=== PATIENT | female | born 1945 | race Caucasian/White ===

== ENCOUNTER 2017-06-06 10:21 | Inpatient (IN) ==
[2017-06-06] MEDS ORDERED: 0.9 % Sodium Chloride 1,000 ML IVC ONE (10:35)
[2017-06-06] MEDS ORDERED: Ondansetron 4 MG/2 ML VIAL IVP ONE (10:35)
[2017-06-06 11:00] LABS: Hemoglobin 11.2 g/dL (11.5-15.4); Mean Corpuscular HGB Conc 32.9 g/dL (31.6-35.5); Mean Corpuscular Hemoglobin 25.5 pg (28.0-33.3); Mean Corpuscular Volume 77.4 fL (83.0-100.0); Mean Platelet Volume 9.5 fL (9.4-12.4); Platelet Count 273 K/mcL (140-400); Red Blood Count 4.39 M/mcL (3.82-4.97); Red Cell Distribution Width 14.1 % (11.5-14.5)
--- NOTE | 2017-06-06 11:02 | Emergency Department Note ---
Disposition Clinical Impression: Adenocarcinoma of colon metastatic to liver, Chemotherapy induced diarrhea, Dehydration, Hyponatremia, Hypokalemia GI bleed Qualifiers: GI bleed type/associated pathology: melena Qualified Code(s): K92.1 - Melena Disposition: Admitted As Inpatient Condition: Fair Referrals: Arin Ventura CNP [Primary Care Provider] - Forms: ED Satisfaction Letter Time of Disposition: 13:43 Nausea/Vomiting/Diarrhea HPI - General Chief complaint: ED Nausea/Vomiting/Diarrhea Stated complaint: N/V/D x1 week Time Seen by Provider: 06/06/17 10:28 Source: patient, family Mode of arrival: wheelchair Limitations: no limitations Nursing Notes Reviewed: Yes Vital Signs Reviewed: Yes - History of Present Illness HPI Narrative: Patient presents to ED with the chief complaint of nausea, vomiting and diarrhea. Patient has a history of colon cancer metastatic to the liver. She is currently receiving chemotherapy and received her second dose about 8 days ago. She states she did not have any issues with her first dose, but approximately 8 days ago she started developing profuse intermittently melanic diarrhea. She states that she has been seen and evaluated twice in the emergency department. Since then. She had a CT of her abdomen and pelvis as well as a C. difficile toxin of her stool. Reports that she was given Lomotil and told to follow-up with the cancer center. She reports that over the last 2 days she has continued to get worse to the point where any time she moves she is leaving "a streak of stool" she is having frequent episodes of diarrhea that are explosive in nature and very foul-smelling. She is now also complaining of vomiting and nausea. States that the vomiting is very foul-smelling. Denies any previous abdominal surgeries. States that she has not really been able to eat or drink in the last 48 hours. She also feels short of breath and lightheaded, but denies any chest pain. Denies any abdominal pain other than feeling sore in her epigastrium from vomiting - Related Data Home Medications Medication Instructions Recorded Confirmed Aspirin [Adult Low Dose Aspirin EC] 81 mg PO DAILY 10/28/15 06/06/17 Atorvastatin [Lipitor] 40 mg PO HS 10/28/15 06/06/17 Ezetimibe [Zetia] 10 mg PO DAILY 10/28/15 06/06/17 Insulin Glargine,Hum.rec.anlog 24 unit SQ HS 10/28/15 06/06/17 [Lantus Solostar] Lisinopril [Zestril] 10 mg PO DAILY 10/28/15 06/06/17 amLODIPine [Norvasc] 2.5 mg PO DAILY 10/28/15 06/06/17 Amitriptyline HCl 75 mg PO DAILY 04/24/17 06/06/17 Docusate Sodium [Dok] 100 mg PO DAILY 04/24/17 06/06/17 Escitalopram [Lexapro] 20 mg PO DAILY 04/24/17 06/06/17 GlipiZIDE [Glipizide Xl] 5 mg PO DAILY 04/24/17 06/06/17 Insulin ASPART [NovoLOG] 0 unit SQ TID PRN 04/24/17 06/06/17 Omeprazole [PriLOSEC] 20 mg PO DAILY 04/24/17 06/06/17 Metformin HCl [Metformin HCl ER] 500 mg PO BID 06/06/17 06/06/17 Oxybutynin [Ditropan] 5 mg PO DAILY 06/06/17 06/06/17 Previous Rx's Medication Instructions Recorded Doxycycline 100 mg PO BID #60 capsule 05/10/17 LORazepam [Ativan] 1 mg PO Q4HR PRN #60 tablet 05/10/17 Lidocaine/Prilocaine [Emla] 1 appl TP AD PRN #30 gm 05/10/17 Promethazine [Phenergan] 25 mg PO Q6HR PRN #60 tablet 05/10/17 Nystatin OINT [Mycostatin] 1 appl TP QID #1 tube 06/01/17 Diphenoxylate/Atropine [Lomotil 1 each PO TID #30 tablet 06/06/17 2.5 mg/0.025 mg] Allergies Allergy/AdvReac Type Severity Reaction Status Date / Time No Known Allergies Allergy Verified 06/06/17 10:25 All systems ED: reviewed and negative except as stated. Constitutional: Reports: weakness. Denies: fever Cardiovascular: Denies: chest pain Respiratory: Reports: dyspnea Gastrointestinal: Reports: nausea, vomiting, diarrhea, melena. Denies: abdominal pain Genitourinary: Denies: dysuria Musculoskeletal: Denies: back pain Integumentary: Denies: rash Neurological: Reports: weakness. Denies: headache, confusion Endocrine: Reports: fatigue Past Medical History - Past Medical History Attestation: Yes The following information was validated with the patient. Source: patient Medical history: Reports: arthritis, cancer, coronary artery disease, diabetes, hyperlipidemia, hypertension Surgical history: Reports: cholecystectomy Psychiatric history: Reports: anxiety AREA CAPTAIN history: Reports: no AREA CAPTAIN history - Social History Smoking Status: Never smoker Smokeless Tobacco Status: No Alcohol use: Reports: none Drug use: Reports: none Physical Exam - General Limitations: no limitations General appearance: alert, in no apparent distress, other (appears ill) - Head Head exam: atraumatic, normocephalic, normal inspection - Eye Eye exam: Present: normal appearance, PERRL, EOMI - ENT ENT exam: mucous membranes dry, other (foul smelling breath, fecal type smell) - Chest Chest inspection: Present: normal inspection, symmetric chest wall rise - Respiratory Respiratory exam: Present: normal lung sounds bilaterally - Cardiovascular Cardiovascular exam: Present: tachycardia, normal heart sounds - Abdominal Exam Abdominal exam: Present: soft, Non-Tender, distention, hyperactive bowel sounds. Absent: guarding, rebound - Extremities Exam Extremities exam: Present: normal inspection, full ROM, normal capillary refill. Absent: tenderness, pedal edema - Neurological Exam Neurological exam: Present: alert, oriented X3 - Skin Skin exam: Present: warm, dry, intact, pallor Course Course Narrative: 72-year-old female presenting with diarrhea and nausea and vomiting. Appears ill. Is on chemotherapy for metastatic colon and liver cancer. Will workup and admit. She did just have a CT of her abdomen and pelvis 2 days ago, however. Her breath does smell of fecal material and I am concern over potential bowel obstruction, so we will image her again. Vital Signs Temperature 98.1 F 06/06/17 10:22 Pulse Rate 105 06/06/17 10:22 Respiratory Rate 16 06/06/17 10:22 Blood Pressure 112/75 06/06/17 10:22 O2 Sat by Pulse Oximetry 96 06/06/17 10:22 Temperature 98.1 F 06/06/17 10:22 Pulse Rate 93 06/06/17 12:16 Respiratory Rate 20 06/06/17 12:16 Blood Pressure 106/62 06/06/17 12:16 O2 Sat by Pulse Oximetry 100 06/06/17 12:16 Oxygen Delivery Oxygen Delivery Room Air Nausea/Vomiting/Diarrhea - Medical Records Medical records reviewed: Yes I reviewed the patient's medical records. - Lab Data Lab results reviewed: Yes I reviewed the patient's lab results. Result diagrams: 06/06/17 10:49 06/06/17 10:49 Lab Results 06/06/17 06/06/17 06/06/17 Range/Units 10:49 10:49 10:49 WBC 4.5 (4.3-11.1) K/mcL RBC 4.39 (3.82-4.97) M/mcL Hgb 11.2 L (11.5-15.4) g/dL Hct 34.0 L (35.3-44.9) % MCV 77.4 L (83.0-100.0) fL MCH 25.5 L (28.0-33.3) pg MCHC 32.9 (31.6-35.5) g/dL RDW 14.1 (11.5-14.5) % Plt Count 273 (140-400) K/mcL MPV 9.5 (9.4-12.4) fL Seg Neutrophils % 24.0 % Band Neutrophils % 12.0 H (0-4) % Lymphocytes % 32.0 % Monocytes % 24.0 % Eosinophils % 2.0 % Basophils % 2.0 % Metamyelocytes % 4.0 H (0) % Neutrophils # 1.6 (1.6-8.9) K/mcL Lymphocytes # 1.4 (0.6-4.6) K/mcL Monocytes # 1.1 (0.0-1.3) K/mcL Eosinophils # 0.1 (0.0-0.6) K/mcL Basophils # 0.1 (0.0-0.2) K/mcL Reactive Lymphocytes Present A (Not Present) Dohle Bodies Present A (Not Present) Platelet Estimate Normal (Normal) Polychromasia 1+ A (Not Present) Sodium 128 L (136-145) mEq/L Potassium 3.1 L (3.5-4.5) mEq/L Chloride 97 L (98-109) mEq/L Carbon Dioxide 16 L (19-29) mEq/L BUN 10 (7-20) mg/dL Creatinine 0.77 (0.57-1.11) mg/dL Est GFR ( Amer) > 60 (> 60) Est GFR (Non-Af Amer) > 60 (> 60) BUN/Creatinine Ratio 13 (6-26) Glucose 194 H (70-99) mg/dL Calculated Osmolality 270 L (280-300) Lactic Acid 1.2 (0.5-2.2) mmol/L Calcium 8.3 L (8.6-10.8) mg/dL Total Bilirubin 0.9 (0.2-1.2) mg/dL AST 18 (5-34) Units/L ALT 15 (0-55) Units/L Alkaline Phosphatase 82 (38-126) Units/L Serum Total Protein 6.5 (6.0-8.3) g/dL Albumin 2.5 L (3.5-5.0) g/dL Globulin 4.0 H (2.4-3.5) g/dL Albumin/Globulin Ratio 0.6 L (1.1-2.2) Lipase < 10 (8-78) Units/L Urine Color (Yellow) Urine Clarity (Clear) Urine pH (5.0-8.0) pH Units Ur Specific [place] (1.010-1.025) Urine Protein (Neg-Trace) mg/dL Urine Glucose (UA) (Normal) mg/dL Urine Ketones (Negative) mg/dL Urine Blood (Negative) Urine Nitrite (Negative) Urine Bilirubin (Negative) Urine Urobilinogen (Normal) mg/dL Ur Leukocyte Esterase (Negative) Urine Microscopic RBC (0-3) per hpf Urine Microscopic WBC (0-3) per hpf Ur Squamous Epith Cells (None-Few) per lpf Ur Transition Epith Cell (None-Few) per hpf Ur Renal Epithelial Cell (None-Few) per hpf Urine Bacteria (None-Few) per hpf Hyaline Casts (None-Few) per lpf WBC Casts (None Seen) per lpf Urine Mucus (Few) Ur Culture Indicated? (NO) Stool Occult Blood (Negative) Specimen Rejected Blood Type Antibody Screen 06/06/17 06/06/17 06/06/17 Range/Units 10:49 10:54 10:55 WBC (4.3-11.1) K/mcL RBC (3.82-4.97) M/mcL Hgb (11.5-15.4) g/dL Hct (35.3-44.9) % MCV (83.0-100.0) fL MCH (28.0-33.3) pg MCHC (31.6-35.5) g/dL RDW (11.5-14.5) % Plt Count (140-400) K/mcL MPV (9.4-12.4) fL Seg Neutrophils % % Band Neutrophils % (0-4) % Lymphocytes % % Monocytes % % Eosinophils % % Basophils % % Metamyelocytes % (0) % Neutrophils # (1.6-8.9) K/mcL Lymphocytes # (0.6-4.6) K/mcL Monocytes # (0.0-1.3) K/mcL Eosinophils # (0.0-0.6) K/mcL Basophils # (0.0-0.2) K/mcL Reactive Lymphocytes (Not Present) Dohle Bodies (Not Present) Platelet Estimate (Normal) Polychromasia (Not Present) Sodium (136-145) mEq/L Potassium (3.5-4.5) mEq/L Chloride (98-109) mEq/L Carbon Dioxide (19-29) mEq/L BUN (7-20) mg/dL Creatinine (0.57-1.11) mg/dL Est GFR ( Amer) (> 60) Est GFR (Non-Af Amer) (> 60) BUN/Creatinine Ratio (6-26) Glucose (70-99) mg/dL Calculated Osmolality (280-300) Lactic Acid (0.5-2.2) mmol/L Calcium (8.6-10.8) mg/dL Total Bilirubin (0.2-1.2) mg/dL AST (5-34) Units/L ALT (0-55) Units/L Alkaline Phosphatase (38-126) Units/L Serum Total Protein (6.0-8.3) g/dL Albumin (3.5-5.0) g/dL Globulin (2.4-3.5) g/dL Albumin/Globulin Ratio (1.1-2.2) Lipase (8-78) Units/L Urine Color Dark Yellow (Yellow) Urine Clarity Slightly Hazy (Clear) Urine pH 6.0 (5.0-8.0) pH Units Ur Specific [place] 1.017 (1.010-1.025) Urine Protein 100 H (Neg-Trace) mg/dL Urine Glucose (UA) 100 H (Normal) mg/dL Urine Ketones 15 H (Negative) mg/dL Urine Blood Moderate H (Negative) Urine Nitrite Negative (Negative) Urine Bilirubin Small H (Negative) Urine Urobilinogen Normal (Normal) mg/dL Ur Leukocyte Esterase Negative (Negative) Urine Microscopic RBC 15-30 H (0-3) per hpf Urine Microscopic WBC 15-30 H (0-3) per hpf Ur Squamous Epith Cells Many H (None-Few) per lpf Ur Transition Epith Cell Few (None-Few) per hpf Ur Renal Epithelial Cell Few (None-Few) per hpf Urine Bacteria None Seen (None-Few) per hpf Hyaline Casts Many H (None-Few) per lpf WBC Casts Few H (None Seen) per lpf Urine Mucus Many H (Few) Ur Culture Indicated? YES A (NO) Stool Occult Blood Positive A (Negative) Specimen Rejected Hemolyzed Blood Type Antibody Screen 06/06/17 Range/Units 11:17 WBC (4.3-11.1) K/mcL RBC (3.82-4.97) M/mcL Hgb (11.5-15.4) g/dL Hct (35.3-44.9) % MCV (83.0-100.0) fL MCH (28.0-33.3) pg MCHC (31.6-35.5) g/dL RDW (11.5-14.5) % Plt Count (140-400) K/mcL MPV (9.4-12.4) fL Seg Neutrophils % % Band Neutrophils % (0-4) % Lymphocytes % % Monocytes % % Eosinophils % % Basophils % % Metamyelocytes % (0) % Neutrophils # (1.6-8.9) K/mcL Lymphocytes # (0.6-4.6) K/mcL Monocytes # (0.0-1.3) K/mcL Eosinophils # (0.0-0.6) K/mcL Basophils # (0.0-0.2) K/mcL Reactive Lymphocytes (Not Present) Dohle Bodies (Not Present) Platelet Estimate (Normal) Polychromasia (Not Present) Sodium (136-145) mEq/L Potassium (3.5-4.5) mEq/L Chloride (98-109) mEq/L Carbon Dioxide (19-29) mEq/L BUN (7-20) mg/dL Creatinine (0.57-1.11) mg/dL Est GFR ( Amer) (> 60) Est GFR (Non-Af Amer) (> 60) BUN/Creatinine Ratio (6-26) Glucose (70-99) mg/dL Calculated Osmolality (280-300) Lactic Acid (0.5-2.2) mmol/L Calcium (8.6-10.8) mg/dL Total Bilirubin (0.2-1.2) mg/dL AST (5-34) Units/L ALT (0-55) Units/L Alkaline Phosphatase (38-126) Units/L Serum Total Protein (6.0-8.3) g/dL Albumin (3.5-5.0) g/dL Globulin (2.4-3.5) g/dL Albumin/Globulin Ratio (1.1-2.2) Lipase (8-78) Units/L Urine Color (Yellow) Urine Clarity (Clear) Urine pH (5.0-8.0) pH Units Ur Specific [place] (1.010-1.025) Urine Protein (Neg-Trace) mg/dL Urine Glucose (UA) (Normal) mg/dL Urine Ketones (Negative) mg/dL Urine Blood (Negative) Urine Nitrite (Negative) Urine Bilirubin (Negative) Urine Urobilinogen (Normal) mg/dL Ur Leukocyte Esterase (Negative) Urine Microscopic RBC (0-3) per hpf Urine Microscopic WBC (0-3) per hpf Ur Squamous Epith Cells (None-Few) per lpf Ur Transition Epith Cell (None-Few) per hpf Ur Renal Epithelial Cell (None-Few) per hpf Urine Bacteria (None-Few) per hpf Hyaline Casts (None-Few) per lpf WBC Casts (None Seen) per lpf Urine Mucus (Few) Ur Culture Indicated? (NO) Stool Occult Blood (Negative) Specimen Rejected Blood Type A NEGATIVE Antibody Screen POSITIVE - Radiology Data Radiology results reviewed: Yes I reviewed the patient's radiology results. - EKG Data EKG attestation: Yes I reviewed and interpreted this EKG. EKG results narrative: Sinus tach, rate 101, MI interval 159, QRS 120, QTC 406, left axis deviation with right bundle branch block, similar morphology to previous S.B.A.R. - Crystal Situation: Demographics, MOA Background: Presenting Complaint, Relevant PMH, Meds, & Allergies Assessment: Vital Signs, Course and respsone to treatment, Exam Concerns, Patient/Family Expectation, Pertinant Lab Results, Outstanding Labs Recommendation: Barrier(s) to disposition, Recommendation based on pending studies, treatments, or consults Crystal Report Given to: Dr. Stacie Rojas Repor Time: 13:42
[2017-06-06 11:10] LABS: Bilirubin,Urine Small (Negative); Blood,Urine Moderate (Negative); Color,Urine Dark Yellow (Yellow); Glucose,Urine (UA) 100 mg/dL (Normal); Ketones,Urine 15 mg/dL (Negative); Leukocyte Esterase,Urine Negative (Negative); Nitrite,Urine Negative (Negative); Protein,Urine 100 mg/dL (Neg-Trace); Specific Gravity,Urine 1.017 (1.010-1.025); Urobilinogen,Urine Normal (Normal)
[2017-06-06 11:12] LABS: Bacteria,Urine None Seen per hpf (None-Few); RBC,Urine 15-30 per hpf (0-3); Squamous Epithelial Cell,Urine Many per lpf (None-Few); WBC,Urine 15-30 per hpf (0-3)
[2017-06-06 11:19] LABS: Clarity,Urine Slightly Hazy (Clear)
[2017-06-06 11:26] LABS: Alanine Aminotransferase 15 Units/L (0-55); Albumin 2.5 g/dL (3.5-5.0); Albumin/Globulin Ratio 0.6 (1.1-2.2); Alkaline Phosphatase 82 Units/L (38-126); Aspartate Amino Transferase 18 Units/L (5-34); BUN/Creatinine Ratio 13 (6-26); Bilirubin,Total 0.9 mg/dL (0.2-1.2); Blood Urea Nitrogen 10 mg/dL (7-20); Calcium 8.3 mg/dL (8.6-10.8); Carbon Dioxide 16 mEq/L (19-29); Chloride 97 mEq/L (98-109); Glucose 194 mg/dL (70-99); Osmolality,Calculated 270 (280-300); Potassium 3.1 mEq/L (3.5-4.5); Sodium 128 mEq/L (136-145); Total Protein 6.5 g/dL (6.0-8.3); eGFR For African Americans > 60 (> 60); eGFR For Non-African Americans > 60 (> 60)
[2017-06-06 11:27] LABS: Lipase < 10 Units/L (8-78)
[2017-06-06 11:28] LABS: Mucus,Urine Many (Few)
[2017-06-06 11:29] LABS: Hyaline Casts,Urine Many per lpf (None-Few); White Blood Cell Casts,Urine Few per lpf (None Seen)
[2017-06-06 11:30] LABS: Renal Epithelial Cells,Urine Few per hpf (None-Few); Transitional Epi Cells,Urine Few per hpf (None-Few)
--- NOTE | 2017-06-06 11:33 | Emergency Department Note ---
START Narrative - START START: I examined this patient and my medical decision-making was reviewed with the emergency medicine resident. I agree with the documented findings, disposition and treatment plan as described except to the extent set forth below. Patient seen with emergency medicine resident Dr. Abdoul Christina, Please see a copy of his note for details of the H&P, ED evaluation, management and disposition. I have independently evaluated the patient and confirmed appropriate portions of the history and physical exam. Briefly: 72-year-old female, undergoing chemotherapy for metastatic colon and liver cancer. Patient noticed she had melanic dark stools. Which were occult blood positive on testing. She profoundly dehydrated. She is getting IV fluids and labs and abdominopelvic CT. Patient will be admitted. Provided 45 minutes of critical care services for this patient. Disposition pending.
[2017-06-06 11:36] LABS: Basophils # 0.1 K/mcL (0.0-0.2); Eosinophils # 0.1 K/mcL (0.0-0.6); Lymphocytes # 1.4 K/mcL (0.6-4.6); Monocytes # 1.1 K/mcL (0.0-1.3); Neutrophils # 1.6 K/mcL (1.6-8.9)
[2017-06-06 11:37] LABS: Reactive Lymphocytes Present (Not Present)
[2017-06-06 11:39] LABS: Dohle Bodies Present (Not Present); Platelet Estimate Normal (Normal); Polychromasia 1+ (Not Present)
--- NOTE | 2017-06-06 14:15 | Event Note ---
Date of Encounter: 06/06/17 Time of Encounter: 14:12 1. Severe dehydration likely secondary to acute gastroenteritis possibly infectious Continue hydration with IV fluids Consider antibiotic therapy depending on the etiology, send GI panel to clarify etiology 2. Hyponatremia and hypokalemia Add potassium to the IV fluids 3. History of colon cancer currently on chemotherapy, which can be causing also her diarrhea CT scan shows a liver mass that needs to be followed by oncology 4. Diabetes type 2 insulin-dependent, continue insulin sliding scale 5. Hypertension, stable 6. Positive Hemoccult, monitor CBC Protonix IV for GI prophylaxis and sequential compression devices for DVT prophylaxis. The patient will be admitted for observation, full code. Time spent on this admission 40 minutes H&P will be completed by PETTY Smith
[2017-06-06 16:43] LABS: Hematocrit 30.9 % (35.3-44.9); Hemoglobin 10.2 g/dL (11.5-15.4)
[2017-06-06] MEDS ORDERED: *HR* HYDROcodone/Acet 5/325 mg TABLET PO PRN (17:13)
[2017-06-06] MEDS ORDERED: Naloxone 0.4 MG/ML INJ IVP PRN (17:13)
[2017-06-06] MEDS ORDERED: *HR* Morphine 2 MG/ML SYRINGE IVP PRN (17:13)
[2017-06-06] MEDS ORDERED: Ondansetron 4 MG/2 ML VIAL IVP PRN (17:13)
[2017-06-06] MEDS ORDERED: Acetaminophen 325 MG TABLET PO PRN (17:13)
[2017-06-06] MEDS ORDERED: *HR* LORazepam 1 MG TABLET PO PRN (17:26)
--- NOTE | 2017-06-06 17:42 | Internal Med History&Physical ---
<Edward Smith - Last Filed: 06/06/17 18:57> Date of Encounter: 06/06/17 Time of Encounter: 16:30 Assessment and Plan (1) Dehydration Current visit: Yes Status: Acute Acute dehydration due to gastroenteritis, possibly infectious. IV fluids for hydration. GI panel ordered to determine infectious etiology. Consider abx therapy based on results. Monitor I&O, daily weight, and electrolytes in follow- up labs. (2) Electrolyte imbalance Current visit: Yes Status: Acute Acute electrolyte imbalance due to cyclical vomiting and diarrhea over the past 8 days. On admission, sodium 128, potassium 3.1, chloride 97, calcium 8.3. Will add potassium to IV 0.9 NS. Add calcium carbonate PO TID. (3) Heme positive stool Current visit: Yes Status: Acute Fecal hemoccult positive today. Monitor H/H Q6 and follow-up labs. (4) Nausea & vomiting Current visit: Yes Status: Acute Patient presents with nausea/vomiting over the past week. IVP Zofran Q6 PRN and IVP Protonix 40 mg BID. Monitor I&O and daily weight. Advance diet as tolerated. Qualifiers: Vomiting type: cyclical vomiting Vomiting Intractability: non-intractable Qualified Code(s): G43.A0 - Cyclical vomiting, not intractable (5) Diarrhea Current visit: Yes Status: Acute Acute diarrhea present for the past week, described as worsening over the past few days, watery, and explosive. Patient denies visible blood in stool. C. diff culture negative earlier this week. GI panel ordered to identify possible infectious etiology. Consider adding appropriate abx coverage based on results. Monitor I&O and daily weight. Advance diet as tolerated. IV fluids for dehydration. Qualifiers: Diarrhea type: unspecified type Qualified Code(s): R19.7 - Diarrhea, unspecified (6) History of colon cancer Current visit: Yes Status: Chronic Patient reports hx of colon cancer with mets to the liver. Recent chemotherapy treatment 8 days ago could be cause of current N/V/D. CT of the abdomen/pelvis today shows central hepatic mass measuring approximately 5.8 x 4.7 cm in size. Evaluate on prior contrast-enhanced CT. Associated intra-hepatic biliary ductal dilatation. Findings highly suspicious for cholangiocarcinoma. Metastatic disease is also in the differential. Patient currently followed by Dr. Rodriguez. (7) HTN (hypertension) Current visit: Yes Status: Chronic Hx of chronic HTN. Monitor patient and VS and continue Norvasc and lisinopril. Qualifiers: Hypertension type: essential hypertension Qualified Code(s): I10 - Essential (primary) hypertension (8) HLD (hyperlipidemia) Current visit: Yes Status: Chronic Hx of chronic HLD. Lipid panel ordered in a.m. labs. Continue Lipitor and Zetia. Qualifiers: Hyperlipidemia type: pure hypercholesterolemia Qualified Code(s): E78.00 - Pure hypercholesterolemia, unspecified; E78.0 - Pure hypercholesterolemia (9) CAD (coronary artery disease) Current visit: Yes Status: Chronic Patient reports hx of CAD. Continuous cardiac telemetry. Will continue patient' s norvasc, lisinopril, Lipitor, and Zetia. Will hold PO aspirin d/t current bleeding of unknown source and postive fecal hemoccult. Qualifiers: Coronary Disease-Associated Artery/Lesion type: unspecified vessel or lesion type [place] vs. transplanted heart: [place] heart Associated angina: angina presence unspecified Qualified Code(s): I25.10 - Atherosclerotic heart disease of [place] coronary artery without angina pectoris (10) Diabetes Current visit: Yes Status: Chronic Hx of chronic diabetes controlled with oral antihyperglycemic medications and insulin. Will hold patient's oral medication and administer low-dose correction sliding scale insulin with hypoglycemic protocol. Blood glucose monitoring before meals at bedtime. A1c ordered in a.m. labs. Qualifiers: Diabetes mellitus type: type 2 Diabetes mellitus complication status: with unspecified complications Diabetes mellitus alf insulin use: with meat specialist use Qualified Code(s): E11.8 - Type 2 diabetes mellitus with unspecified complications; Z79.4 - emanations analysis technician (current) use of insulin (11) DVT prophylaxis Current visit: Yes Status: Acute Bilateral SCDs on patient's LEs for DVT prophylaxis. Pharmacologic DVT prophylaxis contraindicated due to patient's current bleeding of unknown source. Monitor patient for continued signs of bleeding/changes in H/H. Internal Medicine - H&P: HPI Chief complaint: Nausea/Vomiting/Diarrhea Admitted From: Emergency Dept Plans for Post Hospital Care: Home History of present illness: is a 72 year old female with medical history of arthritis, CAD, diabetes controlled with oral and insulin medications, HLD, HTN, and colon cancer with metastases to liver presents to ED with chief complaint of nausea, vomiting, diarrhea for the past 8 days. Patient describes diarrhea as explosive and watery and confirms she finished doxycycline 100 mg twice a day on May 27 for prophylaxis for chemotherapy preparation. Patient reports she is still nauseous and vomited twice today and was unable to keep her medications down. Patient's last chemotherapy treatment was 8 days ago. Patient was given Lomotil at the cancer center to address diarrhea. Previous C. difficile toxin of her stool was negative this week. Patient states she has been unable to keep liquids or foods down for the past week. Patient also reports generalized weakness, SOB, and fatigue but denies recent illness, fever , chills, changes in vision, lightheadedness, dizziness, chest pain, palpitations, pre-syncope, or syncope. Upon admission, patient's vital signs included temperature of 98.1F, heart rate of 105 bpm, respiratory rate 16, BP 112/75, and SPO 296% on room air. Pertinent abnormal lab values include Hgb of 10.2, HCT of 34.0, MCV of 77.4, MCH 25.5, sodium of 128, potassium 3.1, chloride of 97, CO2 16, calcium of 8.3, glucose of 194. Fecal Hemoccult positive. Initial urinalysis indicative for culture. Patient was previously typed and screened (A negative, Positive antibody screen). Hgb and Hct unchanged from 06/01/17. CT of the abdomen/pelvis today without contrast shows central hepatic mass measuring approximately 5.84.7 cm in size better evaluated on prior contrast enhanced CT. There is associated intrahepatic biliary ductal dilatation. Findings are highly suspicious for a cholangiocarcinoma. Metastatic disease is also in the differential. No evidence of acute bowel obstruction. No significant change in the appearance of the bowel compared to prior exam. Atherosclerotic disease. Assessment patient is alert and oriented 3 and states she is only experiencing mild discomfort and nausea at this time. HR is a regular due to patient's heart murmur. Lungs are clear bilaterally on auscultation. Patient is hemodynamically stable reports only mild distress at this time due to nausea. Information taken from family, patient, chart review, and previous medical records. is a high risk for morbidity based on current dehydration and symptoms of N/V/diarrhea, immunocompromised status due to chemotherapy, risk for C. difficile, history, and risk factors and will be placed as observation status. Time spent with patient and family >40 minutes. Past Med Surg Social Fam HX - Past Medical History Source: patient, old records reviewed, obtained from family Medical history: arthritis, cancer, coronary artery disease, diabetes, hyperlipidemia, hypertension Psychiatric history: anxiety - Past Surgical History Surgical History: cholecystectomy, knee replacement - Social History Smoking Status: Never smoker Smokeless Tobacco Status: No Alcohol use: none Drug use: none Current living situation: Home, With Family Activity Level: Uses cane/walker Recent Out of Country Travel Within the Last 8 Weeks: No Exposure or Possible Exposure to Illness During Travel: No - Family History Father Race: Family Member Ethnicity: Non- Living Status: Age at : 86 Cause of : Old age Mother Race: Family Member Ethnicity: Non- Living Status: Age at : 85 Cause of : Old age Hx Family Cardiac Disorders: Yes (HD) Sister Race: Family Member Ethnicity: Non- Living Status: Age at : 66 Cause of : Complications from stroke Hx Family Cardiac Disorders: Yes (Stroke) Internal Medicine - H&P: Meds Aspirin [Adult Low Dose Aspirin EC] 81 mg PO DAILY 10/28/15 [History] Atorvastatin [Lipitor] 40 mg PO HS 10/28/15 [History] Ezetimibe [Zetia] 10 mg PO DAILY 10/28/15 [History] Insulin Glargine,Hum.rec.anlog [Lantus Solostar] 24 unit SQ HS 10/28/15 [History ] Lisinopril [Zestril] 10 mg PO DAILY 10/28/15 [History] amLODIPine [Norvasc] 2.5 mg PO DAILY 10/28/15 [History] Amitriptyline HCl 75 mg PO DAILY 04/24/17 [History] Docusate Sodium [Dok] 100 mg PO DAILY 04/24/17 [History] Escitalopram [Lexapro] 20 mg PO DAILY 04/24/17 [History] GlipiZIDE [Glipizide Xl] 5 mg PO DAILY 04/24/17 [History] Insulin ASPART [NovoLOG] 0 unit SQ TID PRN 04/24/17 [History] Omeprazole [PriLOSEC] 20 mg PO DAILY 04/24/17 [History] Doxycycline 100 mg PO BID #60 capsule 05/10/17 [Rx] LORazepam [Ativan] 1 mg PO Q4HR PRN #60 tablet 05/10/17 [Rx] Lidocaine/Prilocaine [Emla] 1 appl TP AD PRN #30 gm 05/10/17 [Rx] Promethazine [Phenergan] 25 mg PO Q6HR PRN #60 tablet 05/10/17 [Rx] Nystatin OINT [Mycostatin] 1 appl TP QID #1 tube 06/01/17 [Rx] Diphenoxylate/Atropine [Lomotil 2.5 mg/0.025 mg] 1 each PO TID #30 tablet [Rx] Metformin HCl [Metformin HCl ER] 500 mg PO BID 06/06/17 [History] Oxybutynin [Ditropan] 5 mg PO DAILY 06/06/17 [History] 3 Allergy/AdvReac Type Severity Reaction Status Date / Time No Known Allergies Allergy Verified 06/06/17 10:25 All Systems PM: A 10-system review of systems was performed and is negative for pertinent findings except as documented above in the HPI. - Constitutional Constitutional: as per HPI, fatigue, weakness, no chills, no fever(s), no night sweats - EENT Eyes: no change in vision, no discharge, no pain, no photophobia Ears: no ear discharge, no ear pain, no tinnitus Nose, mouth and throat: no dysphagia, no nasal discharge, no neck pain, no sore throat - Breasts Breasts: as per HPI - Cardiovascular Cardiovascular ROS IM: as per HPI, dyspnea, irregular heart rhythm - Respiratory Respiratory: as per HPI, dyspnea - Gastrointestinal Gastrointestinal: as per HPI, diarrhea, nausea, vomiting - Genitourinary Genitourinary: no change in urinary stream, no dysuria, no flank pain, no hematuria Menstruation: as per HPI - Musculoskeletal Musculoskeletal ROS IM: no numbness, no tingling - Integumentary Integumentary IM: no rash, no unusual bruising - Neurological Neurological ROS: weakness, no confusion, no convulsions, no focal weakness, no numbness, no tingling, no tremor(s) - Psychiatric Psychiatric: as per HPI - Endocrine Endocrine IM: as per HPI - Hematologic/Lymphatic Hematologic/Lymphatic: no easy bruising - Allergic/Immunologic Allergic/Immunologic: as per HPI - Constitutional Vitals: Temp Pulse Resp BP Pulse Ox 97.6 F 89 15 130/74 99 06/06/17 15:01 06/06/17 15:01 06/06/17 15:01 06/06/17 15:01 06/06/17 15:01 General appearance: Present: cooperative, mild distress, A&O X 3, pleasant, obese, answers questions appropriately - Head Head exam: Present: atraumatic, normocephalic - Eye Eye exam: Present: PERRL, conjuntiva pink, sclera anicteric Pupils: Present: PERRL - ENT ENT exam: Present: normal exam, normal external ear exam - Neck Neck exam general surgery: Present: normal inspection, supple, trachea midline - Respiratory Respiratory exam: Present: CTAB. Absent: accessory muscle use, rales, rhonchi, wheezes - Cardiovascular Cardiovascular exam: Present: irregular rhythm - GI/Abdominal GI/Abdominal exam: Present: normal bowel sounds, soft, no peritoneal signs. Absent: distended, tenderness - Rectal Rectal exam: Present: deferred - Additional comments: exam deferred. - Extremities Exam Extremities exam: Present: warm, radial pulses palpable and symmetrical. Absent : calf tenderness, cyanotic, pedal edema - Back Exam Back exam: Present: normal inspection - Neurological Exam Neurological exam: Present: CN II-XII intact, oriented X3, no focal deficits. Absent: pronater drift, facial droop, speech deficit - Psychiatric Psychiatric exam: Present: normal affect, normal mood - Skin Skin exam: Present: dry, intact Internal Med - H&P Results - Labs CBC & Chem 7: 06/06/17 16:24 06/06/17 10:49 Labs: Short CBC 06/06/17 Range/Units 16:24 Hgb 10.2 L (11.5-15.4) g/dL Hct 30.9 L (35.3-44.9) % - EKG Data EKG shows normal: sinus rhythm Rate: tachycardia - EKG Data Prior EKG available for review: yes EKG comments: 06/06/17 18:16 EKG dated 06/13/12 shows sinus rhythm with incomplete RBBB, nonspecific T-wave changes and septal leads. Normal ECG. EKG dated 06/06/17 sinus tachycardia with right bundle branch block. Abnormal ECG. <Rainer-Matovelle,Alcides H - Last Filed: 06/07/17 07:16> Date of Encounter: 06/07/17 Internal Medicine - H&P: HPI History of present illness: is a 72 year old female All Systems PM: A 10-system review of systems was performed and is negative for pertinent findings except as documented above in the HPI. - Constitutional Vitals: Temp Pulse Resp BP Pulse Ox 97.9 F 80 14 113/72 96 06/07/17 02:50 06/07/17 02:50 06/07/17 02:50 06/07/17 02:50 06/07/17 02:50 Internal Med - H&P Results - Labs CBC & Chem 7: 06/07/17 05:19 06/07/17 05:19 Labs: Short CBC 06/06/17 06/06/17 06/07/17 Range/Units 16:24 22:09 05:19 WBC 3.9 L (4.3-11.1) K/mcL Hgb 10.2 L 9.6 L 9.2 L (11.5-15.4) g/dL Hct 30.9 L 30.0 L 27.9 L (35.3-44.9) % Plt Count 219 (140-400) K/mcL Neutrophils # 1.5 L (1.6-8.9) K/mcL BMP 06/07/17 05:19 Sodium 132 L Potassium 2.8 L Chloride 104 Carbon Dioxide 21 BUN 8 Creatinine 0.72 Glucose 131 H Calcium 7.5 L Liver Function 06/07/17 Range/Units 05:19 Total Bilirubin 0.5 (0.2-1.2) mg/dL AST 21 (5-34) Units/L ALT 12 (0-55) Units/L Alkaline Phosphatase 65 (38-126) Units/L Albumin 2.0 L (3.5-5.0) g/dL - Attending Attestation 1. Severe dehydration likely secondary to acute gastroenteritis possibly infectious Continue hydration with IV fluids Consider antibiotic therapy depending on the etiology, send GI panel to clarify etiology 2. Hyponatremia and hypokalemia Add potassium to the IV fluids 3. History of colon cancer currently on chemotherapy, which can be causing also her diarrhea CT scan shows a liver mass that needs to be followed by oncology 4. Diabetes type 2 insulin-dependent, continue insulin sliding scale 5. Hypertension, stable 6. Positive Hemoccult, monitor CBC Protonix IV for GI prophylaxis and sequential compression devices for DVT prophylaxis. The patient will be admitted for observation, full code. Time spent on this admission 40 minutes For this encounter, I have reviewed the CAR STEREO INSTALLER or PA documentation, treatment plan, and medical decision making; and I have had face to face time with this patient.
[2017-06-06] MEDS ORDERED: Dextrose Gel 15 GM PO PRN ×2 (18:41)
[2017-06-06] MEDS ORDERED: D5% in Water 1,000 ML IVC PRN (18:41)
[2017-06-06] MEDS ORDERED: *HR* Dextrose 50 % in Water (Syg) 50 ML SYRINGE IVP PRN (18:41)
--- NOTE | 2017-06-06 19:53 | Electrocardiograph Report ---
[place] [id number] Test Date: 2017-06-06 Pat Name: Keri Miller Department: 103 Room: 3A48 Gender: F Site Operations Manager: MEGHANA : 1945 Requested By: Abdoul Christina Order Number: [id number] Reading MD: Angelo Ramirez MD Measurements Intervals [place] Rate: 101 P: 43 IA: 159 QRS: 2 QRSD: 120 T: 25 QT: 348 QTc: 406 Interpretive Statements SINUS TACHYCARDIA RIGHT BUNDLE BRANCH BLOCK Electronically Signed On 06-06-2017 19:51:46 EDT by Angelo Ramirez MD
[2017-06-06] MEDS: Insulin LISPRO 300 UNITS/3 ML VIAL SQ SCH ×2 (20:28→20:29)
[2017-06-06] MEDS: Pantoprazole 40 MG VIAL IVP SCH (20:31)
[2017-06-06] MEDS: amLODIPine 5 MG TABLET PO SCH (20:32)
[2017-06-06 22:18] LABS: Hemoglobin 9.6 g/dL (11.5-15.4)
[2017-06-07 05:47] LABS: Basophils % 0.3 %; Eosinophils # 0.1 K/mcL (0.0-0.6); Eosinophils % 1.5 %; Hematocrit 27.9 % (35.3-44.9); Hemoglobin 9.2 g/dL (11.5-15.4); Immature Granulocytes % 0.5 % (0-4); Lymphocytes % 36.9 %; Mean Corpuscular Hemoglobin 25.8 pg (28.0-33.3); Mean Corpuscular Volume 78.4 fL (83.0-100.0); Mean Platelet Volume 9.6 fL (9.4-12.4); Monocytes # 0.9 K/mcL (0.0-1.3); Monocytes % 22.9 %; Neutrophils # 1.5 K/mcL (1.6-8.9); Platelet Count 219 K/mcL (140-400); Red Blood Count 3.56 M/mcL (3.82-4.97); Red Cell Distribution Width 14.3 % (11.5-14.5); Segmented Neutrophils % 37.9 %
[2017-06-07 05:53] LABS: Lymphocytes # 1.4 K/mcL (0.6-4.6)
[2017-06-07 05:58] LABS: INR 1.6; Prothrombin Time 17.1 Seconds (9.4-12.1)
[2017-06-07 06:00] LABS: Alanine Aminotransferase 12 Units/L (0-55); Albumin/Globulin Ratio 0.6 (1.1-2.2); Alkaline Phosphatase 65 Units/L (38-126); Aspartate Amino Transferase 21 Units/L (5-34); BUN/Creatinine Ratio 11 (6-26); Bilirubin,Total 0.5 mg/dL (0.2-1.2); Blood Urea Nitrogen 8 mg/dL (7-20); Calcium 7.5 mg/dL (8.6-10.8); Carbon Dioxide 21 mEq/L (19-29); Chloride 104 mEq/L (98-109); Chol/HDL Ratio 2.9 (0-4.9); Globulin 3.1 g/dL (2.4-3.5); Glucose 131 mg/dL (70-99); HDL Cholesterol 23 mg/dL (40-59); LDL Cholesterol,Calculated 32 mg/dL (0-99); Magnesium 1.1 mg/dL (1.6-2.6); Osmolality,Calculated 274 (280-300); Potassium 2.8 mEq/L (3.5-4.5); Sodium 132 mEq/L (136-145); Triglycerides 56 mg/dL (< 150); eGFR For African Americans > 60 (> 60); eGFR For Non-African Americans > 60 (> 60)
[2017-06-07 06:01] LABS: Activated Partial Thrombo Time 29.7 Seconds (26.0-36.0); Cholesterol 66 mg/dL (< 200); Total Protein 5.1 g/dL (6.0-8.3)
[2017-06-07] MEDS: Insulin LISPRO 300 UNITS/3 ML VIAL SQ SCH ×4 (07:57→23:41)
[2017-06-07] MEDS ORDERED: Potassium Chloride Elixir 20 MEQ/15 ML UDC PO ONE (08:48)
--- NOTE | 2017-06-07 08:59 | Internal Med Progress Note ---
<Ernestina Taylor - Last Filed: 06/07/17 10:59> Date of Encounter: 06/07/17 Time of Encounter: 08:58 - Assessment and plan (1) Diarrhea Current Visit: Yes Status: Acute Assessment and plan: Acute diarrhea for 8 days that has been watery and multiple times a day. C diff culture was negative earlier this week may be due to gastroenteritis, infectious etiology. Consider metastases etiology. Patient has a history of colon cancer with metastases deliver. Followed by Dr. Rodriguez Recent chemotherapy treatment 8 days ago and may be the cause of the current nausea vomiting and diarrhea. Patient stated that she still having at least 8 bowel movements a day however she does not have nausea or vomiting today and is able to tolerate a regular meal. Denies melena, abdominal pain, fever, chills. Patient is hemodynamically stable. -Today Low K 2.8, Mg 1.1 -CT of the abdomen/pelvis today shows central hepatic mass measuring approximately 5.8 x 4.7 cm in size. Seen better on prior study. Associated intra-hepatic biliary ductal dilatation. Findings highly suspicious for cholangiocarcinoma -consulted G.I -order MRCP per G.I. -consulted oncology -GI panel ordered -consider adding antibiotic coverage based on results -supplement potassium and magnesium -will continue to monitor electrolytes monitor I&O and daily weights Qualifiers: Diarrhea type: unspecified type Qualified Code(s): R19.7 - Diarrhea, unspecified (2) Dehydration Current Visit: Yes Status: Acute Assessment and plan: Acute dehydration probably do to gastroenteritis most likely infectious potassium (2.8) and magnesium (1.1) was low today -supplement potassium and magnesium -continue to monitor electrolytes -continue IV fluids -Monitor I&O, and daily weights (3) Electrolyte imbalance Current Visit: Yes Status: Acute Assessment and plan: Potassium was low today (2.8) so we supplemented will continue to monitor (4) Heme positive stool Current Visit: Yes Status: Acute Assessment and plan: Fecal heme occult was positive maybe due to history of colon cancer with mets to the liver hemoglobin has decreased in this today 9.2. Formally 11.2 at admission yesterday patient denies dizziness, weakness, melena -Consult G.I. -consult ONc -will continue to monitor H&H (5) History of colon cancer Current Visit: Yes Status: Chronic Assessment and plan: Patient has a history of colon cancer with metastases deliver. Followed by Dr. Rodriguez Recent chemotherapy treatment 8 days ago and may be the cause of the current nausea vomiting and diarrhea. -CT of the abdomen/pelvis today shows central hepatic mass measuring approximately 5.8 x 4.7 cm in size. Associated intra-hepatic biliary ductal dilatation. Findings highly suspicious for cholangiocarcinoma -metastatic disease is on the differential. (6) HTN (hypertension) Current Visit: Yes Status: Chronic Assessment and plan: Patient has history of hypertension continue home medications of amlodipine and lisinopril Qualifiers: Hypertension type: essential hypertension Qualified Code(s): I10 - Essential (primary) hypertension (7) HLD (hyperlipidemia) Current Visit: Yes Status: Chronic Assessment and plan: Patient has a history of hyperlipidemia will continue home medication atorvastatin Qualifiers: Hyperlipidemia type: pure hypercholesterolemia Qualified Code(s): E78.00 - Pure hypercholesterolemia, unspecified; E78.0 - Pure hypercholesterolemia (8) CAD (coronary artery disease) Current Visit: Yes Status: Chronic Assessment and plan: Patient has a history of CAD -Will continue patient's norvasc, lisinopril, Lipitor, and Zetia -Will hold PO aspirin d/t current bleeding of unknown source and postive fecal hemoccult Qualifiers: Coronary Disease-Associated Artery/Lesion type: unspecified vessel or lesion type [place] vs. transplanted heart: [place] heart Associated angina: angina presence unspecified Qualified Code(s): I25.10 - Atherosclerotic heart disease of [place] coronary artery without angina pectoris (9) Diabetes Current Visit: Yes Status: Chronic Assessment and plan: Patient has a history of diabetes is on low-dose sliding scale insulin Qualifiers: Diabetes mellitus type: type 2 Diabetes mellitus complication status: with unspecified complications Diabetes mellitus terminal operations manager insulin use: with terminal operations manager use Qualified Code(s): E11.8 - Type 2 diabetes mellitus with unspecified complications; Z79.4 - buttermaker (current) use of insulin (10) DVT prophylaxis Current Visit: Yes Status: Acute Assessment and plan: Bilateral SCDs on patient's LEs for DVT prophylaxis Pharmacologic DVT prophylaxis contraindicated due to patient's current bleeding of unknown source - Subjective Interval history: Patient sitting comfortably in bed eating breakfast while watching television. She stated that she is still having the same amount of bowel movements which is at least 8 per day, loose runny stools. She stated that she had nausea and vomiting yesterday but not today. Enter stated that she would see to it that the tech would get the G.I. panel. She denies melena, abdominal pain, chest pain, shortness of breath - Constitutional Vitals: Temp Pulse Resp BP Pulse Ox 97.6 F 73 15 98/59 97 06/07/17 07:47 06/07/17 07:47 06/07/17 07:47 06/07/17 07:47 06/07/17 07:47 General appearance: Present: cooperative, mild distress, A&O X 3, pleasant, obese, answers questions appropriately Exam: Gen.: Vitals noted. No acute distress. AAOx3 HEENT: oropharynx clear, Normocephalic, atraumatic Neck: Supple. No adenopathy. Cardiac: RRR, systolic murmur, Pulmonary: CTA bilaterally, no wheezes, rales or rhonchi, equal chest expansion Abdomen: soft, nontender, Bowel sounds noted, no guarding MSK: ROM intact, no joint swelling noted Extremities: no BLE edema, minimal tender calf, no cyanosis or clubbing Neuro: A&Ox3, moves all extremities, no focal deficits Psych: Appropriate mood and behavior Internal Medicine: Result - Labs CBC & Chem 7: 06/07/17 05:19 06/07/17 05:19 Labs: Short CBC 06/06/17 06/06/17 06/07/17 Range/Units 16:24 22:09 05:19 WBC 3.9 L (4.3-11.1) K/mcL Hgb 10.2 L 9.6 L 9.2 L (11.5-15.4) g/dL Hct 30.9 L 30.0 L 27.9 L (35.3-44.9) % Plt Count 219 (140-400) K/mcL Neutrophils # 1.5 L (1.6-8.9) K/mcL BMP 06/07/17 05:19 Sodium 132 L Potassium 2.8 L Chloride 104 Carbon Dioxide 21 BUN 8 Creatinine 0.72 Glucose 131 H Calcium 7.5 L Liver Function 06/07/17 Range/Units 05:19 Total Bilirubin 0.5 (0.2-1.2) mg/dL AST 21 (5-34) Units/L ALT 12 (0-55) Units/L Alkaline Phosphatase 65 (38-126) Units/L Albumin 2.0 L (3.5-5.0) g/dL - ABG Interpretation ABG results: PT/INR, D-dimer PT 17.1 Seconds (9.4-12.1) H 06/07/17 05:19 Consult Discharge Plan - Plan Referrals: Arin Ventura, OCCUPATIONAL HEALTH AND SAFETY MANAGER [Primary Care Provider] - <Alcides Foster H - Last Filed: 06/07/17 15:59> Date of Encounter: 06/07/17 - Constitutional Vitals: Temp Pulse Resp BP Pulse Ox 97.7 F 74 16 98/52 99 06/07/17 15:28 06/07/17 15:28 06/07/17 15:28 06/07/17 15:28 06/07/17 15:28 Internal Medicine: Result - Labs CBC & Chem 7: 06/07/17 05:19 06/07/17 05:19 Labs: Short CBC 06/06/17 06/06/17 06/07/17 Range/Units 16:24 22:09 05:19 WBC 3.9 L (4.3-11.1) K/mcL Hgb 10.2 L 9.6 L 9.2 L (11.5-15.4) g/dL Hct 30.9 L 30.0 L 27.9 L (35.3-44.9) % Plt Count 219 (140-400) K/mcL Neutrophils # 1.5 L (1.6-8.9) K/mcL BMP 06/07/17 05:19 Sodium 132 L Potassium 2.8 L Chloride 104 Carbon Dioxide 21 BUN 8 Creatinine 0.72 Glucose 131 H Calcium 7.5 L Liver Function 06/07/17 Range/Units 05:19 Total Bilirubin 0.5 (0.2-1.2) mg/dL AST 21 (5-34) Units/L ALT 12 (0-55) Units/L Alkaline Phosphatase 65 (38-126) Units/L Albumin 2.0 L (3.5-5.0) g/dL - ABG Interpretation ABG results: PT/INR, D-dimer PT 17.1 Seconds (9.4-12.1) H 06/07/17 05:19 - Attending Attestation INsist on GI panel GI recommendations appreciated I examined this patient and my medical decision-making was reviewed with the Resident Physician. I agree with the documented findings, disposition and treatment plan as described except to the extent set forth below.
[2017-06-07] MEDS: amLODIPine 5 MG TABLET PO SCH (10:03)
[2017-06-07] MEDS: Pantoprazole 40 MG VIAL IVP SCH ×2 (10:14→20:24)
[2017-06-07] MEDS: (Ezetimibe [Zetia] 10 MG) PO SCH ×2 (10:15)
[2017-06-07] MEDS: Nystatin OINT 15 GM TUBE TP SCH ×4 (10:16→16:05)
[2017-06-07] MEDS: Magnesium Oxide 400 MG TABLET PO SCH ×2 (10:59→21:27)
--- NOTE | 2017-06-07 13:49 | Oncology Inp Consult Note ---
Date of Encounter: 06/07/17 Time of Encounter: 13:37 Assessment and Plan (1) Cholangiocarcinoma Status: Acute Assessment and plan: - s/p 2 cycles of FOLFOX. Scans showed not substantial change compared with scans prior scan, but it was still too early to assess for response. Probably will need re staging scans after completion of 4 cycles of palliative response to assess for response. - Scans showed associated biliary ductal dilation, but bilirrubin values remain within normal parameters. - Please upon discharge, arrange for outpatient follow up with primary oncologist Dr. Rodriguez. (2) Diarrhea Status: Acute Assessment and plan: - Differential include chemo associated diarrheic, but agree with infectious work up. If work up turns out to rule out negative for infections, consider to start symptomatic management with imodium PRN. I would appreciate GI input. - She reports that her current episode started during the first 48-72 hours after starting cycle 2 of FOLFOX, what raises the concern that this could be primarily chemo-associated diarrhea. Qualifiers: Diarrhea type: unspecified type Qualified Code(s): R19.7 - Diarrhea, unspecified (3) Anemia Status: Acute Assessment and plan: - Worsening. Probably a combination of chemo-associated anemia due to bone marrow suppression along with anemia due to blood loss ( in view of positive occult blood in stool). I agree with GI consul. - Monitor CBC daily. Qualifiers: Anemia type: unspecified type Qualified Code(s): D64.9 - Anemia, unspecified (4) History of colon cancer Status: Chronic Assessment and plan: - CT scan showed not changes at the level of the colon. (5) Diabetes Status: Chronic Assessment and plan: - Management as per primary team. 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 was started on FOLFOX for management of her unresectable cholangiocarcinoma in 05/16/17. She has received a total of 2 cycles, being due for cycle 3 next week. She reports that the first cycle of FOLFOX was well tolerated, but she experienced diarrhea 1-2 days after initiation of cycle 2. She reports that she was still receiving 5FU through the IV pump when she noticed the first episode of diarrhea. On 06/04 she took a couple of tablets of imodium with not response, she reports taking 6 tablets on 03/05 without response neither, having multiple ( more than 7 ) episodes of diarrhea. She reports no sick contacts and denies a history of chronic/intermittent diarrhea. She was tested for occult blood and found positive and a GI consult has been requested. She was unaccompanied during the visit. She underwent a CT abdomen and pelvis during the current admission ( 06/06) that revealed previous hepatic mass consisting with unresectable cholangiocarcinoma: a central hepatic masss measuring approximately 5.8 x [address] scan prior to the first cycle of chemotherapy ( CT from 04/24) revealed that the mass dimensions were 5 x 5.7 cm, so overall it has not changed substantially. She denies abdominal pain, fever and her labs showed no leucocytosis. She expressed understanding of her unresectable cholangiocarcinoma. Review of system positive for diarrhea, negative for nausea, chest pain, fever, headache. Past Med Surg Social Fam HX - Past Medical History Medical history: arthritis, cancer, coronary artery disease, diabetes, hyperlipidemia, hypertension Psychiatric history: anxiety - Past Surgical History Surgical History: cholecystectomy, knee replacement - Social History Smoking Status: Never smoker Smokeless Tobacco Status: No Alcohol use: none Drug use: none - Family History Father Race: Family Member Ethnicity: Non- Living Status: Age at : 86 Cause of : Old age Mother Race: Family Member Ethnicity: Non- Living Status: Age at : 85 Cause of : Old age Hx Family Cardiac Disorders: Yes (HD) Sister Race: Family Member Ethnicity: Non- Living Status: Age at : 66 Cause of : Complications from stroke Hx Family Cardiac Disorders: Yes (Stroke) Medications and Allergies Aspirin [Adult Low Dose Aspirin EC] 81 mg PO DAILY 10/28/15 [History] Atorvastatin [Lipitor] 40 mg PO HS 10/28/15 [History] Ezetimibe [Zetia] 10 mg PO DAILY 10/28/15 [History] Insulin Glargine,Hum.rec.anlog [Lantus Solostar] 24 unit SQ HS 10/28/15 [History ] Lisinopril [Zestril] 10 mg PO DAILY 10/28/15 [History] amLODIPine [Norvasc] 2.5 mg PO DAILY 10/28/15 [History] Amitriptyline HCl 75 mg PO DAILY 04/24/17 [History] Docusate Sodium [Dok] 100 mg PO DAILY 04/24/17 [History] Escitalopram [Lexapro] 20 mg PO DAILY 04/24/17 [History] GlipiZIDE [Glipizide Xl] 5 mg PO DAILY 04/24/17 [History] Insulin ASPART [NovoLOG] 0 unit SQ TID PRN 04/24/17 [History] Omeprazole [PriLOSEC] 20 mg PO DAILY 04/24/17 [History] Doxycycline 100 mg PO BID #60 capsule 05/10/17 [Rx] LORazepam [Ativan] 1 mg PO Q4HR PRN #60 tablet 05/10/17 [Rx] Lidocaine/Prilocaine [Emla] 1 appl TP AD PRN #30 gm 05/10/17 [Rx] Promethazine [Phenergan] 25 mg PO Q6HR PRN #60 tablet 05/10/17 [Rx] Nystatin OINT [Mycostatin] 1 appl TP QID #1 tube 06/01/17 [Rx] Diphenoxylate/Atropine [Lomotil 2.5 mg/0.025 mg] 1 each PO TID #30 tablet [Rx] Metformin HCl [Metformin HCl ER] 500 mg PO BID 06/06/17 [History] Oxybutynin [Ditropan] 5 mg PO DAILY 06/06/17 [History] 3 Allergy/AdvReac Type Severity Reaction Status Date / Time No Known Allergies Allergy Verified 06/06/17 10:25 Constitutional: Absent: anorexia, chills, fever(s) Cardiovascular: Absent: chest pain with activity, edema, palpitations Respiratory: Absent: cough, dyspnea, hemoptysis Gastrointestinal: Present: diarrhea. Absent: abdominal pain, dysphagia Musculoskeletal: Absent: arthralgias, joint swelling Integumentary: Absent: photosensitivity, pruritus Neurological: Absent: abnormal hearing, behavioral changes, burning sensations Psychiatric: Absent: anxiety, behavioral changes, confusion Endocrine: Absent: change in body appearance, polyuria Hematologic/Lymphatic: Present: as per HPI. Absent: easy bruising Oncology - Exam - Constitutional Vitals: Temp Pulse Resp BP Pulse Ox 97.9 F 83 15 100/54 99 06/07/17 10:25 06/07/17 10:25 06/07/17 10:06/07/17 10:06/07/17 10:25 - Head Head exam: Present: normal inspection, normocephalic - Eye Eye exam: Present: EOMI, normal appearance - ENT ENT exam: Present: mucous membranes moist, normal exam - Neck Neck exam: Present: normal inspection. Absent: tenderness - Respiratory Respiratory exam: Present: CTAB. Absent: prolonged expiratory phase, rales - Cardiovascular Cardiovascular exam: Present: RRR. Absent: irregular rhythm, +S1 - GI/Abdominal GI/Abdominal exam: Present: normal bowel sounds, soft (There is not tenderness with superficial or deep palpation. ). Absent: organomegaly, pulsatile mass, rebound, rigid - Extremities Exam Extremities exam: Absent: normal inspection, pedal edema - Back Exam Back exam: Present: normal inspection. Absent: paraspinal tenderness - Neurological Exam Neurological exam: Present: alert, CN II-XII intact, oriented X3. Absent: altered - Psychiatric Psychiatric exam: Present: normal mood. Absent: anxious, depressed - Skin Skin exam: Present: normal color. Absent: cyanosis, diaphoretic Oncology - Results Labs: Short CBC 06/06/17 06/06/17 06/07/17 Range/Units 16:24 22:09 05:19 WBC 3.9 L (4.3-11.1) K/mcL Hgb 10.2 L 9.6 L 9.2 L (11.5-15.4) g/dL Hct 30.9 L 30.0 L 27.9 L (35.3-44.9) % Plt Count 219 (140-400) K/mcL Neutrophils # 1.5 L (1.6-8.9) K/mcL BMP 06/07/17 05:19 Sodium 132 L Potassium 2.8 L Chloride 104 Carbon Dioxide 21 BUN 8 Creatinine 0.72 Glucose 131 H Calcium 7.5 L Liver Function 06/07/17 Range/Units 05:19 Total Bilirubin 0.5 (0.2-1.2) mg/dL AST 21 (5-34) Units/L ALT 12 (0-55) Units/L Alkaline Phosphatase 65 (38-126) Units/L Albumin 2.0 L (3.5-5.0) g/dL Consult Discharge Plan - Plan Referrals: Arin Ventura, [facility] [Primary Care Provider] -
--- NOTE | 2017-06-07 15:18 | Gastroenterology Consult Note ---
<Claudine Oates - Last Filed: 06/07/17 15:28> Date of Encounter: 06/07/17 Time of Encounter: 12:30 - Assessment and plan (1) Diarrhea Status: Acute Assessment and plan: Diarrhea is likely related to Forfox, however will check C-dif PSR and await stool studies for infectious etiology as she is immunocompromised on chemotherapy. She is receiving IV hydration and eating well. She had colonoscopy 1 month ago and is being followed by oncology. Chemo therapy regimen may need adjusted at their discretion. Will also check CA 19-9 and CEA. Qualifiers: Diarrhea type: unspecified type Qualified Code(s): R19.7 - Diarrhea, unspecified Code(s): R19.7 - Diarrhea, unspecified (2) History of colon cancer Status: Chronic Assessment and plan: Followed by oncology. (3) Cholangiocarcinoma Status: Acute Assessment and plan: Liver mass suspicious for cholangiocarcinoma MRCP pending. (4) Anemia Status: Acute Assessment and plan: Currently stable at 9.2. Hemoccult positive. No salome blood. Likely due to chemotherapy but will monitor. Qualifiers: Anemia type: unspecified type Qualified Code(s): D64.9 - Anemia, unspecified - Time Spent With Patient Total time spent is greater than 50% in coordination of care (as documented) at patient's floor/unit and/or counseling patient: GI History of Present Illness - Data of Consult Patient: known to practice within the last 3 years Consult date: 06/07/17 Requesting Physician: Alcides Foster - Consult Narrative Reason for consult: diarrhea History of present illness: is a 72 year old female who presented with an 8 day history of diarrhea. She had colonoscopy and polypectomy 04/24/17 and pathology revealed poorly differentiated adenocarcinoma. Pet scan showed hypermetabolic focus in the liver and CT guided liver biopsy was done. Liver mass is 5.8 cm. Pt was referred to oncology and started on Forfox on in May. She reports diarrhea started 2 days following 2nd chemotherapy injection approximately 9 days ago. She describes diarrhea as watery, explosive and green in color. She reports occasional incontinence of stool which is new onset. She also had nausea and vomiting x 2 episodes yesterday but is now resolved. She denies any abdominal pain or tenderness. She denies any bloody or tarry stools but stool was positive for occult blood. She is on aspirin at home, denies any NSAID use. She has also been taking phenergan and lomotil at home with little relief of diarrhea. She has a past medical history of CAD with coronary stent 10 years ago , DM, HLD, and HTN. Past Med Surg Social Fam HX - Past Medical History Medical history: arthritis, cancer, coronary artery disease, diabetes, hyperlipidemia, hypertension Psychiatric history: anxiety - Past Surgical History Surgical History: cholecystectomy, knee replacement - Social History Smoking Status: Never smoker Smokeless Tobacco Status: No Alcohol use: none Drug use: none - Family History Father Race: Family Member Ethnicity: Non- Living Status: Age at : 86 Cause of : Old age Mother Race: Family Member Ethnicity: Non- Living Status: Age at : 85 Cause of : Old age Hx Family Cardiac Disorders: Yes (HD) Sister Race: Family Member Ethnicity: Non- Living Status: Age at : 66 Cause of : Complications from stroke Hx Family Cardiac Disorders: Yes (Stroke) Review of Systems: GI: as per [place] GENERAL: denies fever, or chills EYES: denies yellow discoloration ENT: denies pain with swallowing or difficulty swallowing CARDIO: denies chest pain, palpitations RESP: No Shortness of breath with exertion : denies change in color of urine NEURO: denies any weakness HEME: Denies any bruising MS: denies joint pain, joint swelling or back pain. DERM: denies rash or itching PSYCH: Denies history of anxiety or depression - Constitutional Vitals: Temp Pulse Resp BP Pulse Ox 97.9 F 83 15 100/54 99 06/07/17 10:25 06/07/17 10:25 06/07/17 10:25 06/07/17 10:25 06/07/17 10:25 Exam: CONSTITUTIONAL:~alert, no acute distress.~HEAD:~normocephalic.~EYES:~no jaundice.~NECK:~no obvious swelling.~HEART:~regular rate and rhythm, no murmurs. ~LUNGS:~bilateral fair air exchange scattered bibasilar crackles.~ABDOMEN:~ obese, non distended, soft, non tender, no masses pulpable, no organomegaly.~ RECTAL EXAM:~Deferred.~EXTREMITIES:~no clubbing, or cyanosis trace BLE edema.~ SKIN:~pallor noted, no stigmata of chronic liver disease.~NEUROLOGIC:~no obvious focal defect.~~~~ Results - Labs CBC & Chem 7: 06/07/17 05:19 06/07/17 05:19 Labs: Last Result Calcium 7.5 mg/dL (8.6-10.8) L 06/07/17 05:19 Triglycerides 56 mg/dL (< 150) 06/07/17 05:19 Stool Occult Blood Positive (Negative) A 06/06/17 10:54 Entire Visit Hgb 9.2 g/dL (11.5-15.4) L 06/07/17 05:19 Hct 27.9 % (35.3-44.9) L 06/07/17 05:19 PT 17.1 Seconds (9.4-12.1) H 06/07/17 05:19 Total Bilirubin 0.5 mg/dL (0.2-1.2) 06/07/17 05:19 AST 21 Units/L (5-34) 06/07/17 05:19 ALT 12 Units/L (0-55) 06/07/17 05:19 Lipase < 10 Units/L (8-78) 06/06/17 10:49 - ABG ABG results: PT/INR, D-dimer PT 17.1 Seconds (9.4-12.1) H 06/07/17 05:19 Consult Discharge Plan - Plan Instructions: Gastrointestinal Bleeding (DC) Additional Instructions: -Follow up with your oncologist and re-schedule chemotherapy -Follow up with PCP in about a week -continue imodium -continue magnesium -stay hydrated with water -return to hospital if you should worsen such as fever, chills, worsened diarrhea, weakness Referrals: Arin Ventura CNP [Primary Care Provider] - 06/18/17 10:30 am Prescriptions: Loperamide [Imodium] 2 mg PO Q4HR PRN 3 Days #24 capsule PRN Reason: Diarrhea Loperamide [Imodium] 2 mg PO BID 7 Days #14 capsule Magnesium Oxide [Mag-Ox] 400 mg PO BID 7 Days #14 tablet <Jesus Mullins - Last Filed: 06/19/17 07:58> Date of Encounter: 06/07/17 Time of Encounter: 15:30 - Time Spent With Patient Total time spent is greater than 50% in coordination of care (as documented) at patient's floor/unit and/or counseling patient: GI History of Present Illness - Data of Consult Requesting Physician: Alcides Foster - Consult Narrative History of present illness: is a 72 year old female who presented with 8 days of diarrhea. She has been on FOLFOX since May 2017 which certainly could be the issue here. Would check a C Difficile PCR also. Spoke with Oncology. Nausea and vomiting now controlled. I personally examined and interviewed her. Reviewed the old records and scans personally. Jesus Mullins MD - Constitutional Vitals: Temp Pulse Resp BP Pulse Ox 98.4 F 79 18 137/79 98 06/10/17 10:57 06/10/17 10:57 06/10/17 10:57 06/10/17 10:57 06/10/17 10:57 Results - Labs CBC & Chem 7: 06/10/17 05:02 06/10/17 05:02 Labs: Last Result Calcium 7.8 mg/dL (8.6-10.8) L 06/10/17 05:02 Triglycerides 56 mg/dL (< 150) 06/07/17 05:19 Stool Occult Blood Positive (Negative) A 06/06/17 10:54 Entire Visit Hgb 9.1 g/dL (11.5-15.4) L 06/10/17 05:02 Hct 28.1 % (35.3-44.9) L 06/10/17 05:02 PT 17.1 Seconds (9.4-12.1) H 06/07/17 05:19 Total Bilirubin 0.5 mg/dL (0.2-1.2) 06/07/17 05:19 AST 21 Units/L (5-34) 06/07/17 05:19 ALT 12 Units/L (0-55) 06/07/17 05:19 Lipase < 10 Units/L (8-78) 06/06/17 10:49 Carcinoembryonic Ag 2.2 ng/mL (0-5.0) 06/07/17 16:40 CA 19-9 Antigen 10 U/mL (0-37) 06/08/17 Unknown - ABG ABG results: PT/INR, D-dimer PT 17.1 Seconds (9.4-12.1) H 06/07/17 05:19
[2017-06-07 17:21] LABS: BUN/Creatinine Ratio 12 (6-26); Blood Urea Nitrogen 8 mg/dL (7-20); Calcium 7.7 mg/dL (8.6-10.8); Carbon Dioxide 21 mEq/L (19-29); Chloride 107 mEq/L (98-109); Glucose 184 mg/dL (70-99); Osmolality,Calculated 281 (280-300); Potassium 3.3 mEq/L (3.5-4.5); Sodium 134 mEq/L (136-145); eGFR For African Americans > 60 (> 60); eGFR For Non-African Americans > 60 (> 60)
[2017-06-07 18:35] LABS: C.difficile Toxin A/B by PCR Not detected (Not detect); Campylobacter by PCR Not detected (Not detect); Cryptosporidium by PCR Not detected (Not detect); Cyclospora cayetanensis PCR Not detected (Not detect); E. coli O157 by PCR Not detected (Not detect); Entamoeba histolytica PCR Not detected (Not detect); Enteroaggregative E.coli(EAEC) Not detected (Not detect); Enteropathogenic E.coli(EPEC) Not detected (Not detect); Enterotoxigenic E.coli (ETEC) Not detected (Not detect); Giardia lamblia PCR Not detected (Not detect); Plesiomonas shigelloides PCR Not detected (Not detect); Salmonella PCR Not detected (Not detect); Shig/EnteroinvasiveE coli EIEC Not detected (Not detect); Shigalike tox-prod E coli STEC Not detected (Not detect); Vibrio PCR Not detected (Not detect); Vibrio cholerae PCR Not detected (Not detect); Yersinia enterocolitica PCR Not detected (Not detect)
[2017-06-07 18:36] LABS: Adenovirus F 40/41 PCR Not detected (Not detect); Astrovirus PCR Not detected (Not detect); Norovirus GI/GII PCR Not detected (Not detect); Rotavirus A PCR Not detected (Not detect); Sapovirus PCR Not detected (Not detect)
[2017-06-08] MEDS: Nystatin OINT 15 GM TUBE TP SCH ×5 (00:02→21:27)
[2017-06-08 03:59] LABS: Basophils % 0.3 %; Hematocrit 26.5 % (35.3-44.9); Hemoglobin 8.5 g/dL (11.5-15.4); Immature Granulocytes % 1.4 % (0-4); Lymphocytes # 1.2 K/mcL (0.6-4.6); Lymphocytes % 39.7 %; Mean Corpuscular HGB Conc 32.1 g/dL (31.6-35.5); Mean Corpuscular Hemoglobin 25.2 pg (28.0-33.3); Mean Corpuscular Volume 78.6 fL (83.0-100.0); Mean Platelet Volume 9.3 fL (9.4-12.4); Monocytes # 0.7 K/mcL (0.0-1.3); Neutrophils # 1.1 K/mcL (1.6-8.9); Platelet Count 226 K/mcL (140-400); Red Blood Count 3.37 M/mcL (3.82-4.97); Red Cell Distribution Width 14.4 % (11.5-14.5); Segmented Neutrophils % 35.6 %
[2017-06-08 04:12] LABS: BUN/Creatinine Ratio 8 (6-26); Calcium 7.4 mg/dL (8.6-10.8); Carbon Dioxide 21 mEq/L (19-29); Chloride 110 mEq/L (98-109); Glucose 166 mg/dL (70-99); Magnesium 1.1 mg/dL (1.6-2.6); Osmolality,Calculated 285 (280-300); Potassium 3.2 mEq/L (3.5-4.5); Sodium 137 mEq/L (136-145); eGFR For African Americans > 60 (> 60); eGFR For Non-African Americans > 60 (> 60)
[2017-06-08 04:13] LABS: Blood Urea Nitrogen 5 mg/dL (7-20)
[2017-06-08 04:18] LABS: Platelet Estimate Normal (Normal)
[2017-06-08] MEDS ORDERED: Magnesium Sulfate 2 GM in D5% in Water 100 ML IVPB ONE ×2 (05:56→07:36)
[2017-06-08] MEDS ORDERED: Potassium Chloride Elixir 20 MEQ/15 ML UDC PO ONE (07:35)
[2017-06-08] MEDS: Insulin LISPRO 300 UNITS/3 ML VIAL SQ SCH ×4 (08:40→21:29)
[2017-06-08] MEDS: amLODIPine 5 MG TABLET PO SCH (08:41)
[2017-06-08] MEDS: Magnesium Oxide 400 MG TABLET PO SCH ×2 (08:42→21:28)
[2017-06-08] MEDS: Pantoprazole 40 MG VIAL IVP SCH ×2 (08:43→21:28)
[2017-06-08] MEDS: (Ezetimibe [Zetia] 10 MG) PO SCH (08:44)
--- NOTE | 2017-06-08 10:09 | Internal Med Progress Note ---
<Brady Ribera - Last Filed: 06/08/17 10:56> Date of Encounter: 06/08/17 Time of Encounter: 10:06 - Assessment and plan (1) Diarrhea Current Visit: Yes Status: Acute Assessment and plan: Acute diarrhea for 8 days that has been watery and multiple times a day. C diff culture was negative earlier this week likely chemotherapy related diarrhea as GI panel is negative. Patient has a history of colon cancer with metastases deliver. Followed by Dr. Rodriguez Recent chemotherapy treatment may be the cause of the current nausea vomiting and diarrhea. Denies melena, abdominal pain, fever, chills. Patient is hemodynamically stable. CT of the abdomen/pelvis shows central hepatic mass measuring approximately 5.8 x 4.7 cm in size. Seen better on prior study. Associated intra-hepatic biliary ductal dilatation. Findings highly suspicious for cholangiocarcinoma MRCP showed 5.1cmx5.8cm mass centered in hepatic segments suggesting hepatocellular carcinoma. no other liver lesions identified. no findings of cirhosis. Plan: Appreciate GI and onc recs will continue to monitor electrolytes monitor I&O Qualifiers: Diarrhea type: unspecified type Qualified Code(s): R19.7 - Diarrhea, unspecified (2) Dehydration Current Visit: Yes Status: Acute Assessment and plan: Acute dehydration probably due to nausea and vomiting. Plan: IV hydration, replace electrolytes. (3) Electrolyte imbalance Current Visit: Yes Status: Acute Assessment and plan: supplement as needed. (4) Heme positive stool Current Visit: Yes Status: Acute Assessment and plan: Fecal heme occult was positive maybe due to history of colon cancer with mets to the liver hemoglobin has decreased in this today 9.2. Formally 11.2 at admission yesterday patient denies dizziness, weakness, melena -Consult G.I. -consult ONc -will continue to monitor H&H (5) History of colon cancer Current Visit: Yes Status: Chronic Assessment and plan: Patient has a history of colon cancer with metastases deliver. Followed by Dr. Rodriguez Recent chemotherapy treatment 8 days ago and may be the cause of the current nausea vomiting and diarrhea. -CT of the abdomen/pelvis today shows central hepatic mass measuring approximately 5.8 x 4.7 cm in size. Associated intra-hepatic biliary ductal dilatation. Findings highly suspicious for cholangiocarcinoma -metastatic disease is on the differential. s/p two cycles of FOLFOX. Plan: plan for outpatient follow up with Dr. Rodriguez upon discharge. appreciate oncology recs. (6) HTN (hypertension) Current Visit: Yes Status: Chronic Assessment and plan: Patient has history of hypertension continue home medications of amlodipine and lisinopril Qualifiers: Hypertension type: essential hypertension Qualified Code(s): I10 - Essential (primary) hypertension (7) HLD (hyperlipidemia) Current Visit: Yes Status: Chronic Assessment and plan: Patient has a history of hyperlipidemia will continue home medication atorvastatin Qualifiers: Hyperlipidemia type: pure hypercholesterolemia Qualified Code(s): E78.00 - Pure hypercholesterolemia, unspecified; E78.0 - Pure hypercholesterolemia (8) CAD (coronary artery disease) Current Visit: Yes Status: Chronic Assessment and plan: Patient has a history of CAD -Will continue patient's norvasc, lisinopril, Lipitor, and Zetia -Will hold PO aspirin d/t current bleeding of unknown source and postive fecal hemoccult Qualifiers: Coronary Disease-Associated Artery/Lesion type: unspecified vessel or lesion type [place] vs. transplanted heart: [place] heart Associated angina: angina presence unspecified Qualified Code(s): I25.10 - Atherosclerotic heart disease of [place] coronary artery without angina pectoris (9) Diabetes Current Visit: Yes Status: Chronic Assessment and plan: Patient has a history of diabetes is on low-dose sliding scale insulin ACHS accuchecks ADA diet sugars well controlled at this time. Qualifiers: Diabetes mellitus type: type 2 Diabetes mellitus complication status: with unspecified complications Diabetes mellitus railroad passenger agent insulin use: with mcc use Qualified Code(s): E11.8 - Type 2 diabetes mellitus with unspecified complications; Z79.4 - [facility] (current) use of insulin (10) DVT prophylaxis Current Visit: Yes Status: Acute Assessment and plan: Bilateral SCDs on patient's LEs for DVT prophylaxis Pharmacologic DVT prophylaxis contraindicated due to patient's current bleeding of unknown source - Subjective Interval history: 72 F evaluated at bedside. patient denies nausea, vomiting, fever. she admits to chills. she had several episodes of diarrhea yesterday, but her only episode of diarrhea today was at 1am. she denies any further issues. - Constitutional Vitals: Temp Pulse Resp BP Pulse Ox 97.7 F 75 16 126/73 96 06/08/17 07:30 06/08/17 07:30 06/08/17 07:30 06/08/17 07:30 06/08/17 07:30 General appearance: Present: cooperative, mild distress, A&O X 3, pleasant, obese, answers questions appropriately - Head Head exam: Present: atraumatic, normocephalic - Neck Neck exam general surgery: Present: supple, trachea midline - Respiratory Respiratory exam: Present: CTAB - Cardiovascular Additional comments: +2/6 systolic murmur heard best at the left upper sternal border. - GI/Abdominal GI/Abdominal exam: Present: normal bowel sounds, soft. Absent: distended, tenderness - Extremities Exam Extremities exam: Absent: cyanotic, pedal edema - Neurological Exam Neurological exam: Present: alert, oriented X3, no focal deficits - Psychiatric Psychiatric exam: Present: normal affect, normal mood - Skin Skin exam: Present: intact Internal Medicine: Result - Labs CBC & Chem 7: 06/08/17 Unknown 06/08/17 Unknown Labs: Short CBC 06/08/17 Range/Units Unknown WBC 3.0 L (4.3-11.1) K/mcL Hgb 8.5 L (11.5-15.4) g/dL Hct 26.5 L (35.3-44.9) % Plt Count 226 (140-400) K/mcL Neutrophils # 1.1 L (1.6-8.9) K/mcL BMP 06/07/17 06/08/17 16:40 Unknown Sodium 134 L 137 Potassium 3.3 L 3.2 L Chloride 107 110 H Carbon Dioxide 21 21 BUN 8 5 L Creatinine 0.65 0.64 Glucose 184 H 166 H Calcium 7.7 L 7.4 L - ABG Interpretation ABG results: PT/INR, D-dimer PT 17.1 Seconds (9.4-12.1) H 06/07/17 05:19 - Impressions Impressions Abdomen MRI 06/07/17 11:30 IMPRESSION: 1. 5.1 cm x 5.2 cm x 5.8 cm mass centered in hepatic segments 4a and 8 and demonstrating features most suggestive of hepatocellular carcinoma. No other liver lesions are identified. Of note, there are no findings of cirrhosis. Please refer to the biopsy results for further detail. 2. No significant opacification of the middle hepatic vein, central portions of the right and left hepatic veins, and retrohepatic and suprahepatic portions of the inferior vena cava, most likely due to mass effect from the liver mass. There are no definite findings suggesting venous tumor extension. D/ / Denis Faye MD / Denis Faye MD Interpreting Provider: Denis Faye MD - VTE Documentation of Mechanical Device: Intermittent pneumatic compression device Consult Discharge Plan - Plan Referrals: Arin Ventura CNP [Primary Care Provider] - <ChhayavitorlucinaAlcides Conteh - Last Filed: 06/08/17 13:29> Date of Encounter: 06/08/17 - Constitutional Vitals: Temp Pulse Resp BP Pulse Ox 97.6 F 84 16 134/83 100 06/08/17 10:38 06/08/17 10:38 06/08/17 10:38 06/08/17 10:38 06/08/17 10:38 Internal Medicine: Result - Labs CBC & Chem 7: 06/08/17 Unknown 06/08/17 Unknown Labs: Short CBC 06/08/17 Range/Units Unknown WBC 3.0 L (4.3-11.1) K/mcL Hgb 8.5 L (11.5-15.4) g/dL Hct 26.5 L (35.3-44.9) % Plt Count 226 (140-400) K/mcL Neutrophils # 1.1 L (1.6-8.9) K/mcL BMP 06/07/17 06/08/17 16:40 Unknown Sodium 134 L 137 Potassium 3.3 L 3.2 L Chloride 107 110 H Carbon Dioxide 21 21 BUN 8 5 L Creatinine 0.65 0.64 Glucose 184 H 166 H Calcium 7.7 L 7.4 L - ABG Interpretation ABG results: PT/INR, D-dimer PT 17.1 Seconds (9.4-12.1) H 06/07/17 05:19 - Impressions Impressions Abdomen MRI 06/07/17 11:30 IMPRESSION: 1. 5.1 cm x 5.2 cm x 5.8 cm mass centered in hepatic segments 4a and 8 and demonstrating features most suggestive of hepatocellular carcinoma. No other liver lesions are identified. Of note, there are no findings of cirrhosis. Please refer to the biopsy results for further detail. 2. No significant opacification of the middle hepatic vein, central portions of the right and left hepatic veins, and retrohepatic and suprahepatic portions of the inferior vena cava, most likely due to mass effect from the liver mass. There are no definite findings suggesting venous tumor extension. D/ / Denis Faye MD / Denis Faye MD Interpreting Provider: Denis Faye MD - Attending Attestation Acute blood loss anemia possible GI bleed upper versus lower Continue Protonix IV, monitor CBC and transfuse as needed Not actively bleeding, consider surgery consult if needed GI consulted Severe dehydration due to Acute diarrhea likely related to chemotherapy /FOLFOX , stable I examined this patient and my medical decision-making was reviewed with the Resident Physician. I agree with the documented findings, disposition and treatment plan as described except to the extent set forth below.
[2017-06-08 21:45] LABS: Hematocrit 28.8 % (35.3-44.9); Hemoglobin 9.3 g/dL (11.5-15.4)
[2017-06-09 04:38] LABS: Basophils % 1.1 %; Eosinophils % 0.7 %; Hematocrit 27.3 % (35.3-44.9); Hemoglobin 8.6 g/dL (11.5-15.4); Immature Granulocytes % 1.1 % (0-4); Lymphocytes # 1.2 K/mcL (0.6-4.6); Lymphocytes % 46.1 %; Mean Corpuscular HGB Conc 31.5 g/dL (31.6-35.5); Mean Corpuscular Hemoglobin 25.1 pg (28.0-33.3); Mean Corpuscular Volume 79.6 fL (83.0-100.0); Mean Platelet Volume 9.4 fL (9.4-12.4); Monocytes # 0.5 K/mcL (0.0-1.3); Monocytes % 19.7 %; Nucleated Red Blood Cells 1.1 /100 WBC (0); Platelet Count 255 K/mcL (140-400); Red Blood Count 3.43 M/mcL (3.82-4.97); Red Cell Distribution Width 14.6 % (11.5-14.5); Segmented Neutrophils % 31.3 %
[2017-06-09 04:39] LABS: Neutrophils # 0.9 K/mcL (1.6-8.9)
[2017-06-09 04:54] LABS: BUN/Creatinine Ratio 5 (6-26); Blood Urea Nitrogen 3 mg/dL (7-20); Calcium 7.6 mg/dL (8.6-10.8); Carbon Dioxide 25 mEq/L (19-29); Chloride 109 mEq/L (98-109); Glucose 136 mg/dL (70-99); Magnesium 1.3 mg/dL (1.6-2.6); Osmolality,Calculated 283 (280-300); Potassium 3.6 mEq/L (3.5-4.5); Sodium 137 mEq/L (136-145); eGFR For African Americans > 60 (> 60); eGFR For Non-African Americans > 60 (> 60)
[2017-06-09 04:56] LABS: Platelet Estimate Normal (Normal)
[2017-06-09] MEDS ORDERED: Magnesium Sulfate 2 GM in D5% in Water 100 ML IVPB ONE (07:36)
[2017-06-09] MEDS: Nystatin OINT 15 GM TUBE TP SCH ×3 (08:45→18:13)
[2017-06-09] MEDS: Magnesium Oxide 400 MG TABLET PO SCH ×2 (09:21→20:43)
[2017-06-09] MEDS: amLODIPine 5 MG TABLET PO SCH (09:21)
[2017-06-09] MEDS: Pantoprazole 40 MG VIAL IVP SCH ×2 (09:21→20:43)
[2017-06-09] MEDS: Insulin LISPRO 300 UNITS/3 ML VIAL SQ SCH ×4 (09:22→21:10)
[2017-06-09] MEDS: (Ezetimibe [Zetia] 10 MG) PO SCH (09:23)
--- NOTE | 2017-06-09 11:03 | Internal Med Progress Note ---
<Brady Ribera - Last Filed: 06/09/17 11:01> Date of Encounter: 06/09/17 Time of Encounter: 11:01 - Assessment and plan (1) Diarrhea Current Visit: Yes Status: Acute Assessment and plan: Acute diarrhea for 8 days that has been watery and multiple times a day. C diff culture was negative earlier this week likely chemotherapy related diarrhea as GI panel is negative. Patient has a history of colon cancer with metastases deliver. Followed by Dr. Rodriguez Recent chemotherapy treatment may be the cause of the current nausea vomiting and diarrhea. Denies melena, abdominal pain, fever, chills. Patient is hemodynamically stable. CT of the abdomen/pelvis shows central hepatic mass measuring approximately 5.8 x 4.7 cm in size. Seen better on prior study. Associated intra-hepatic biliary ductal dilatation. Findings highly suspicious for cholangiocarcinoma MRCP showed 5.1cmx5.8cm mass centered in hepatic segments suggesting hepatocellular carcinoma. no other liver lesions identified. no findings of cirrhosis. Plan: Appreciate GI and onc recs will continue to monitor electrolytes monitor I&O NPO midnight for possible scope in the morning. will call GI in the morning. Qualifiers: Diarrhea type: unspecified type Qualified Code(s): R19.7 - Diarrhea, unspecified (2) Dehydration Current Visit: Yes Status: Acute Assessment and plan: Acute dehydration probably due to nausea and vomiting. Plan: IV hydration, replace electrolytes. (3) Electrolyte imbalance Current Visit: Yes Status: Acute Assessment and plan: supplement as needed. (4) Heme positive stool Current Visit: Yes Status: Acute Assessment and plan: Fecal heme occult was positive maybe due to history of colon cancer with mets to the liver hemoglobin has decreased to 8.6 today. Formally 11.2 at admission yesterday patient denies dizziness, weakness, melena -Consult G.I. -consult ONc -will continue to monitor H&H (5) History of colon cancer Current Visit: Yes Status: Chronic Assessment and plan: Patient has a history of colon cancer with metastases to liver Followed by Dr. Rodriguez Recent chemotherapy treatment 8 days ago and may be the cause of the current nausea vomiting and diarrhea. -CT of the abdomen/pelvis today shows central hepatic mass measuring approximately 5.8 x 4.7 cm in size. Associated intra-hepatic biliary ductal dilatation. -metastatic disease is on the differential. s/p two cycles of FOLFOX. Plan: plan for outpatient follow up with Dr. Rodriguez upon discharge. appreciate oncology recs. (6) HTN (hypertension) Current Visit: Yes Status: Chronic Assessment and plan: Patient has history of hypertension continue home medications of amlodipine and lisinopril Qualifiers: Hypertension type: essential hypertension Qualified Code(s): I10 - Essential (primary) hypertension (7) HLD (hyperlipidemia) Current Visit: Yes Status: Chronic Assessment and plan: Patient has a history of hyperlipidemia will continue home medication atorvastatin Qualifiers: Hyperlipidemia type: pure hypercholesterolemia Qualified Code(s): E78.00 - Pure hypercholesterolemia, unspecified; E78.0 - Pure hypercholesterolemia (8) CAD (coronary artery disease) Current Visit: Yes Status: Chronic Assessment and plan: Patient has a history of CAD -Will continue patient's home meds -Will hold PO aspirin d/t current bleeding of unknown source and postive fecal hemoccult Qualifiers: Coronary Disease-Associated Artery/Lesion type: unspecified vessel or lesion type [place] vs. transplanted heart: [place] heart Associated angina: angina presence unspecified Qualified Code(s): I25.10 - Atherosclerotic heart disease of [place] coronary artery without angina pectoris (9) Diabetes Current Visit: Yes Status: Chronic Assessment and plan: Patient has a history of diabetes is on low-dose sliding scale insulin ACHS accuchecks ADA diet sugars well controlled at this time. Qualifiers: Diabetes mellitus type: type 2 Diabetes mellitus complication status: with unspecified complications Diabetes mellitus detention insulin use: with technician terminal and repeater use Qualified Code(s): E11.8 - Type 2 diabetes mellitus with unspecified complications; Z79.4 - [facility] (current) use of insulin (10) DVT prophylaxis Current Visit: Yes Status: Acute Assessment and plan: Bilateral SCDs on patient's LEs for DVT prophylaxis Pharmacologic DVT prophylaxis contraindicated due to patient's current bleeding of unknown source - Subjective Interval history: 72 F evaluated at bedside. patient denies nausea, vomiting, fever, chills. she says she has had about 5-6 episodes of diarrhea yesterday and had about four episodes of diarrhea today so far. she is asking if she would be able to take some more immodium today to help with her diarrhea. she denies any further new complaints today. - Constitutional Vitals: Temp Pulse Resp BP Pulse Ox 98.1 F 86 14 143/82 97 06/09/17 07:25 06/09/17 07:25 06/09/17 07:25 06/09/17 07:25 06/09/17 07:25 General appearance: Present: cooperative, mild distress, A&O X 3, pleasant, obese, answers questions appropriately - Head Head exam: Present: atraumatic, normocephalic - Neck Neck exam general surgery: Present: supple, trachea midline - Respiratory Respiratory exam: Present: CTAB - Cardiovascular Cardiovascular exam: Present: RRR, +S1, +S2 Additional comments: +2/6 systolic murmur noted. - GI/Abdominal GI/Abdominal exam: Present: normal bowel sounds, soft. Absent: distended, tenderness - Extremities Exam Extremities exam: Absent: cyanotic, pedal edema - Neurological Exam Neurological exam: Present: alert, oriented X3, no focal deficits - Skin Skin exam: Present: intact Internal Medicine: Result - Labs CBC & Chem 7: 06/09/17 03:49 06/09/17 03:49 Labs: Short CBC 06/08/17 06/09/17 Range/Units 21:10 03:49 WBC 2.7 L (4.3-11.1) K/mcL Hgb 9.3 L 8.6 L (11.5-15.4) g/dL Hct 28.8 L 27.3 L (35.3-44.9) % Plt Count 255 (140-400) K/mcL Neutrophils # 0.9 L (1.6-8.9) K/mcL BMP 06/09/17 03:49 Sodium 137 Potassium 3.6 Chloride 109 Carbon Dioxide 25 BUN 3 L Creatinine 0.59 Glucose 136 H Calcium 7.6 L - ABG Interpretation ABG results: PT/INR, D-dimer PT 17.1 Seconds (9.4-12.1) H 06/07/17 05:19 - VTE Documentation of Mechanical Device: Intermittent pneumatic compression device Consult Discharge Plan - Plan Referrals: Arin Ventura CNP [Primary Care Provider] - <Alcides Foster - Last Filed: 06/09/17 12:41> Date of Encounter: 06/09/17 - Constitutional Vitals: Temp Pulse Resp BP Pulse Ox 98.1 F 86 14 143/82 97 06/09/17 07:25 06/09/17 07:25 06/09/17 07:25 06/09/17 07:25 06/09/17 07:25 Internal Medicine: Result - Labs CBC & Chem 7: 06/09/17 03:49 06/09/17 03:49 Labs: Short CBC 06/08/17 06/09/17 Range/Units 21:10 03:49 WBC 2.7 L (4.3-11.1) K/mcL Hgb 9.3 L 8.6 L (11.5-15.4) g/dL Hct 28.8 L 27.3 L (35.3-44.9) % Plt Count 255 (140-400) K/mcL Neutrophils # 0.9 L (1.6-8.9) K/mcL BMP 06/09/17 03:49 Sodium 137 Potassium 3.6 Chloride 109 Carbon Dioxide 25 BUN 3 L Creatinine 0.59 Glucose 136 H Calcium 7.6 L - ABG Interpretation ABG results: PT/INR, D-dimer PT 17.1 Seconds (9.4-12.1) H 06/07/17 05:19 - Attending Attestation GI recommendations appreciated. Imodium PRN I examined this patient and my medical decision-making was reviewed with the Resident Physician. I agree with the documented findings, disposition and treatment plan as described except to the extent set forth below.
[2017-06-09 19:13] LABS: Basophils % 0.3 %; Hematocrit 28.7 % (35.3-44.9); Immature Granulocytes % 2.3 % (0-4); Immature Platelets 1.5 % (1.1-6.1); Lymphocytes # 1.4 K/mcL (0.6-4.6); Lymphocytes % 45.5 %; Mean Corpuscular HGB Conc 31.4 g/dL (31.6-35.5); Mean Corpuscular Hemoglobin 25.1 pg (28.0-33.3); Mean Corpuscular Volume 79.9 fL (83.0-100.0); Monocytes # 0.6 K/mcL (0.0-1.3); Monocytes % 19.5 %; Platelet Count 293 K/mcL (140-400); Red Blood Count 3.59 M/mcL (3.82-4.97); Red Cell Distribution Width 14.8 % (11.5-14.5); Segmented Neutrophils % 31.4 %
[2017-06-09 19:16] LABS: Neutrophils # 0.9 K/mcL (1.6-8.9)
[2017-06-09 19:31] LABS: Platelet Estimate Normal (Normal)
[2017-06-09 19:32] LABS: Anisocytosis 1+ (Not Present); Polychromasia 1+ (Not Present)
[2017-06-10] MEDS: Nystatin OINT 15 GM TUBE TP SCH ×3 (00:53→13:16)
[2017-06-10 05:37] LABS: Basophils % 0.9 %; Eosinophils % 1.3 %; Hematocrit 28.1 % (35.3-44.9); Hemoglobin 9.1 g/dL (11.5-15.4); Immature Granulocytes % 3.4 % (0-4); Lymphocytes # 1.3 K/mcL (0.6-4.6); Lymphocytes % 40.8 %; Mean Corpuscular HGB Conc 32.4 g/dL (31.6-35.5); Mean Corpuscular Hemoglobin 25.7 pg (28.0-33.3); Mean Corpuscular Volume 79.4 fL (83.0-100.0); Mean Platelet Volume 9.5 fL (9.4-12.4); Monocytes # 0.6 K/mcL (0.0-1.3); Monocytes % 17.9 %; Neutrophils # 1.1 K/mcL (1.6-8.9); Platelet Count 250 K/mcL (140-400); Red Blood Count 3.54 M/mcL (3.82-4.97); Segmented Neutrophils % 35.7 %
[2017-06-10 05:51] LABS: BUN/Creatinine Ratio 9 (6-26); Calcium 7.8 mg/dL (8.6-10.8); Carbon Dioxide 23 mEq/L (19-29); Chloride 107 mEq/L (98-109); Glucose 162 mg/dL (70-99); Magnesium 1.2 mg/dL (1.6-2.6); Osmolality,Calculated 285 (280-300); Potassium 3.4 mEq/L (3.5-4.5); Sodium 137 mEq/L (136-145); eGFR For African Americans > 60 (> 60); eGFR For Non-African Americans > 60 (> 60)
[2017-06-10 05:52] LABS: Blood Urea Nitrogen 5 mg/dL (7-20)
[2017-06-10] MEDS: Magnesium Oxide 400 MG TABLET PO SCH (08:33)
[2017-06-10] MEDS: Insulin LISPRO 300 UNITS/3 ML VIAL SQ SCH ×2 (08:34→11:16)
[2017-06-10] MEDS: amLODIPine 5 MG TABLET PO SCH (08:34)
[2017-06-10] MEDS: (Ezetimibe [Zetia] 10 MG) PO SCH (08:46)
[2017-06-10] MEDS: Pantoprazole 40 MG VIAL IVP SCH (08:46)
--- NOTE | 2017-06-10 09:39 | Internal Med Progress Note ---
<Ernestina Taylor - Last Filed: 06/10/17 10:25> Date of Encounter: 06/10/17 Time of Encounter: 09:40 - Assessment and plan (1) Diarrhea Current Visit: Yes Status: Acute Assessment and plan: Acute diarrhea for 8 days that has been watery and multiple times a day. C diff culture was negative earlier this week likely chemotherapy related diarrhea as GI panel is negative. Patient has a history of colon cancer with metastases deliver. Followed by Dr. Rodriguez Denies melena, abdominal pain, fever, chills, nausea, vomiting CT of the abdomen/pelvis shows central hepatic mass measuring approximately 5.8 x 4.7 cm in size. Seen better on prior study. Associated intra-hepatic biliary ductal dilatation. Findings highly suspicious for cholangiocarcinoma MRCP showed 5.1cmx5.8cm mass centered in hepatic segments suggesting hepatocellular carcinoma. no other liver lesions identified. no findings of cirrhosis. Plan: Appreciate GI and onc recommendations add Imodium 2mg BID to improve diarrhea and dehydration will continue to monitor electrolytes monitor I&O NPO for possible scope today by GI Qualifiers: Diarrhea type: unspecified type Qualified Code(s): R19.7 - Diarrhea, unspecified (2) Dehydration Current Visit: Yes Status: Acute Assessment and plan: Acute dehydration probably due to nausea and vomiting. Plan: add Imodium 2 mg BID continue Imodium 2mg PRN hold IV fluids replace electrolytes. (3) Electrolyte imbalance Current Visit: Yes Status: Acute Assessment and plan: Low potassium and magnesium supplement as needed. (4) Heme positive stool Current Visit: Yes Status: Acute Assessment and plan: Fecal heme occult was positive maybe due to history of colon cancer with mets to the liver hemoglobin has decreased to 9.1 today. Formally 11.2 at admission yesterday patient denies dizziness, weakness, melena -Consult G.I. -consult ONC -will continue to monitor H&H (5) History of colon cancer Current Visit: Yes Status: Chronic Assessment and plan: Patient has a history of colon cancer with metastases to liver Followed by Dr. Rodriguez Recent chemotherapy treatment 8 days ago and may be the cause of the current nausea vomiting and diarrhea. -CT of the abdomen/pelvis today shows central hepatic mass measuring approximately 5.8 x 4.7 cm in size. Associated intra-hepatic biliary ductal dilatation. -metastatic disease is on the differential. s/p two cycles of FOLFOX. Plan: plan for outpatient follow up with Dr. Rodriguez upon discharge. appreciate oncology recs. (6) HTN (hypertension) Current Visit: Yes Status: Chronic Assessment and plan: Patient has history of hypertension continue home medications of amlodipine and lisinopril Qualifiers: Hypertension type: essential hypertension Qualified Code(s): I10 - Essential (primary) hypertension (7) HLD (hyperlipidemia) Current Visit: Yes Status: Chronic Assessment and plan: Patient has a history of hyperlipidemia will continue home medication atorvastatin Qualifiers: Hyperlipidemia type: pure hypercholesterolemia Qualified Code(s): E78.00 - Pure hypercholesterolemia, unspecified; E78.0 - Pure hypercholesterolemia (8) CAD (coronary artery disease) Current Visit: Yes Status: Chronic Assessment and plan: Patient has a history of CAD -Will continue patient's home meds -Will hold PO aspirin d/t current bleeding of unknown source and postive fecal hemoccult Qualifiers: Coronary Disease-Associated Artery/Lesion type: unspecified vessel or lesion type [place] vs. transplanted heart: [place] heart Associated angina: angina presence unspecified Qualified Code(s): I25.10 - Atherosclerotic heart disease of [place] coronary artery without angina pectoris (9) Diabetes Current Visit: Yes Status: Chronic Assessment and plan: Patient has a history of diabetes is on low-dose sliding scale insulin ACHS accuchecks ADA diet sugars well controlled at this time. Qualifiers: Diabetes mellitus type: type 2 Diabetes mellitus complication status: with unspecified complications Diabetes mellitus terminal clerk insulin use: with skilled nursing use Qualified Code(s): E11.8 - Type 2 diabetes mellitus with unspecified complications; Z79.4 - terminal operations manager (current) use of insulin (10) DVT prophylaxis Current Visit: Yes Status: Acute Assessment and plan: Bilateral SCDs on patient's LEs for DVT prophylaxis Pharmacologic DVT prophylaxis contraindicated due to patient's current bleeding of unknown source - Subjective Interval history: Patient sitting comfortably in bed finishing with physical rehab. She stated that she is still having the same amount of bowel movements which is at least 8 per day, loose runny stools. She denies melena, abdominal pain, chest pain, shortness of breath, nausea, vomiting - Constitutional Vitals: Temp Pulse Resp BP Pulse Ox 98.1 F 78 18 118/67 94 06/10/17 07:05 06/10/17 07:05 06/10/17 07:05 06/10/17 07:05 06/10/17 07:05 General appearance: Present: cooperative, mild distress, A&O X 3, pleasant, obese, answers questions appropriately Exam: Gen.: Vitals noted. No acute distress. AAOx3 HEENT: oropharynx clear, Normocephalic, atraumatic Neck: Supple. No adenopathy. Cardiac: RRR, systolic murmur, no rubs her gallops Pulmonary: CTA bilaterally, no wheezes, rales or rhonchi, equal chest expansion Abdomen: soft, nontender, Bowel sounds noted, no guarding Extremities: no BLE edema, nontender calf, no cyanosis or clubbing Neuro: A&Ox3, moves all extremities, no focal deficits Psych: Appropriate mood and behavior Internal Medicine: Result - Labs CBC & Chem 7: 06/10/17 05:02 06/10/17 05:02 Labs: Short CBC 06/09/17 06/10/17 Range/Units 19:05 05:02 WBC 3.0 L 3.2 L (4.3-11.1) K/mcL Hgb 9.0 L 9.1 L (11.5-15.4) g/dL Hct 28.7 L 28.1 L (35.3-44.9) % Plt Count 293 250 (140-400) K/mcL Neutrophils # 0.9 L 1.1 L (1.6-8.9) K/mcL BMP 06/10/17 05:02 Sodium 137 Potassium 3.4 L Chloride 107 Carbon Dioxide 23 BUN 5 L Creatinine 0.53 L Glucose 162 H Calcium 7.8 L - ABG Interpretation ABG results: PT/INR, D-dimer PT 17.1 Seconds (9.4-12.1) H 06/07/17 05:19 - VTE Documentation of Mechanical Device: Intermittent pneumatic compression device Consult Discharge Plan - Plan Referrals: Arin Ventura CNP [Primary Care Provider] - <Alcides Foster - Last Filed: 06/10/17 11:45> Date of Encounter: 06/10/17 - Constitutional Vitals: Temp Pulse Resp BP Pulse Ox 98.4 F 79 18 137/79 98 06/10/17 10:57 06/10/17 10:57 06/10/17 10:57 06/10/17 10:57 06/10/17 10:57 Internal Medicine: Result - Labs CBC & Chem 7: 06/10/17 05:02 06/10/17 05:02 Labs: Short CBC 06/09/17 06/10/17 Range/Units 19:05 05:02 WBC 3.0 L 3.2 L (4.3-11.1) K/mcL Hgb 9.0 L 9.1 L (11.5-15.4) g/dL Hct 28.7 L 28.1 L (35.3-44.9) % Plt Count 293 250 (140-400) K/mcL Neutrophils # 0.9 L 1.1 L (1.6-8.9) K/mcL BMP 06/10/17 05:02 Sodium 137 Potassium 3.4 L Chloride 107 Carbon Dioxide 23 BUN 5 L Creatinine 0.53 L Glucose 162 H Calcium 7.8 L - ABG Interpretation ABG results: PT/INR, D-dimer PT 17.1 Seconds (9.4-12.1) H 06/07/17 05:19 - Attending Attestation continue imodium 2 mg BID plus PRN doses GI recommendations appreciated I examined this patient and my medical decision-making was reviewed with the Resident Physician. I agree with the documented findings, disposition and treatment plan as described except to the extent set forth below.
[2017-06-10] MEDS ORDERED: Potassium Chloride Elixir 20 MEQ/15 ML UDC PO ONE (11:02)
[2017-06-10] MEDS ORDERED: Magnesium Sulfate 2 GM in D5% in Water 100 ML IVPB ONE (11:02)
[2017-06-10 11:05] VITALS: BP 137/79
--- NOTE | 2017-06-10 13:58 | Discharge Summary ---
<Ernestina Taylor - Last Filed: 06/10/17 14:25> Date of Encounter: 06/10/17 Time of Encounter: 13:56 - Discharge Diagnosis (1) Diarrhea Priority: Primary Status: Acute Qualifiers: Diarrhea type: unspecified type Qualified Code(s): R19.7 - Diarrhea, unspecified (2) Dehydration Priority: Secondary Status: Acute (3) Electrolyte imbalance Priority: Secondary Status: Acute (4) Heme positive stool Priority: Secondary Status: Acute (5) History of colon cancer Priority: Secondary Status: Chronic (6) HTN (hypertension) Priority: Secondary Status: Chronic Qualifiers: Hypertension type: essential hypertension Qualified Code(s): I10 - Essential (primary) hypertension (7) HLD (hyperlipidemia) Priority: Secondary Status: Chronic Qualifiers: Hyperlipidemia type: pure hypercholesterolemia Qualified Code(s): E78.00 - Pure hypercholesterolemia, unspecified; E78.0 - Pure hypercholesterolemia (8) CAD (coronary artery disease) Priority: Secondary Status: Chronic Qualifiers: Coronary Disease-Associated Artery/Lesion type: unspecified vessel or lesion type [place] vs. transplanted heart: tribe heart Associated angina: angina presence unspecified Qualified Code(s): I25.10 - Atherosclerotic heart disease of tribe coronary artery without angina pectoris (9) Diabetes Priority: Secondary Status: Chronic Qualifiers: Diabetes mellitus type: type 2 Diabetes mellitus complication status: with unspecified complications Diabetes mellitus local intermodal truck driver insulin use: with local intermodal truck driver use Qualified Code(s): E11.8 - Type 2 diabetes mellitus with unspecified complications; Z79.4 - detention (current) use of insulin (10) DVT prophylaxis Priority: Secondary Status: Acute - Discharge Medications Prescriptions: Loperamide [Imodium] 2 mg PO Q4HR PRN 3 Days #24 capsule PRN Reason: Diarrhea Loperamide [Imodium] 2 mg PO BID 7 Days #14 capsule Magnesium Oxide [Mag-Ox] 400 mg PO BID 7 Days #14 tablet Home Medications: Aspirin [Adult Low Dose Aspirin EC] 81 mg PO DAILY 10/28/15 [History] Atorvastatin [Lipitor] 40 mg PO HS 10/28/15 [History] Ezetimibe [Zetia] 10 mg PO DAILY 10/28/15 [History] Insulin Glargine,Hum.rec.anlog [Lantus Solostar] 24 unit SQ HS 10/28/15 [History ] Lisinopril [Zestril] 10 mg PO DAILY 10/28/15 [History] amLODIPine [Norvasc] 2.5 mg PO DAILY 10/28/15 [History] Amitriptyline HCl 75 mg PO DAILY 04/24/17 [History] Docusate Sodium [Dok] 100 mg PO DAILY 04/24/17 [History] Escitalopram [Lexapro] 20 mg PO DAILY 04/24/17 [History] GlipiZIDE [Glipizide Xl] 5 mg PO DAILY 04/24/17 [History] Insulin ASPART [NovoLOG] 0 unit SQ TID PRN 04/24/17 [History] Omeprazole [PriLOSEC] 20 mg PO DAILY 04/24/17 [History] LORazepam [Ativan] 1 mg PO Q4HR PRN #60 tablet 05/10/17 [Rx] Lidocaine/Prilocaine [Emla] 1 appl TP AD PRN #30 gm 05/10/17 [Rx] Promethazine [Phenergan] 25 mg PO Q6HR PRN #60 tablet 05/10/17 [Rx] Nystatin OINT [Mycostatin] 1 appl TP QID #1 tube 06/01/17 [Rx] Diphenoxylate/Atropine [Lomotil 2.5 mg/0.025 mg] 1 each PO TID #30 tablet [Rx] Metformin HCl [Metformin HCl ER] 500 mg PO BID 06/06/17 [History] Oxybutynin [Ditropan] 5 mg PO DAILY 06/06/17 [History] Loperamide [Imodium] 2 mg PO BID 7 Days #14 capsule 06/10/17 [Rx] Loperamide [Imodium] 2 mg PO Q4HR PRN 3 Days #24 capsule 06/10/17 [Rx] Magnesium Oxide [Mag-Ox] 400 mg PO BID 7 Days #14 tablet 06/10/17 [Rx] Allergies/Adverse Reactions: 3 Allergy/AdvReac Type Severity Reaction Status Date / Time No Known Allergies Allergy Verified 06/06/17 10:25 Date of admission: 06/06/17 13:46 Primary care physician: Arin Ventura CNP Consults: 06/06/17 17:21 Consult to Physical Therapy [CONS] Routine Comment: Evaluate, develop and implement POC Reason for Consult: Patient has generalized weakness and fatigue d/t starting chemotherapy. Please assess for strength, stability, ambulation/assistive needs for post-discharge planning. 06/06/17 17:24 Consult to Occupational Therapy [CONS] Routine Comment: Evaluate, develop and implement POC Reason for Consult: Patient has generalized weakness and fatigue d/t starting chemotherapy. Please assess for strength, stability, ambulation/assistive needs for post-discharge planning. 06/07/17 11:11 Consult to Gastroenterology [CONS] Routine Consulting Provider: Gastroenterology Lucy Reason for Consult: Hx. colon cancer with mets to liver and now CT suspicious of cholangiocarcinoma. Hgb now 9.2, yesterday 11.2. 8days loose diarrhea Call Completed: Yes Consult to Oncology Hematology [CONS] Routine Consulting Provider: Luis Givens I Reason for Consult: Hx. colon cancer with mets to liver and now CT suspicious of cholangiocarcinoma. Hgb now 9.2, yesterday 11.2 8days loose diarrhea Call Completed: Yes Discharging clinician: Alcides Foster - Patient Status Disposition: Home Health Service Condition: Fair Functional capacity at discharge: uses cane/walker Overall status at discharge: patient is progressing back to baseline - Discharge Instructions Instructions: Gastrointestinal Bleeding (DC) Follow Up With: Arin Ventura CNP [Primary Care Provider] - 06/18/17 10:30 am Additional Instructions: -Follow up with your oncologist and re-schedule chemotherapy -Follow up with PCP in about a week -continue imodium -continue magnesium -stay hydrated with water -return to hospital if you should worsen such as fever, chills, worsened diarrhea, weakness - Diet and Activity Activity: ambulate only with your walker Diet: advance to your usual diet Hospital course: is a 72 year old female with medical history of arthritis, CAD, diabetes controlled with oral and insulin medications, HLD, HTN, and colon cancer with metastases to liver presents to ED with chief complaint of nausea, vomiting, diarrhea for the past 8 days. Patient describes diarrhea as explosive and watery and confirms she finished doxycycline 100 mg twice a day on May 27 for prophylaxis for chemotherapy preparation. Patient reports she is still nauseous and vomited twice today and was unable to keep her medications down. Patient's last chemotherapy treatment was 8 days ago. Patient was given Lomotil at the cancer center to address diarrhea. Previous C. difficile toxin of her stool was negative this week. Patient states she has been unable to keep liquids or foods down for the past week. Patient also reports generalized weakness, SOB, and fatigue but denies recent illness, fever , chills, changes in vision, lightheadedness, dizziness, chest pain, palpitations, pre-syncope, or syncope. Upon admission, patient's vital signs included temperature of 98.1F, heart rate of 105 bpm, respiratory rate 16, BP 112/75, and SPO 296% on room air. Pertinent abnormal lab values include Hgb of 10.2, HCT of 34.0, MCV of 77.4, MCH 25.5, sodium of 128, potassium 3.1, chloride of 97, CO2 16, calcium of 8.3, glucose of 194. Fecal Hemoccult positive. CT of the abdomen/pelvis today without contrast shows central hepatic mass measuring approximately 5.84.7 cm in size better evaluated on prior contrast enhanced CT. There is associated intrahepatic biliary ductal dilatation. She was been admitted and started on IV fluids, electrolytes replaced. MRCP showed 5.1cmx5.8cm mass centered in hepatic segments suggesting hepatocellular carcinoma. no other liver lesions identified. no findings of cirhosis. GI panel in urine culture was negative. G.I. and oncology were consulted. They believe that this is most likely chemo associate diarrhea due to current episode starting the 1st 48-72 hours after starting cycle 2 of FOLFOX. GI canceled the scope I was possibly to be done today, because hemoglobin is currently stable, no Ricco blood..The patient stated that her diarrhea not improved over the course of her admission but instead was still loose stools about a times a day. She is hemodynamically stable. Electrolytes were supplemented. She denied fever, chills, abdominal pain, nausea, vomiting, chest pain, shortness of breath, dizziness. The patient was instructed to follow-up with primary oncologist Dr. Rodriguez and to reschedule chemotherapy. She was also charged to follow up with her primary care physician, to continue her Imodium, and magnesium. She was told to return to the hospital she she developed fever, chills, worsen diarrhea, weakness. She stated clearly understanding the treatment plan and all questions were answered. - Time Spent with Patient Total time spent providing and/or coordinating discharge services: Greater than 30 minutes - Constitutional Vitals: Temp Pulse Resp BP Pulse Ox 98.4 F 79 18 137/79 98 06/10/17 10:57 06/10/17 10:57 06/10/17 10:57 06/10/17 10:57 06/10/17 10:57 General appearance: Present: cooperative, mild distress, A&O X 3, pleasant, obese, answers questions appropriately Exam: Gen.: Vitals noted. No acute distress. AAOx3 HEENT: oropharynx clear, Normocephalic, atraumatic Neck: Supple. No adenopathy. Cardiac: RRR, systolic murmur, no rubs her gallops Pulmonary: CTA bilaterally, no wheezes, rales or rhonchi, equal chest expansion Abdomen: soft, nontender, Bowel sounds noted, no guarding Extremities: no BLE edema, nontender calf, no cyanosis or clubbing Neuro: A&Ox3, moves all extremities, no focal deficits Psych: Appropriate mood and behavior - VTE Documentation of Mechanical Device: Intermittent pneumatic compression device <Alcides Foster - Last Filed: 06/11/17 16:21> Date of Encounter: 06/11/17 Date of admission: 06/10/17 11:46 Primary care physician: Arin Ventura CNP Hospital course: is a 72 year old female - Time Spent with Patient Total time spent providing and/or coordinating discharge services: - Constitutional Vitals: Temp Pulse Resp BP Pulse Ox 98.4 F 79 18 137/79 98 06/10/17 10:57 06/10/17 10:57 06/10/17 10:57 06/10/17 10:57 06/10/17 10:57 - Attending Attestation Dehydration secondary to acute diarrhea likely related to chemotherapy I examined this patient and my medical decision-making was reviewed with the Resident Physician. I agree with the documented findings, disposition and treatment plan as described except to the extent set forth below.
--- NOTE | 2017-06-10 15:38 | Event Note ---
Date of Encounter: 06/10/17 Time of Encounter: 15:00 Pt had MRCP and cholangiosarcoma. Discussed with pt, no ERCP or intervention at this time. If CBD becomes obstructed by mass she may need ERCP and stenting.
== END 2017-06-10 17:30 | disposition home health service (06) | DRG 392 ==
LOC: 3ANU 10:21 → EMEROO 10:21 → SUATTDRO 13:46 → 3ANU 14:09
PROVIDERS: ADMIT Internal Medicine; ATTEND Internal Medicine

== ENCOUNTER 2017-10-02 08:26 | Inpatient (IN) ==
[2017-10-02] MEDS ORDERED: Ondansetron 4 MG/2 ML VIAL IVP ONE (08:59)
[2017-10-02] MEDS ORDERED: *HR* HYDROmorphone (PF) 1 MG/ML SYRINGE IVP ONE (09:02)
--- NOTE | 2017-10-02 09:07 | Emergency Department Note ---
Disposition Clinical Impression: Diarrhea Qualifiers: Diarrhea type: unspecified type Qualified Code(s): R19.7 - Diarrhea, unspecified Colon cancer Qualifiers: Colon location: unspecified part of colon Qualified Code(s): C18.9 - Malignant neoplasm of colon, unspecified Disposition: Still a Patient Referrals: Arin Ventura CNP [Primary Care Provider] - Forms: ED Satisfaction Letter Time of Disposition: 11:00 General Adult HPI - General Chief complaint: ED Fall Stated complaint: fall Time Seen by Provider: 10/02/17 08:41 Source: patient, family Limitations: no limitations Nursing Notes Reviewed: Yes Vital Signs Reviewed: Yes - History of Present Illness HPI Narrative: History of present illness: 72-year-old female presents in a wheelchair with daughter after mechanical fall sustained yesterday afternoon. Patient reports she was sitting on the commode for period of time because she had stooling. When she tried to get up her feet fell asleep and she fell headfirst into the bathroom door. There was no loss of consciousness. The patient became diaphoretic and pale and had a lie down on the floor, patient's daughter states it was difficult a while to get her up. There was no time where she was cyanotic or stop breathing for the patient's daughter. She denies fever, chills, new medication changes, ill contacts or exotic food. Patient says she is unable to ambulate because her left ankle hurts too much. Patient denies any left hip back neck or head pain. Patient is currently under active chemotherapy for colon cancer with spread to the liver. The plan is chemotherapy to shrink tumor size and then surgical revision. Pain Scale: 10 - Related Data Home Medications Medication Instructions Recorded Confirmed Aspirin [Adult Low Dose Aspirin EC] 81 mg PO DAILY 10/28/15 09/25/17 Atorvastatin [Lipitor] 40 mg PO HS 10/28/15 09/25/17 Ezetimibe [Zetia] 10 mg PO DAILY 10/28/15 09/25/17 Insulin Glargine,Hum.rec.anlog 24 unit SQ 10/28/15 09/25/17 [Lantus Solostar] Lisinopril [Zestril] 10 mg PO DAILY 10/28/15 09/25/17 amLODIPine [Norvasc] 2.5 mg PO DAILY 10/28/15 09/25/17 Amitriptyline HCl 75 mg PO DAILY 04/24/17 09/25/17 Docusate Sodium [Dok] 100 mg PO DAILY PRN 04/24/17 09/25/17 Escitalopram [Lexapro] 20 mg PO DAILY 04/24/17 09/25/17 GlipiZIDE [Glipizide Xl] 5 mg PO DAILY 04/24/17 09/25/17 Insulin ASPART [NovoLOG] 0 unit SQ TID PRN 04/24/17 09/25/17 Omeprazole [PriLOSEC] 20 mg PO DAILY 04/24/17 09/25/17 Oxybutynin [Ditropan] 5 mg PO DAILY 06/06/17 09/25/17 D-Methorphan/Acetamin/Doxylamn 0 ml PO AD 08/14/17 09/25/17 [Coricidin Hbp Cold-Multi Sympt] GuaiFENesin/Dextromethorphan 240 ml PO AD 08/14/17 09/25/17 [Tussin Dm Syrup] Cetirizine HCl [Zyrtec] 10 mg PO DAILY 08/28/17 09/25/17 Loperamide [Imodium] 2 mg PO AD 08/28/17 09/25/17 Desloratadine/Pseudoephedrine 1 each PO BID 09/11/17 09/25/17 [Clarinex-D 12 Hour Tablet] Fluticasone Propionate Nasal 2 spray IN DAILY 09/11/17 09/25/17 [Flonase] Loratadine/Pseudophed (12 HR) 1 each PO DAILY 09/25/17 09/25/17 [Claritin D (12HR)] Previous Rx's Medication Instructions Recorded Magnesium Oxide [Mag-Ox] 400 mg PO BID 7 Days #14 tablet 06/10/17 Colestipol HCl [Colestid] 2 gm PO BID #30 tablet 07/03/17 Cholestyramine (with Sugar) 4 gm PO BID 14 Days #150 gm 07/10/17 [Cholestyramine Bulk Powder] LORazepam [Ativan] 1 mg PO HS PRN #30 tablet 09/11/17 Oseltamivir [Tamiflu] 75 mg PO DAILY #10 capsule 09/11/17 Allergies Allergy/AdvReac Type Severity Reaction Status Date / Time ciprofloxacin [From Cipro] Allergy Hives Verified 10/02/17 08:31 metronidazole [From Flagyl] Allergy Hives Verified 10/02/17 08:31 All systems ED: reviewed and negative except as stated. Constitutional: Reports: weakness (Left ankle) Musculoskeletal: Reports: joint swelling, arthralgia, myalgia Past Medical History - Past Medical History Attestation: Yes The following information was validated with the patient. Source: patient Medical history: Reports: arthritis, cancer, coronary artery disease, diabetes, hyperlipidemia, hypertension, other Surgical history: Reports: cholecystectomy, knee replacement, other Psychiatric history: Reports: anxiety PACKAGING MATERIALS INSPECTOR history: Reports: no PACKAGING MATERIALS INSPECTOR history - Social History Smoking Status: Never smoker Smokeless Tobacco Status: No Alcohol use: Reports: none Drug use: Reports: none Physical Exam - General Limitations: no limitations General appearance: alert, in distress - Head Head exam: atraumatic, normocephalic - Eye Eye exam: Present: normal appearance, PERRL, EOMI - ENT ENT exam: normal oropharynx, mucous membranes moist - Neck Neck exam: Present: normal inspection, full ROM, trachea midline - Chest Chest inspection: Present: normal inspection, symmetric chest wall rise - Respiratory Respiratory exam: Present: normal lung sounds bilaterally - Cardiovascular Cardiovascular exam: Present: regular rate, normal rhythm - Abdominal Exam Abdominal exam: Present: soft, Non-Tender - Extremities Exam Extremities exam: Present: tenderness (Swelling and tenderness to the left ankle , however no ligamentous instability or visible deformity noted) - Expanded Lower Extremity Exam Neurovascular/Tendon exam: Present: normal capillary refill. Absent: pulse deficit Gait: not tested/not observed - Back Exam Back exam: Present: normal inspection, full ROM - Neurological Exam Neurological exam: Present: alert, oriented X3, CN II-XII intact - Psychiatric Psychiatric exam: Present: normal affect, normal mood, depressed Course - Reevaluation(s) Reevaluation #1: From the patient and daughter's history it seems like this was a mechanical fall followed by vasovagal near syncope. Patient will get screening labs IV fluids through her port Dilaudid for pain control and Zofran for nausea control screening labs and x-ray of the left tib-fib and left ankle. Disposition pending Time: 09:12 Reevaluation #2: Patient's laboratory studies within normal limits are baseline for patient. X- ray of the left tib-fib and the left ankle read by radiology as no acute process. Patient says that she has for pain like an x-ray her abdomen she has some mild discomfort but no distention. They said that there is been stooling 6 -8 times per day number in color. Patient is on chemotherapy. Patient will get abdominal pelvic CT. Patient will be signed out to the oncoming ED attending Dr. Lares signed out [address] Lares in stable condition to follow up results of the x-ray of the foot abdominal pelvic CT and placement issues since the patient and the daughter feel that she can go home because she cannot get around. I let me see the social media assistant know about this and she will evaluate patient for placement. Time: 10:43 Vital Signs Temperature 98.9 F 10/02/17 08:27 Pulse Rate 92 10/02/17 08:27 Respiratory Rate 18 10/02/17 08:27 Blood Pressure 140/73 10/02/17 08:27 O2 Sat by Pulse Oximetry 100 10/02/17 08:27 Temperature 98.9 F 10/02/17 08:27 Pulse Rate 93 10/02/17 10:20 Respiratory Rate 16 10/02/17 10:20 Blood Pressure 143/62 10/02/17 10:20 O2 Sat by Pulse Oximetry 98 10/02/17 10:20 Oxygen Delivery Oxygen Delivery Room Air Medical Decision Making - Medical Records Medical records reviewed: Yes I reviewed the patient's medical records. - Lab Data Lab results reviewed: Yes I reviewed the patient's lab results. Result diagrams: 10/02/17 10:03 10/02/17 10:03 Lab Results 10/02/17 10/02/17 10/02/17 Range/Units 10:03 10:03 10:03 WBC 3.9 L (4.3-11.1) K/mcL RBC 3.41 L (3.82-4.97) M/mcL Hgb 9.0 L (11.5-15.4) g/dL Hct 28.9 L (35.3-44.9) % MCV 84.8 (83.0-100.0) fL MCH 26.4 L (28.0-33.3) pg MCHC 31.1 L (31.6-35.5) g/dL RDW 17.8 H (11.5-14.5) % Plt Count 243 (140-400) K/mcL MPV 8.7 L (9.4-12.4) fL Immature Gran % 0.8 (0-4) % Seg Neutrophils % 62.1 % Lymphocytes % 15.2 % Monocytes % 21.3 % Eosinophils % 0.3 % Basophils % 0.3 % Neutrophils # 2.4 (1.6-8.9) K/mcL Lymphocytes # 0.6 (0.6-4.6) K/mcL Monocytes # 0.8 (0.0-1.3) K/mcL Eosinophils # 0.0 (0.0-0.6) K/mcL Basophils # 0.0 (0.0-0.2) K/mcL Sodium 131 L (136-145) mEq/L Potassium 4.7 (3.5-5.1) mEq/L Chloride 97 L (98-107) mEq/L Carbon Dioxide 27 (23-29) mEq/L BUN 28 H (8-23) mg/dL Creatinine 0.62 (0.60-1.20) mg/dL Est GFR ( Amer) > 60 (> 60) Est GFR (Non-Af Amer) > 60 (> 60) BUN/Creatinine Ratio 45 H (6-26) Glucose 179 H (70-105) mg/dL Calculated Osmolality 282 (280-300) Calcium 8.6 (8.6-10.3) mg/dL Troponin I < 0.03 (< 0.04) ng/mL - Radiology Data Radiology results reviewed: Yes I reviewed the patient's radiology results. - EKG Data EKG #1 EKG attestation: Yes I reviewed and interpreted this EKG. EKG results narrative: 12-lead EKG reviewed without Cardiologic assistance: Sinus rhythm at 90 bpm, SC interval and 178 ms within normal limits QRS at the upper limit of normal at 119 ms and QT corrected of 420 ms which is normal patient has incomplete right bundle branch block with nonspecific ST-T changes. No acute ischemic changes are noted. No acute changes when compared to prior EKG dated 06/06/2017
[2017-10-02 10:17] LABS: Basophils % 0.3 %; Eosinophils % 0.3 %; Hematocrit 28.9 % (35.3-44.9); Immature Granulocytes % 0.8 % (0-4); Lymphocytes # 0.6 K/mcL (0.6-4.6); Lymphocytes % 15.2 %; Mean Corpuscular HGB Conc 31.1 g/dL (31.6-35.5); Mean Corpuscular Hemoglobin 26.4 pg (28.0-33.3); Mean Corpuscular Volume 84.8 fL (83.0-100.0); Mean Platelet Volume 8.7 fL (9.4-12.4); Monocytes # 0.8 K/mcL (0.0-1.3); Monocytes % 21.3 %; Platelet Count 243 K/mcL (140-400); Red Blood Count 3.41 M/mcL (3.82-4.97); Red Cell Distribution Width 17.8 % (11.5-14.5); Segmented Neutrophils % 62.1 %
[2017-10-02 10:20] LABS: Neutrophils # 2.4 K/mcL (1.6-8.9)
[2017-10-02 10:26] LABS: Calcium 8.6 mg/dL (8.6-10.3); Carbon Dioxide 27 mEq/L (23-29); Chloride 97 mEq/L (98-107); Potassium 4.7 mEq/L (3.5-5.1); Sodium 131 mEq/L (136-145)
[2017-10-02 10:31] LABS: BUN/Creatinine Ratio 45 (6-26); Blood Urea Nitrogen 28 mg/dL (8-23); Glucose 179 mg/dL (70-105); Osmolality,Calculated 282 (280-300); eGFR For African Americans > 60 (> 60); eGFR For Non-African Americans > 60 (> 60)
--- NOTE | 2017-10-02 12:12 | Emergency Department Note ---
START Narrative - START START: I examined this patient and my medical decision-making was reviewed with the Resident Physician. I agree with the documented findings, disposition and treatment plan as described except to the extent set forth below. pt signed out to me by dr aponte. plan to f/u CT abd pelvis social work met with patient and pt can likely go home with family if labs and CT are ok pt unable to ambulate due to fall and pain will admit for observation
[2017-10-02] MEDS ORDERED: *HR* HYDROcodone/Acet 5/325 mg TABLET PO ONE (13:13)
--- NOTE | 2017-10-02 15:53 | Event Note ---
Date of Encounter: 10/02/17 Time of Encounter: 15:50 72-year-old female seen and examined independently at the bedside with her daughter. Patient has metastatic colon cancer and is on chemotherapy. She had a mechanical fall yesterday morning at home and presented to the ER with difficulty with ambulation. Workup in the ER including CBC, chemistry baseline no tibial ankle fibular fracture, abdomen and pelvis CAT scan shows a stable liver metastases. She is afebrile vital signs are stable. Chest is CTAB, she has a loud systolic murmur. While laying flat in bed she moves all her joints equally without any tenderness. However she insists she is unable to be removed on the left lower extremity. Patient is in need of help at home. Will place on observation, physical therapy and occupational therapy review, as well as social work evaluation for help at home. Diarrhea is likely due to chemo, we will send stool panel is persistent during thsi stay Continue and resume home meds, fall precautions The rest of details will be as documented in the history and physical by ANGELICA Morrow.
[2017-10-02] MEDS ORDERED: *HR* HYDROcodone/Acet 5/325 mg TABLET PO PRN (16:41)
[2017-10-02] MEDS ORDERED: Naloxone 0.4 MG/ML INJ IVP PRN (16:41)
[2017-10-02] MEDS ORDERED: *HR* Morphine 2 MG/ML SYRINGE IVP PRN (16:41)
[2017-10-02] MEDS ORDERED: *HR* LORazepam 1 MG TABLET PO PRN (16:45)
[2017-10-02] MEDS ORDERED: Dextrose Gel 15 GM/37.5 ML TUBE PO PRN ×2 (16:49)
[2017-10-02] MEDS ORDERED: *HR* Dextrose 50 % in Water (Syg) 50 ML SYRINGE IVP PRN (16:49)
[2017-10-02] MEDS ORDERED: D5% in Water 1,000 ML IVC PRN (16:49)
--- NOTE | 2017-10-02 16:53 | Internal Med History&Physical ---
Date of Encounter: 10/02/17 Time of Encounter: 16:51 Assessment and Plan (1) Ambulatory dysfunction Current visit: Yes Status: Acute Ambulatory dysfunction s/p fall yesterday. Since the fall she is reporting left ankle pain. Pulmonary examination she is a decreased range of motion and tenderness to palpation. She was offered to discharge home in the emergency department refused discharge she was unable to ambulate. Physical therapy evaluation completed while in the ED and found she was unable to ambulate even with the assistance of a walker. Initial imaging unremarkable. (2) Ankle pain, left Current visit: Yes Status: Acute s/p fall yesterday. She has a decrease in range of motion and tenderness to palpation. Imaging unremarkable. However, I suspect she may have a soft tissue injury. -Extremity rest -Pain management with morphine for severe pain and Narco for moderate pain -PT and OT for further evaluation of functional capacity; Qualifiers: Chronicity: acute Qualified Code(s): M25.572 - Pain in left ankle and joints of left foot (3) Fall Current visit: Yes Status: Acute Patient reported that she fell yesterday while on the toilet. No history of frequent falls, she does admit to new weakness and fatigue since receiving her most recent dose of chemotherapy. She admits to hitting her head, she is not on any blood thinners. Imaging unremarkable. She is reporting swelling and pain in the left ankle since her fall. Again, imaging unremarkable, however, she does have a decrease in range of motion and tenderness to palpation. -Up with assist only -PT/OT and social and political studies professor consult Qualifiers: Encounter type: initial encounter Qualified Code(s): W19.XXXA - Unspecified fall, initial encounter (4) Chemotherapy induced diarrhea Current visit: Yes Status: Acute Patient reports that she has diarrhea which began yesterday. She notes that she is undergoing chemotherapy, and the last time she had chemotherapy she also developed diarrhea. At that time she was tested for C. difficile and is found to be negative. She is reporting only one episode of diarrhea today. She does not appear dehydrated. Lab work unremarkable -Test stool for C. difficile -If C. difficile negative start patient on Imodium (5) HTN (hypertension) Current visit: Yes Status: Chronic Stable, resume antihypertensives Qualifiers: Hypertension type: essential hypertension Qualified Code(s): I10 - Essential (primary) hypertension (6) HLD (hyperlipidemia) Current visit: Yes Status: Chronic Continue statin Qualifiers: Hyperlipidemia type: pure hypercholesterolemia Qualified Code(s): E78.00 - Pure hypercholesterolemia, unspecified; E78.0 - Pure hypercholesterolemia (7) CAD (coronary artery disease) Current visit: Yes Status: Chronic Continue ASA, Statin and norvasc Qualifiers: Coronary Disease-Associated Artery/Lesion type: unspecified vessel or lesion type [place] vs. transplanted heart: [place] heart Associated angina: angina presence unspecified Qualified Code(s): I25.10 - Atherosclerotic heart disease of [place] coronary artery without angina pectoris (8) Anemia Current visit: Yes Status: Acute Chronic in the setting of cholangiocarcinoma of the liver. No active bleeding. H&H stable. CBCD in the am. Qualifiers: Anemia type: unspecified type Qualified Code(s): D64.9 - Anemia, unspecified (9) Adenocarcinoma of colon metastatic to liver Current visit: Yes Status: Acute Being follow by [facility] (10) Cholangiocarcinoma Current visit: No Status: Acute (11) DVT prophylaxis Current visit: Yes Status: Acute Heparin 5000 units SC BID Internal Medicine - H&P: HPI Chief complaint: fall, ambulatory dysfunction Admitted From: Home Plans for Post Hospital Care: Home History of present illness: is a 72 year old female with a PMH of arthsitis, cholangiocarcinoma of the liver and adenocarcinoma of colon, CAD, DM, HLT, and HTN. She presents today s/p mechanical fall yesterday afternoon. She reports that she was on the commode and when she went to stand fell and hit her head. She denies any LOC, and is not on any blood thinners. She comes in today with c/o Lt ankle pain since her fall. She denies any constitutional symptoms, admits to pain and swelling of the LT ankle. Past Med Surg Social Fam HX - Past Medical History Medical history: arthritis, cancer, coronary artery disease, diabetes, hyperlipidemia, hypertension, other Psychiatric history: anxiety - Past Surgical History Surgical History: cholecystectomy, knee replacement, other - Social History Smoking Status: Never smoker Smokeless Tobacco Status: No Alcohol use: none Drug use: none - Family History Father Family Member Ethnicity: Non- Living Status: Mother Family Member Ethnicity: Non- Living Status: Hx Family Cardiac Disorders: Yes (HD) Sister Family Member Ethnicity: Non- Living Status: Hx Family Cardiac Disorders: Yes (Stroke) Internal Medicine - H&P: Meds Aspirin [Adult Low Dose Aspirin EC] 81 mg PO DAILY 10/28/15 [History] Atorvastatin [Lipitor] 40 mg PO HS 10/28/15 [History] Ezetimibe [Zetia] 10 mg PO DAILY 10/28/15 [History] Insulin Glargine,Hum.rec.anlog [Lantus Solostar] 24 unit SQ HS 10/28/15 [History ] Lisinopril [Zestril] 10 mg PO DAILY 10/28/15 [History] amLODIPine [Norvasc] 2.5 mg PO DAILY 10/28/15 [History] Amitriptyline HCl 75 mg PO DAILY 04/24/17 [History] Docusate Sodium [Dok] 100 mg PO DAILY PRN 04/24/17 [History] Escitalopram [Lexapro] 20 mg PO DAILY 04/24/17 [History] GlipiZIDE [Glipizide Xl] 5 mg PO DAILY 04/24/17 [History] Insulin ASPART [NovoLOG] 0 unit SQ TID PRN 04/24/17 [History] Omeprazole [PriLOSEC] 20 mg PO DAILY 04/24/17 [History] Oxybutynin [Ditropan] 5 mg PO DAILY 06/06/17 [History] Magnesium Oxide [Mag-Ox] 400 mg PO BID 7 Days #14 tablet 06/10/17 [Rx] Colestipol HCl [Colestid] 2 gm PO BID #30 tablet 07/03/17 [Rx] Cholestyramine (with Sugar) [Cholestyramine Bulk Powder] 4 gm PO BID 14 Days # 150 gm 07/10/17 [Rx] D-Methorphan/Acetamin/Doxylamn [Coricidin Hbp Cold-Multi Sympt] 0 ml PO AD 08/14 [History] GuaiFENesin/Dextromethorphan [Tussin Dm Syrup] 240 ml PO AD 08/14/17 [History] Cetirizine HCl [Zyrtec] 10 mg PO DAILY 08/28/17 [History] Loperamide [Imodium] 2 mg PO AD 08/28/17 [History] Desloratadine/Pseudoephedrine [Clarinex-D 12 Hour Tablet] 1 each PO BID [History] Fluticasone Propionate Nasal [Flonase] 2 spray IN DAILY 09/11/17 [History] LORazepam [Ativan] 1 mg PO HS PRN #30 tablet 09/11/17 [Rx] Loratadine/Pseudophed (12 HR) [Claritin D (12HR)] 1 each PO DAILY 09/25/17 [ History] 3 Allergy/AdvReac Type Severity Reaction Status Date / Time ciprofloxacin [From Cipro] Allergy Hives Verified 10/02/17 08:31 metronidazole [From Flagyl] Allergy Hives Verified 10/02/17 08:31 All Systems PM: A 10-system review of systems was performed and is negative for pertinent findings except as documented above in the HPI. - Constitutional Constitutional: no chills, no fever(s), no night sweats - EENT Eyes: no change in vision, no discharge, no pain, no photophobia Ears: no ear discharge, no ear pain, no tinnitus Nose, mouth and throat: no dysphagia, no nasal discharge, no neck pain, no sore throat - Cardiovascular Cardiovascular ROS IM: no chest pain, no diaphoresis, no dyspnea, no lightheadedness, no palpitations, no syncope - Respiratory Respiratory: no cough, no dyspnea, no wheezing, no excessive phlegm production - Gastrointestinal Gastrointestinal: diarrhea (began yesterday; loose), no abdominal pain, no hematemesis, no hematochezia, no melena, no nausea, no vomiting - Genitourinary Genitourinary: no change in urinary stream, no dysuria, no flank pain, no hematuria - Musculoskeletal Musculoskeletal ROS IM: arthralgias, joint swelling, limited range of motion, muscle weakness, myalgias, no numbness, no tingling - Integumentary Integumentary IM: no rash, no unusual bruising - Neurological Neurological ROS: frequent falls, weakness, no confusion, no convulsions, no focal weakness, no headache(s), no numbness, no tingling, no tremor(s) - Hematologic/Lymphatic Hematologic/Lymphatic: no easy bruising - Constitutional Vitals: Temp Pulse Resp BP Pulse Ox 98.3 F 90 16 133/80 99 10/02/17 14:47 10/02/17 14:47 10/02/17 14:47 10/02/17 14:47 10/02/17 14:47 General appearance: Present: cooperative, A&O X 3, no acute distress, answers questions appropriately - Head Head exam: Present: atraumatic, normocephalic - Eye Eye exam: Present: PERRL, conjuntiva pink, sclera anicteric Pupils: Present: PERRL - Neck Neck exam general surgery: Present: supple, trachea midline. Absent: lymphadenopathy - Respiratory Respiratory exam: Present: CTAB. Absent: accessory muscle use, rales, rhonchi, wheezes - Cardiovascular Cardiovascular exam: Present: RRR, +S1, +S2. Absent: diastolic murmur, gallop, rubs, systolic murmur - GI/Abdominal GI/Abdominal exam: Present: normal bowel sounds, soft, no peritoneal signs. Absent: distended, tenderness - Extremities Exam Extremities exam: Present: warm, radial pulses palpable and symmetrical. Absent : calf tenderness, cyanotic, full ROM (Lt ankle; limitations to ROM s/p fall, mild edema; painful to palpation. No circulatory compromise), pedal edema - Neurological Exam Neurological exam: Present: oriented X3. Absent: facial droop, speech deficit - Skin Skin exam: Present: dry, intact Internal Med - H&P Results - Labs CBC & Chem 7: 10/02/17 10:03 10/02/17 10:03 - Impressions Impressions Ankle X-Ray 10/02/17 09:06 IMPRESSION: 1. The left tibia/fibula demonstrates no acute fracture. 2. Normal left ankle alignment with mild remote posttraumatic changes. No acute fracture. D/ / 10/02/2017 10:07:18 Micky Lowe MD / dread Interpreting Provider: Micky Lowe MD Tibia/Fibula X-Ray 10/02/17 09:06 IMPRESSION: 1. The left tibia/fibula demonstrates no acute fracture. 2. Normal left ankle alignment with mild remote posttraumatic changes. No acute fracture. D/ / 10/02/2017 10:07:18 Micky Lowe MD / dread Interpreting Provider: Micky Lowe MD Abdomen/Pelvis CT 10/02/17 10:42 IMPRESSION: 1. No acute abdominopelvic process 2. Stable hepatic mass D/ / Magdaleno Ding MD / Magdaleno Ding MD Interpreting Provider: Magdaleno Ding MD Foot X-Ray 10/02/17 10:42 IMPRESSION: No fracture or dislocation. Osteopenia with mild osteoarthritic changes of the foot. D/ / Julián Chaudhry / Julián Chaudhry Interpreting Provider: Julián Chaudhry
[2017-10-02] MEDS: Loratadine/Pseudophed (12 HR) 1 EACH TABLET PO SCH (17:23)
[2017-10-02] MEDS: Aspirin Enteric Coated 81 MG Tablet PO SCH (17:28)
[2017-10-02] MEDS: amLODIPine 5 MG TABLET PO SCH (17:29)
[2017-10-02] MEDS: Loratadine 10 MG TABLET PO SCH (17:29)
[2017-10-02] MEDS: *HR* Heparin 5,000 UNIT/ML VIAL SQ SCH (17:30)
[2017-10-02] MEDS ORDERED: Insulin DETEMIR 100 UNIT/ML X5UNITS SQ SCH (21:00)
[2017-10-02] MEDS: Insulin LISPRO 300 UNITS/3 ML VIAL SQ SCH (21:56)
[2017-10-02] MEDS: Magnesium Oxide 400 MG TABLET PO SCH (21:58)
[2017-10-03] MEDS: Colestipol Hcl [Colestid] 2 GM PO SCH ×2 (05:31→08:54)
[2017-10-03] MEDS: *HR* Heparin 5,000 UNIT/ML VIAL SQ SCH ×2 (05:52→17:43)
[2017-10-03] MEDS: Insulin LISPRO 300 UNITS/3 ML VIAL SQ SCH ×4 (08:48→21:43)
[2017-10-03] MEDS: Aspirin Enteric Coated 81 MG Tablet PO SCH (08:53)
[2017-10-03] MEDS: Loratadine 10 MG TABLET PO SCH (08:53)
[2017-10-03] MEDS: Magnesium Oxide 400 MG TABLET PO SCH ×2 (08:54→21:39)
[2017-10-03] MEDS: Loratadine/Pseudophed (12 HR) 1 EACH TABLET PO SCH (08:54)
[2017-10-03] MEDS: amLODIPine 5 MG TABLET PO SCH (08:54)
--- NOTE | 2017-10-03 08:58 | Electrocardiograph Report ---
[facility] Date: 2017-10-02 Pat Name: Keri Miller Department: 104 Room: 3A47 Gender: F Banana Expert: : 1945 Requested By: Dawson Loving Order Number: [id number] Reading MD: Santos Quinn MD Measurements Intervals [place] Rate: 90 P: -11 MI: 178 QRS: 43 QRSD: 119 T: 55 QT: 373 QTc: 420 Interpretive Statements SINUS RHYTHM INCOMPLETE RIGHT BUNDLE BRANCH BLOCK [90+ ms QRS DURATION, TERMINAL R IN V1/V2, 40+ ms S IN I/aVL/V4/V5/V6] WARNING: DATA QUALITY MAY AFFECT INTERPRETATION INTERPRETATION BASED ON A DEFAULT AGE OF 40 YEARS Electronically Signed On 10-03-2017 8:56:30 EST by Santos Quinn MD
--- NOTE | 2017-10-03 14:56 | Internal Med Progress Note ---
Date of Encounter: 10/03/17 Time of Encounter: 14:51 - Assessment and plan (1) Ankle pain, left Current Visit: Yes Status: Acute Assessment and plan: s/p fall with Left ankle strain severe pain reviewed x ray - no acute fracture noticed however pt is still not able to bare weight will consult Termination Clerk for further eval May need splint / Air tight boot Cont IV analgesics PRN PT / OT eval may need short term rehab Qualifiers: Chronicity: acute Qualified Code(s): M25.572 - Pain in left ankle and joints of left foot (2) Cholangiocarcinoma Current Visit: No Status: Acute Assessment and plan: cont f/u with Heme Onc as an out pt (3) Ambulatory dysfunction Current Visit: Yes Status: Acute Assessment and plan: cont PT / OT may need short term rehab (4) Adenocarcinoma of colon metastatic to liver Current Visit: Yes Status: Acute Assessment and plan: f/u with Heme Onc as an out pt Getting chemo (5) Diabetes Current Visit: No Status: Chronic Assessment and plan: fasting BS little low today so will cut back on Levemir HS dose cont ISS Qualifiers: Diabetes mellitus type: type 2 Diabetes mellitus complication status: with unspecified complications Diabetes mellitus emt intermediate insulin use: with snf use Qualified Code(s): E11.8 - Type 2 diabetes mellitus with unspecified complications; Z79.4 - skilled nursing (current) use of insulin - Subjective Interval history: is a 72 year old female with a PMH of arthsitis, cholangiocarcinoma of the liver and adenocarcinoma of colon, CAD, DM, HLT, and HTN. She presents today s/p mechanical fall yesterday afternoon. She reports that she was on the commode and when she went to stand fell and hit her head. She denies any LOC, and is not on any blood thinners. She comes in with c/o Lt ankle pain since her fall. She denies any constitutional symptoms, admits to pain and swelling of the LT ankle. Pt stated her pain is tolerable with medication, still in severe Left ankle pain and unable to bare any weight on it. Denied any CP / SOB - Constitutional Vitals: Temp Pulse Resp BP Pulse Ox 99.3 F 82 18 117/71 95 10/03/17 11:04 10/03/17 11:04 10/03/17 11:04 10/03/17 11:04 10/03/17 11:04 General appearance: Present: cooperative, A&O X 3, no acute distress, answers questions appropriately - Head Head exam: Present: atraumatic, normal inspection - Neck Neck exam general surgery: Present: supple - Respiratory Respiratory exam: Present: decreased breath sounds. Absent: rales, respiratory distress, rhonchi, wheezes - Cardiovascular Cardiovascular exam: Present: RRR, +S1, +S2. Absent: tachycardia - GI/Abdominal GI/Abdominal exam: Present: normal bowel sounds, soft. Absent: rebound, rigid, tenderness - Extremities Exam Extremities exam: Present: tenderness. Absent: calf tenderness, pedal edema Additional comments: Diffuse swelling in Left ankle with severe tenderness - Back Exam Back exam: Absent: CVA tenderness (L), CVA tenderness (R) - Neurological Exam Neurological exam: Present: alert, oriented X3 - Psychiatric Psychiatric exam: Present: normal affect, normal mood Internal Medicine: Result - Labs CBC & Chem 7: 10/02/17 10:03 10/02/17 10:03 Consult Discharge Plan - Plan Referrals: Arin Ventura PICK UP TRUCK DRIVER [Primary Care Provider] -
--- NOTE | 2017-10-03 20:49 | Podiatry Consult Note ---
Date of Encounter: 10/03/17 Time of Encounter: 16:46 Assessment and Plan (1) Left ankle sprain Current visit: Yes Status: Acute The patient was instructed to utilize the cam boot any time she is weightbearing. A weightbearing cam boot will be dispensed. The patient may need a walker for assistance after eval by physical therapy. Qualifiers: Encounter type: initial encounter Involved ligament of ankle: anterior talofibular ligament Qualified Code(s): S93.492A - Sprain of other ligament of left ankle, initial encounter History of Present Illness Chief complaint: Left ankle injury HPI: is a 72 year old female who relates that she recently fell and had a left ankle injury. Patient relates that it is significantly painful. Patient denies any other pedal complaints. Past Med Surg Social Fam HX - Past Medical History Medical history: arthritis, cancer, coronary artery disease, diabetes, hyperlipidemia, hypertension, other Psychiatric history: anxiety - Past Surgical History Surgical History: cholecystectomy, knee replacement, other - Social History Smoking Status: Never smoker Smokeless Tobacco Status: No Alcohol use: none Drug use: none - Family History Father Family Member Ethnicity: Non- Living Status: Mother Family Member Ethnicity: Non- Living Status: Hx Family Cardiac Disorders: Yes (HD) Sister Family Member Ethnicity: Non- Living Status: Hx Family Cardiac Disorders: Yes (Stroke) Medications and Allergies Aspirin [Adult Low Dose Aspirin EC] 81 mg PO DAILY 10/28/15 [History] Atorvastatin [Lipitor] 40 mg PO HS 10/28/15 [History] Ezetimibe [Zetia] 10 mg PO DAILY 10/28/15 [History] Insulin Glargine,Hum.rec.anlog [Lantus Solostar] 24 unit SQ HS 10/28/15 [History ] Lisinopril [Zestril] 10 mg PO DAILY 10/28/15 [History] amLODIPine [Norvasc] 2.5 mg PO DAILY 10/28/15 [History] Amitriptyline HCl 75 mg PO DAILY 04/24/17 [History] Docusate Sodium [Dok] 100 mg PO DAILY PRN 04/24/17 [History] Escitalopram [Lexapro] 20 mg PO DAILY 04/24/17 [History] GlipiZIDE [Glipizide Xl] 5 mg PO DAILY 04/24/17 [History] Insulin ASPART [NovoLOG] 0 unit SQ TID PRN 04/24/17 [History] Omeprazole [PriLOSEC] 20 mg PO DAILY 04/24/17 [History] Oxybutynin [Ditropan] 5 mg PO DAILY 06/06/17 [History] Magnesium Oxide [Mag-Ox] 400 mg PO BID 7 Days #14 tablet 06/10/17 [Rx] Colestipol HCl [Colestid] 2 gm PO BID #30 tablet 07/03/17 [Rx] Cholestyramine (with Sugar) [Cholestyramine Bulk Powder] 4 gm PO BID 14 Days # 150 gm 07/10/17 [Rx] D-Methorphan/Acetamin/Doxylamn [Coricidin Hbp Cold-Multi Sympt] 0 ml PO AD 08/14 [History] GuaiFENesin/Dextromethorphan [Tussin Dm Syrup] 240 ml PO AD 08/14/17 [History] Cetirizine HCl [Zyrtec] 10 mg PO DAILY 08/28/17 [History] Loperamide [Imodium] 2 mg PO AD 08/28/17 [History] Desloratadine/Pseudoephedrine [Clarinex-D 12 Hour Tablet] 1 each PO BID [History] Fluticasone Propionate Nasal [Flonase] 2 spray IN DAILY 09/11/17 [History] LORazepam [Ativan] 1 mg PO HS PRN #30 tablet 09/11/17 [Rx] Loratadine/Pseudophed (12 HR) [Claritin D (12HR)] 1 each PO DAILY 09/25/17 [ History] 3 Allergy/AdvReac Type Severity Reaction Status Date / Time ciprofloxacin [From Cipro] Allergy Hives Verified 10/02/17 08:31 metronidazole [From Flagyl] Allergy Hives Verified 10/02/17 08:31 All Systems Reviewed: A 10-system review of systems was performed and is negative for pertinent findings except as documented above in the HPI. Physical Exam - Constitutional Vitals: Temp Pulse Resp BP Pulse Ox 98.5 F 86 15 104/51 98 10/03/17 19:05 10/03/17 19:05 10/03/17 19:05 10/03/17 19:05 10/03/17 19:05 Exam: Edema noted to the left ankle with pain with range of motion. Pedal pulses palpable. Capillary fill time intact to digits 1 through 5 bilaterally. There are no open lesions, abrasions, or ulcerations. Sensation grossly intact to light touch to the level of the digits. Radiographic exam does not demonstrate any fractures Results - Labs Result Diagrams: 10/02/17 10:03 10/02/17 10:03 Labs: Abnormal lab results WBC 3.9 K/mcL (4.3-11.1) L 10/02/17 10:03 RBC 3.41 M/mcL (3.82-4.97) L 10/02/17 10:03 Hgb 9.0 g/dL (11.5-15.4) L 10/02/17 10:03 Hct 28.9 % (35.3-44.9) L 10/02/17 10:03 MCH 26.4 pg (28.0-33.3) L 10/02/17 10:03 MCHC 31.1 g/dL (31.6-35.5) L 10/02/17 10:03 RDW 17.8 % (11.5-14.5) H 10/02/17 10:03 MPV 8.7 fL (9.4-12.4) L 10/02/17 10:03 Sodium 131 mEq/L (136-145) L 10/02/17 10:03 Chloride 97 mEq/L (98-107) L 10/02/17 10:03 BUN 28 mg/dL (8-23) H 10/02/17 10:03 BUN/Creatinine Ratio 45 (6-26) H 10/02/17 10:03 Glucose 179 mg/dL (70-105) H 10/02/17 10:03 POC Glucose 220 (58-89) H 10/03/17 15:49 All other labs normal. Consult Discharge Plan - Plan Referrals: Arin Ventura CNP [Primary Care Provider] -
[2017-10-03] MEDS: Insulin DETEMIR 100 UNIT/ML X5UNITS SQ SCH (21:39)
[2017-10-04] MEDS: *HR* Heparin 5,000 UNIT/ML VIAL SQ SCH ×2 (06:21→17:22)
[2017-10-04] MEDS: Loratadine 10 MG TABLET PO SCH (09:16)
[2017-10-04] MEDS: Insulin LISPRO 300 UNITS/3 ML VIAL SQ SCH ×4 (09:17→20:24)
[2017-10-04] MEDS: Magnesium Oxide 400 MG TABLET PO SCH ×2 (09:17→20:23)
[2017-10-04] MEDS: Aspirin Enteric Coated 81 MG Tablet PO SCH (09:17)
--- NOTE | 2017-10-04 15:57 | Internal Med Progress Note ---
Date of Encounter: 10/04/17 Time of Encounter: 15:55 - Assessment and plan (1) Ankle pain, left Current Visit: Yes Status: Acute Assessment and plan: s/p fall with Left ankle strain severe pain Stunt Performer did evaluated the pt and recommend CAM boot Pt has been doing ok on CAM boot She was evaluated by PT / OT ..recommend ECF for short term PT / OT I did review pt's home situation there is no way she can go home with the severe Left ankle pain She is very high risk for more falls. Since she need to stay here more than 2 nights and required to go to ECF too, will switch her to full admission today Cont IV analgesics PRN I did reviewed my colleague Dr. Chapa's H & P including HPI, PMH, PSH, FH, SH and ROS, no changes noticed Qualifiers: Chronicity: acute Qualified Code(s): M25.572 - Pain in left ankle and joints of left foot (2) Cholangiocarcinoma Current Visit: No Status: Acute Assessment and plan: cont f/u with Heme Onc as an out pt (3) Ambulatory dysfunction Current Visit: Yes Status: Acute Assessment and plan: cont PT / OT may need short term rehab (4) Adenocarcinoma of colon metastatic to liver Current Visit: Yes Status: Acute Assessment and plan: f/u with Heme Onc as an out pt Getting chemo (5) Diabetes Current Visit: No Status: Chronic Assessment and plan: cont ISS + Levemir Qualifiers: Diabetes mellitus type: type 2 Diabetes mellitus complication status: with unspecified complications Diabetes mellitus computer terminal operator insulin use: with mcc use Qualified Code(s): E11.8 - Type 2 diabetes mellitus with unspecified complications; Z79.4 - senior living (current) use of insulin - Subjective Interval history: is a 72 year old female with a PMH of arthsitis, cholangiocarcinoma of the liver and adenocarcinoma of colon, CAD, DM, HLT, and HTN. She presents today s/p mechanical fall yesterday afternoon. She reports that she was on the commode and when she went to stand fell and hit her head. She denies any LOC, and is not on any blood thinners. She comes in with c/o Lt ankle pain since her fall. She denies any constitutional symptoms, admits to pain and swelling of the LT ankle. Pt stated her pain is tolerable with current regimen. She started wearing Cam boot and feels little comfortable today - Constitutional Vitals: Temp Pulse Resp BP Pulse Ox 98.0 F 85 18 134/67 97 10/04/17 14:21 10/04/17 14:21 10/04/17 14:21 10/04/17 14:21 10/04/17 14:21 General appearance: Present: cooperative, A&O X 3, no acute distress, answers questions appropriately - Head Head exam: Present: atraumatic, normal inspection - Neck Neck exam general surgery: Present: supple - Respiratory Respiratory exam: Present: decreased breath sounds. Absent: rales, respiratory distress, rhonchi, wheezes - Cardiovascular Cardiovascular exam: Present: RRR, +S1, +S2. Absent: tachycardia - GI/Abdominal GI/Abdominal exam: Present: normal bowel sounds, soft. Absent: rebound, rigid, tenderness - Extremities Exam Extremities exam: Present: tenderness (Left ankle). Absent: calf tenderness, pedal edema - Back Exam Back exam: Absent: CVA tenderness (L), CVA tenderness (R) - Neurological Exam Neurological exam: Present: alert, oriented X3 Internal Medicine: Result - Labs CBC & Chem 7: 10/02/17 10:03 10/02/17 10:03 Consult Discharge Plan - Plan Referrals: Arin Ventura CNP [Primary Care Provider] -
[2017-10-04] MEDS: Insulin DETEMIR 100 UNIT/ML X5UNITS SQ SCH (20:23)
[2017-10-05] MEDS: *HR* Heparin 5,000 UNIT/ML VIAL SQ SCH ×2 (06:01→17:42)
[2017-10-05] MEDS: Insulin LISPRO 300 UNITS/3 ML VIAL SQ SCH ×4 (07:40→21:04)
[2017-10-05] MEDS: Loratadine 10 MG TABLET PO SCH (07:41)
[2017-10-05] MEDS: Aspirin Enteric Coated 81 MG Tablet PO SCH (07:41)
[2017-10-05] MEDS: Magnesium Oxide 400 MG TABLET PO SCH ×2 (07:42→21:04)
--- NOTE | 2017-10-05 16:41 | Internal Med Progress Note ---
Date of Encounter: 10/05/17 Time of Encounter: 16:39 - Assessment and plan (1) Ankle pain, left Current Visit: Yes Status: Acute Assessment and plan: s/p fall with Left ankle strain severe pain Locator did evaluated the pt and recommend CAM boot Pt has been doing ok on CAM boot She was evaluated by PT / OT ..recommend ECF for short term PT / OT She is very high risk for more falls. Cont IV analgesics PRN Qualifiers: Chronicity: acute Qualified Code(s): M25.572 - Pain in left ankle and joints of left foot (2) Cholangiocarcinoma Current Visit: No Status: Acute Assessment and plan: cont f/u with Heme Onc as an out pt (3) Ambulatory dysfunction Current Visit: Yes Status: Acute Assessment and plan: cont PT / OT need short term rehab (4) Adenocarcinoma of colon metastatic to liver Current Visit: Yes Status: Acute Assessment and plan: f/u with Heme Onc as an out pt Getting chemo (5) Diabetes Current Visit: No Status: Chronic Assessment and plan: cont ISS + Levemir Qualifiers: Diabetes mellitus type: type 2 Diabetes mellitus complication status: with unspecified complications Diabetes mellitus air crew officer insulin use: with air crew officer use Qualified Code(s): E11.8 - Type 2 diabetes mellitus with unspecified complications; Z79.4 - halfway (current) use of insulin - Subjective Interval history: is a 72 year old female with a PMH of arthsitis, cholangiocarcinoma of the liver and adenocarcinoma of colon, CAD, DM, HLT, and HTN. She presents today s/p mechanical fall yesterday afternoon. She reports that she was on the commode and when she went to stand fell and hit her head. She denies any LOC, and is not on any blood thinners. She comes in with c/o Lt ankle pain since her fall. She denies any constitutional symptoms, admits to pain and swelling of the LT ankle. Pt stated her pain is tolerable with current regimen. She started wearing Cam boot and feels little comfortable today.. Denied any CP / SOB - Constitutional Vitals: Temp Pulse Resp BP Pulse Ox 98.7 F 86 14 102/68 97 10/05/17 16:16 10/05/17 16:16 10/05/17 16:16 10/05/17 16:16 10/05/17 16:16 General appearance: Present: cooperative, A&O X 3, no acute distress, answers questions appropriately - Head Head exam: Present: atraumatic, normal inspection - Neck Neck exam general surgery: Present: supple - Respiratory Respiratory exam: Present: CTAB. Absent: accessory muscle use, rales, rhonchi, wheezes - Cardiovascular Cardiovascular exam: Present: RRR, +S1, +S2. Absent: diastolic murmur, gallop, rubs, systolic murmur - GI/Abdominal GI/Abdominal exam: Present: normal bowel sounds, soft. Absent: rebound, rigid, tenderness - Extremities Exam Extremities exam: Present: tenderness (Left ankle). Absent: calf tenderness, pedal edema Additional comments: CAM boot on - Back Exam Back exam: Absent: CVA tenderness (L), CVA tenderness (R) - Psychiatric Psychiatric exam: Present: normal affect, normal mood Internal Medicine: Result - Labs CBC & Chem 7: 10/02/17 10:03 10/02/17 10:03 Consult Discharge Plan - Plan Referrals: Arin Ventura OFFICE MACHINE INSTALLER [Primary Care Provider] -
[2017-10-05] MEDS: Insulin DETEMIR 100 UNIT/ML X5UNITS SQ SCH (21:04)
[2017-10-06] MEDS: *HR* Heparin 5,000 UNIT/ML VIAL SQ SCH ×2 (05:20→17:54)
[2017-10-06] MEDS: Aspirin Enteric Coated 81 MG Tablet PO SCH (07:39)
[2017-10-06] MEDS: Insulin LISPRO 300 UNITS/3 ML VIAL SQ SCH ×4 (07:39→21:09)
[2017-10-06] MEDS: Loratadine 10 MG TABLET PO SCH (07:39)
[2017-10-06] MEDS: Magnesium Oxide 400 MG TABLET PO SCH ×2 (07:40→20:30)
--- NOTE | 2017-10-06 14:35 | Internal Med Progress Note ---
Date of Encounter: 10/06/17 Time of Encounter: 14:32 - Assessment and plan (1) Ankle pain, left Current Visit: Yes Status: Acute Assessment and plan: s/p fall with Left ankle strain pain improved with cam boot Online Editor did evaluated the pt and recommend CAM boot She was evaluated by PT / OT ..recommend ECF for short term PT / OT She is very high risk for more falls Cont IV analgesics PRN Qualifiers: Chronicity: acute Qualified Code(s): M25.572 - Pain in left ankle and joints of left foot (2) Cholangiocarcinoma Current Visit: No Status: Acute Assessment and plan: cont f/u with Heme Onc as an out pt (3) Ambulatory dysfunction Current Visit: Yes Status: Acute Assessment and plan: cont PT / OT need short term rehab (4) Adenocarcinoma of colon metastatic to liver Current Visit: Yes Status: Acute Assessment and plan: f/u with Heme Onc as an out pt Getting chemo (5) Diabetes Current Visit: No Status: Chronic Assessment and plan: cont ISS + Levemir Qualifiers: Diabetes mellitus type: type 2 Diabetes mellitus complication status: with unspecified complications Diabetes mellitus fpc insulin use: with superintendent container terminal use Qualified Code(s): E11.8 - Type 2 diabetes mellitus with unspecified complications; Z79.4 - assistant terminal manager (current) use of insulin - Subjective Interval history: is a 72 year old female with a PMH of arthritis, cholangiocarcinoma of the liver and adenocarcinoma of colon, CAD, DM, HLT, and HTN. She presents today s/p mechanical fall yesterday afternoon. She reports that she was on the commode and when she went to stand fell and hit her head. She denies any LOC, and is not on any blood thinners. She comes in with c/o Lt ankle pain since her fall. She denies any constitutional symptoms, admits to pain and swelling of the LT ankle. Pt stated her pain is tolerable with current regimen. She started wearing Cam boot and feels more comfortable today.. Denied any CP / SOB. No events over night - Constitutional Vitals: Temp Pulse Resp BP Pulse Ox 98.4 F 81 15 117/58 97 10/06/17 11:19 10/06/17 11:19 10/06/17 11:19 10/06/17 11:19 10/06/17 11:19 General appearance: Present: cooperative, A&O X 3, no acute distress, answers questions appropriately - Head Head exam: Present: atraumatic, normal inspection - Neck Neck exam general surgery: Present: supple - Respiratory Respiratory exam: Present: decreased breath sounds. Absent: rales, respiratory distress, rhonchi, wheezes - Cardiovascular Cardiovascular exam: Present: RRR, +S1, +S2. Absent: tachycardia - GI/Abdominal GI/Abdominal exam: Present: normal bowel sounds, soft. Absent: rebound, rigid, tenderness - Extremities Exam Extremities exam: Present: tenderness (Left foot). Absent: calf tenderness, pedal edema - Back Exam Back exam: Absent: CVA tenderness (L), CVA tenderness (R) - Neurological Exam Neurological exam: Present: alert, oriented X3 Internal Medicine: Result - Labs CBC & Chem 7: 10/02/17 10:03 10/02/17 10:03 Consult Discharge Plan - Plan Referrals: Arin Ventura TECHNICAL PRODUCT MANAGER [Primary Care Provider] -
[2017-10-06] MEDS: Insulin DETEMIR 100 UNIT/ML X5UNITS SQ SCH (20:30)
[2017-10-07] MEDS: *HR* Heparin 5,000 UNIT/ML VIAL SQ SCH (05:07)
[2017-10-07] MEDS: Insulin LISPRO 300 UNITS/3 ML VIAL SQ SCH ×2 (07:44→11:34)
[2017-10-07] MEDS: Aspirin Enteric Coated 81 MG Tablet PO SCH (07:44)
[2017-10-07] MEDS: Magnesium Oxide 400 MG TABLET PO SCH (07:45)
[2017-10-07] MEDS: Loratadine 10 MG TABLET PO SCH (07:45)
[2017-10-07 10:13] VITALS: BP 130/73
[2017-10-07] MEDS ORDERED: *HR* OxyCODONE Immed Rel 5 MG TABLET PO PRN (10:58)
--- NOTE | 2017-10-07 11:15 | Discharge Summary ---
Date of Encounter: 10/07/17 Time of Encounter: 11:13 - Discharge Diagnosis (1) Ankle pain, left Priority: Primary Status: Acute Qualifiers: Chronicity: acute Qualified Code(s): M25.572 - Pain in left ankle and joints of left foot (2) Ambulatory dysfunction Priority: Primary Status: Acute (3) Cholangiocarcinoma Priority: Secondary Status: Acute (4) Adenocarcinoma of colon metastatic to liver Priority: Secondary Status: Acute (5) Diabetes Priority: Secondary Status: Chronic Qualifiers: Diabetes mellitus type: type 2 Diabetes mellitus complication status: with unspecified complications Diabetes mellitus terminal carman insulin use: with terminal carman use Qualified Code(s): E11.8 - Type 2 diabetes mellitus with unspecified complications; Z79.4 - termite control servicer (current) use of insulin - Discharge Medications Prescriptions: HYDROcodone/Acet 5/325 mg [[place] 5-325 mg] 1 tab PO Q8HR PRN #15 tablet PRN Reason: Moderate Pain (4-6) LORazepam [Ativan] 1 mg PO HS PRN #10 tablet PRN Reason: Anxiety Home Medications: Aspirin [Adult Low Dose Aspirin EC] 81 mg PO DAILY 10/28/15 [History] Atorvastatin [Lipitor] 40 mg PO HS 10/28/15 [History] Ezetimibe [Zetia] 10 mg PO DAILY 10/28/15 [History] Insulin Glargine,Hum.rec.anlog [Lantus Solostar] 24 unit SQ HS 10/28/15 [History ] Lisinopril [Zestril] 10 mg PO DAILY 10/28/15 [History] amLODIPine [Norvasc] 2.5 mg PO DAILY 10/28/15 [History] Amitriptyline HCl 75 mg PO DAILY 04/24/17 [History] Docusate Sodium [Dok] 100 mg PO DAILY PRN 04/24/17 [History] Escitalopram [Lexapro] 20 mg PO DAILY 04/24/17 [History] GlipiZIDE [Glipizide Xl] 5 mg PO DAILY 04/24/17 [History] Insulin ASPART [NovoLOG] 0 unit SQ TID PRN 04/24/17 [History] Omeprazole [PriLOSEC] 20 mg PO DAILY 04/24/17 [History] Oxybutynin [Ditropan] 5 mg PO DAILY 06/06/17 [History] Magnesium Oxide [Mag-Ox] 400 mg PO BID 7 Days #14 tablet 06/10/17 [Rx] Colestipol HCl [Colestid] 2 gm PO BID #30 tablet 07/03/17 [Rx] Cholestyramine (with Sugar) [Cholestyramine Bulk Powder] 4 gm PO BID 14 Days # 150 gm 07/10/17 [Rx] D-Methorphan/Acetamin/Doxylamn [Coricidin Hbp Cold-Multi Sympt] 0 ml PO AD 08/14 [History] GuaiFENesin/Dextromethorphan [Tussin Dm Syrup] 240 ml PO AD 08/14/17 [History] Cetirizine HCl [Zyrtec] 10 mg PO DAILY 08/28/17 [History] Loperamide [Imodium] 2 mg PO AD 08/28/17 [History] Desloratadine/Pseudoephedrine [Clarinex-D 12 Hour Tablet] 1 each PO BID [History] Fluticasone Propionate Nasal [Flonase] 2 spray IN DAILY 09/11/17 [History] Loratadine/Pseudophed (12 HR) [Claritin D (12HR)] 1 each PO DAILY 09/25/17 [ History] HYDROcodone/Acet 5/325 mg [[place] 5-325 mg] 1 tab PO Q8HR PRN #15 tablet [Rx] LORazepam [Ativan] 1 mg PO HS PRN #10 tablet 10/07/17 [Rx] Allergies/Adverse Reactions: 3 Allergy/AdvReac Type Severity Reaction Status Date / Time ciprofloxacin [From Cipro] Allergy Hives Verified 10/02/17 08:31 metronidazole [From Flagyl] Allergy Hives Verified 10/02/17 08:31 Date of admission: 10/04/17 17:42 Primary care physician: Arin Ventura CNP - Patient Status Disposition: Transfer SNF Condition: Good Overall status at discharge: patient is back to baseline - Discharge Instructions Follow Up With: Arin Ventura CNP [Primary Care Provider] - Sessions,ZULLY GuoM [Partnered Physician] - - Diet and Activity Activity: as per physical therapy, increase activity as tolerated Diet: low salt diet Hospital course: is a 72 year old female with a PMH of arthritis, cholangiocarcinoma of the liver and adenocarcinoma of colon, CAD, DM, HLT, and HTN. She presents today s/p mechanical fall yesterday afternoon. She reports that she was on the commode and when she went to stand fell and hit her head. She denies any LOC, and is not on any blood thinners. She comes in with c/o Lt ankle pain since her fall. She denies any constitutional symptoms, admits to pain and swelling of the LT ankle. Pt was admitted in the hospital and started her on symptomatic and supportive care. Her Left ankle X ray did not show any fracture, however she was not able to bare any weight on Left foot. pt was evaluated by Pitch Gatherer and who suggested to start her on CAM boot. Pt has been doing well on CAM boot. Pt was evaluated by PT / OT who suggested ECF placement for short term rehab. So will d/c her to ECF in stable condition today. - Time Spent with Patient Total time spent providing and/or coordinating discharge services: - Constitutional Vitals: Temp Pulse Resp BP Pulse Ox 98.2 F 81 14 130/73 97 10/07/17 10:11 10/07/17 10:11 10/07/17 10:11 10/07/17 10:11 10/07/17 10:11 General appearance: Present: cooperative, A&O X 3, no acute distress, answers questions appropriately - Head Head exam: Present: atraumatic, normal inspection - Neck Neck exam general surgery: Present: supple - Respiratory Respiratory exam: Present: decreased breath sounds. Absent: rales, respiratory distress, rhonchi, wheezes - Cardiovascular Cardiovascular exam: Present: RRR, +S1, +S2. Absent: tachycardia - GI/Abdominal GI/Abdominal exam: Present: soft. Absent: rebound, rigid, tenderness - Extremities Exam Extremities exam: Present: tenderness (mild tenderness in Left ankle). Absent: calf tenderness, pedal edema - Back Exam Back exam: Absent: CVA tenderness (L), CVA tenderness (R) - Neurological Exam Neurological exam: Present: alert, oriented X3 - Psychiatric Psychiatric exam: Present: normal affect, normal mood
--- NOTE | 2017-10-07 11:17 | Physician Discharge Referral ---
ExtendedCare Referral Info Transfer To: [facility] Provider in Charge after Transfer: PCP Institutional Level of Care: Skilled - Diagnosis (1) Ankle pain, left Status: Acute (2) Ambulatory dysfunction Status: Acute (3) Cholangiocarcinoma Status: Acute (4) Adenocarcinoma of colon metastatic to liver Status: Acute (5) Diabetes Status: Chronic - Transfer Medications Prescriptions: HYDROcodone/Acet 5/325 mg [[place] 5-325 mg] 1 tab PO Q8HR PRN #15 tablet PRN Reason: Moderate Pain (4-6) LORazepam [Ativan] 1 mg PO HS PRN #10 tablet PRN Reason: Anxiety Home Medications: Aspirin [Adult Low Dose Aspirin EC] 81 mg PO DAILY 10/28/15 [History] Atorvastatin [Lipitor] 40 mg PO HS 10/28/15 [History] Ezetimibe [Zetia] 10 mg PO DAILY 10/28/15 [History] Insulin Glargine,Hum.rec.anlog [Lantus Solostar] 24 unit SQ HS 10/28/15 [History ] Lisinopril [Zestril] 10 mg PO DAILY 10/28/15 [History] amLODIPine [Norvasc] 2.5 mg PO DAILY 10/28/15 [History] Amitriptyline HCl 75 mg PO DAILY 04/24/17 [History] Docusate Sodium [Dok] 100 mg PO DAILY PRN 04/24/17 [History] Escitalopram [Lexapro] 20 mg PO DAILY 04/24/17 [History] GlipiZIDE [Glipizide Xl] 5 mg PO DAILY 04/24/17 [History] Insulin ASPART [NovoLOG] 0 unit SQ TID PRN 04/24/17 [History] Omeprazole [PriLOSEC] 20 mg PO DAILY 04/24/17 [History] Oxybutynin [Ditropan] 5 mg PO DAILY 06/06/17 [History] Magnesium Oxide [Mag-Ox] 400 mg PO BID 7 Days #14 tablet 06/10/17 [Rx] Colestipol HCl [Colestid] 2 gm PO BID #30 tablet 07/03/17 [Rx] Cholestyramine (with Sugar) [Cholestyramine Bulk Powder] 4 gm PO BID 14 Days # 150 gm 07/10/17 [Rx] D-Methorphan/Acetamin/Doxylamn [Coricidin Hbp Cold-Multi Sympt] 0 ml PO AD 08/14 [History] GuaiFENesin/Dextromethorphan [Tussin Dm Syrup] 240 ml PO AD 08/14/17 [History] Cetirizine HCl [Zyrtec] 10 mg PO DAILY 08/28/17 [History] Loperamide [Imodium] 2 mg PO AD 08/28/17 [History] Desloratadine/Pseudoephedrine [Clarinex-D 12 Hour Tablet] 1 each PO BID [History] Fluticasone Propionate Nasal [Flonase] 2 spray IN DAILY 09/11/17 [History] Loratadine/Pseudophed (12 HR) [Claritin D (12HR)] 1 each PO DAILY 09/25/17 [ History] HYDROcodone/Acet 5/325 mg [[place] 5-325 mg] 1 tab PO Q8HR PRN #15 tablet [Rx] LORazepam [Ativan] 1 mg PO HS PRN #10 tablet 10/07/17 [Rx] Allergies/Adverse Reactions: 3 Allergy/AdvReac Type Severity Reaction Status Date / Time ciprofloxacin [From Cipro] Allergy Hives Verified 10/02/17 08:31 metronidazole [From Flagyl] Allergy Hives Verified 10/02/17 08:31 - Respiratory Orders Smoking Cessation: Smoking cessation has been advised. For more information, call the [place] Tobacco Quit Line at 3-768-RBXX-NOW. CERTIFICATION: I certify that the transfer of the above named patient to an Extended Care Facility is necessary for the continuing treatment of the diagnosis listed. The above information is true and accurate reflection of patient's current condition. Confidential - Redisclosure prohibited without a patient's written consent.
== END 2017-10-07 13:34 | DRG 563 ==
LOC: 3ANU 08:26 → EMEROO 08:26 → 3ANU 14:21
PROVIDERS: ADMIT Internal Medicine; ATTEND Internal Medicine

== ENCOUNTER 2020-06-19 06:40 | Observation (INO) ==
[2020-06-19] MEDS ORDERED: 0.9 % Sodium Chloride 1,000 ML IVC ONE (07:06)
[2020-06-19 07:50] LABS: Basophils % 0.5 %; Eosinophils # 0.1 K/mcL (0.0-0.6); Eosinophils % 1.9 %; Hemoglobin 11.3 g/dL (11.5-15.4); Immature Granulocytes % 0.3 % (0-4); Lymphocytes % 16.7 %; Mean Corpuscular HGB Conc 31.4 g/dL (31.6-35.5); Mean Corpuscular Hemoglobin 31.4 pg (28.0-33.3); Mean Platelet Volume 10.7 fL (9.4-12.4); Monocytes # 0.6 K/mcL (0.0-1.3); Monocytes % 8.8 %; Neutrophils # 4.5 K/mcL (1.6-8.9); Platelet Count 173 K/mcL (140-400); Red Cell Distribution Width 20.6 % (11.5-14.5); Segmented Neutrophils % 71.8 %; White Blood Count 6.2 K/mcL (4.3-11.1)
[2020-06-19 07:54] LABS: INR 1.2; Prothrombin Time 14.2 Seconds (9.4-12.1)
[2020-06-19 08:05] LABS: Alanine Aminotransferase 9 Units/L (7-52); Albumin 3.6 g/dL (3.5-5.7); Albumin/Globulin Ratio 1.3 (1.1-2.2); Alkaline Phosphatase 80 Units/L (34-104); Aspartate Amino Transferase 17 Units/L (13-39); BUN/Creatinine Ratio 30 (6-26); Blood Urea Nitrogen 16 mg/dL (8-23); Calcium 8.8 mg/dL (8.6-10.3); Carbon Dioxide 25 mEq/L (23-29); Chloride 104 mEq/L (98-107); Globulin 2.8 g/dL (2.4-3.5); Glucose 107 mg/dL (70-105); Lipase 10 Units/L (11-82); Magnesium 1.9 mg/dL (1.6-2.6); Osmolality,Calculated 284 (280-300); Potassium 3.6 mEq/L (3.5-5.1); Sodium 136 mEq/L (136-145); Total Protein 6.4 g/dL (6.4-8.9); Troponin I < 0.03 ng/mL (< 0.04); eGFR For African Americans > 60 (> 60); eGFR For Non-African Americans > 60 (> 60)
[2020-06-19] MEDS ORDERED: Isovue-370 500 ML BOTTLE IVP ONE (08:24)
[2020-06-19 08:32] LABS: Bilirubin,Urine Negative (Negative); Blood,Urine Negative (Negative); Clarity,Urine Clear (Clear); Color,Urine Yellow (Yellow); Glucose,Urine (UA) Normal (Normal); Ketones,Urine Negative (Negative); Leukocyte Esterase,Urine Moderate (Negative); Mucus,Urine Few per lpf (None-Few); Nitrite,Urine Negative (Negative); Protein,Urine Trace mg/dL (Neg-Trace); RBC,Urine 0-3 per hpf (0-3); Specific Gravity,Urine 1.021 (1.010-1.025); Squamous Epithelial Cell,Urine Few per hpf (None-Few); Urobilinogen,Urine Normal (Normal)
[2020-06-19 09:51] LABS: Adenovirus Not Detected (Not Detect); Bordetella Pertussis Not Detected (Not Detect); Chlamydophila pneumoniae Not Detected (Not Detect); Coronavirus 229E Not Detected (Not Detect); Coronavirus HKU1 Not Detected (Not Detect); Coronavirus NL63 Not Detected (Not Detect); Coronavirus OC43 Not Detected (Not Detect); Human Metapneumovirus Not Detected (Not Detect); Human Rhinovirus/Enterovirus Not Detected (Not Detect); Influenza A Subtype 2009 H1 Not Detected (Not Detect); Influenza B Not Detected (Not Detect); Mycoplasma pneumoniae Not Detected (Not Detect); Parainfluenza Virus 1 Not Detected (Not Detect); Parainfluenza Virus 2 Not Detected (Not Detect); Parainfluenza Virus 3 Not Detected (Not Detect); Parainfluenza Virus 4 Not Detected (Not Detect); Respiratory Syncytial Virus Not Detected (Not Detect); SARS-CoV-2 Not Detected (Not Detect)
[2020-06-19] MEDS ORDERED: Acetaminophen 325 MG TABLET PO PRN (09:57)
[2020-06-19] MEDS ORDERED: *HR* Promethazine 25 MG/ML VIAL IVP PRN (09:57)
[2020-06-19 10:19] LABS: Phosphorous 3.5 mg/dL (2.7-4.5)
[2020-06-19] MEDS ORDERED: Dextrose Gel 15 GM/37.5 ML TUBE PO PRN ×2 (10:31)
[2020-06-19] MEDS ORDERED: D5% in Water 1,000 ML IVC PRN (10:31)
[2020-06-19] MEDS ORDERED: *HR* Dextrose 50 % in Water (Vial) 50 ML VIAL IVP PRN (10:31)
[2020-06-19] MEDS ORDERED: Ringers Solution, Lactated 1,000 ML IVC ONE (10:32)
[2020-06-19] MEDS: Insulin LISPRO 300 UNITS/3 ML VIAL SQ SCH ×2 (11:51→15:43)
[2020-06-19 13:12] LABS: Adenovirus F 40/41 PCR Not detected (Not detect); Astrovirus PCR Not detected (Not detect); C.difficile Toxin A/B Gene PCR Not detected (Not detect); Campylobacter by PCR Not detected (Not detect); Cryptosporidium by PCR Not detected (Not detect); Cyclospora cayetanensis PCR Not detected (Not detect); E. coli O157 by PCR Not detected (Not detect); Entamoeba histolytica PCR Not detected (Not detect); Enteroaggregative E.coli(EAEC) Not detected (Not detect); Enteropathogenic E.coli(EPEC) Not detected (Not detect); Enterotoxigenic E.coli (ETEC) Not detected (Not detect); Giardia lamblia PCR Not detected (Not detect); Norovirus GI/GII PCR Not detected (Not detect); Plesiomonas shigelloides PCR Not detected (Not detect); Rotavirus A PCR Not detected (Not detect); Salmonella PCR Not detected (Not detect); Sapovirus PCR Not detected (Not detect); Shig/EnteroinvasiveE coli EIEC Not detected (Not detect); Shigalike tox-prod E coli STEC Not detected (Not detect); Vibrio PCR Not detected (Not detect); Vibrio cholerae PCR Not detected (Not detect); Yersinia enterocolitica PCR Not detected (Not detect)
[2020-06-19] MEDS ORDERED: Diphenoxylate/Atropine 1 TAB TABLET PO PRN (16:27)
[2020-06-19 17:21] LABS: Ferritin 101 ng/mL (10-120)
[2020-06-19 17:35] LABS: Folate > 22.3 ng/mL (3.0-16.0); Vitamin B12 256 pg/mL (250-1100)
[2020-06-19] MEDS ORDERED: *HR* LORazepam 1 MG TABLET PO PRN (18:26)
[2020-06-19] MEDS ORDERED: Nystatin POWDER 30 GM BOTTLE TP PRN (18:26)
[2020-06-19] MEDS: SUB Q INSULIN DEVICE SQ SCH (20:35)
[2020-06-19] MEDS ORDERED: Aspirin Enteric Coated 81 MG Tablet PO SCH (21:00)
[2020-06-19] MEDS ORDERED: Insulin LISPRO 300 UNITS/3 ML VIAL SQ SCH (21:00)
[2020-06-20 04:28] LABS: Hematocrit 32.7 % (35.3-44.9); Hemoglobin 10.5 g/dL (11.5-15.4); Mean Corpuscular HGB Conc 32.1 g/dL (31.6-35.5); Mean Corpuscular Hemoglobin 32.3 pg (28.0-33.3); Mean Corpuscular Volume 100.6 fL (83.0-100.0); Platelet Count 146 K/mcL (140-400); Red Blood Count 3.25 M/mcL (3.82-4.97); Red Cell Distribution Width 20.3 % (11.5-14.5); White Blood Count 4.7 K/mcL (4.3-11.1)
[2020-06-20 04:46] LABS: BUN/Creatinine Ratio 16 (6-26); Blood Urea Nitrogen 7 mg/dL (8-23); Calcium 8.3 mg/dL (8.6-10.3); Carbon Dioxide 27 mEq/L (23-29); Chloride 105 mEq/L (98-107); Glucose 84 mg/dL (70-105); Osmolality,Calculated 283 (280-300); Potassium 3.4 mEq/L (3.5-5.1); Sodium 138 mEq/L (136-145); eGFR For African Americans > 60 (> 60); eGFR For Non-African Americans > 60 (> 60)
[2020-06-20] MEDS ORDERED: Potassium Chloride Elixir 20 MEQ/15 ML UDC PO ONE (07:48)
[2020-06-20] MEDS: Insulin LISPRO 300 UNITS/3 ML VIAL SQ SCH ×3 (08:15→15:45)
[2020-06-20] MEDS ORDERED: lisinopriL 10 MG TABLET PO SCH (09:00)
[2020-06-20] MEDS ORDERED: EZETIMIBE 5 MG PO SCH (09:00)
[2020-06-20] MEDS ORDERED: amLODIPine 5 MG TABLET PO SCH (09:00)
[2020-06-20] MEDS: SUB Q INSULIN DEVICE SQ SCH (15:46)
[2020-06-20] MEDS ORDERED: Cyanocobalamin (B-12) 1,000 MCG TABLET PO SCH (17:00)
[2020-06-20 18:48] VITALS: BP 116/71
== END 2020-06-20 20:29 | disposition home or self-care (01) ==
LOC: 3BNU 06:40 → EMEROOARM 06:40 → 3BNU 10:33
PROVIDERS: ADMIT Internal Medicine; ATTEND Internal Medicine

== ENCOUNTER 2020-11-19 11:13 | Inpatient (IN) ==
[2020-11-19] MEDS ORDERED: Morphine Sulfate 2 MG/ML SYRINGE IVP ONE ×2 (11:26→14:37)
[2020-11-19] MEDS ORDERED: Ondansetron 4 MG/2 ML VIAL IVP ONE (11:26)
[2020-11-19] MEDS ORDERED: 0.9 % Sodium Chloride 1,000 ML IVC ONE (11:26)
[2020-11-19] MEDS ORDERED: Isovue-370 500 ML BOTTLE IVP ONE (11:27)
[2020-11-19 11:43] LABS: Basophils % 0.2 %; Eosinophils # 0.1 K/mcL (0.0-0.6); Eosinophils % 0.7 %; Hematocrit 38.5 % (35.3-44.9); Hemoglobin 12.4 g/dL (11.5-15.4); Immature Granulocytes % 0.3 % (0-4); Lymphocytes # 1.6 K/mcL (0.6-4.6); Lymphocytes % 12.8 %; Mean Corpuscular HGB Conc 32.2 g/dL (31.6-35.5); Mean Corpuscular Hemoglobin 28.6 pg (28.0-33.3); Mean Corpuscular Volume 88.7 fL (83.0-100.0); Mean Platelet Volume 10.3 fL (9.4-12.4); Monocytes # 1.1 K/mcL (0.0-1.3); Neutrophils # 9.5 K/mcL (1.6-8.9); Platelet Count 235 K/mcL (140-400); Red Blood Count 4.34 M/mcL (3.82-4.97); White Blood Count 12.4 K/mcL (4.3-11.1)
[2020-11-19 13:21] LABS: Bilirubin,Urine Negative (Negative); Blood,Urine Negative (Negative); Clarity,Urine Clear (Clear); Color,Urine Light-Yellow (Yellow); Glucose,Urine (UA) Normal (Normal); Ketones,Urine Negative (Negative); Leukocyte Esterase,Urine Negative (Negative); Nitrite,Urine Negative (Negative); PH,Urine 7.5 pH Units (5.0-8.0); Protein,Urine Negative (Neg-Trace); Specific Gravity,Urine 1.013 (1.010-1.025); Urobilinogen,Urine Normal (Normal)
[2020-11-19 13:31] LABS: Alanine Aminotransferase 13 Units/L (7-52); Albumin 3.7 g/dL (3.5-5.7); Albumin/Globulin Ratio 1.2 (1.1-2.2); Alkaline Phosphatase 102 Units/L (34-104); Amylase 14 Units/L (29-103); Aspartate Amino Transferase 29 Units/L (13-39); BUN/Creatinine Ratio 23 (6-26); Bilirubin,Direct 0.2 mg/dL (0.0-0.2); Bilirubin,Indirect 0.5 mg/dL (0.0-1.0); Bilirubin,Total 0.7 mg/dL (0.3-1.0); Blood Urea Nitrogen 11 mg/dL (8-23); Carbon Dioxide 29 mEq/L (23-29); Chloride 94 mEq/L (98-107); Glucose 63 mg/dL (70-105); Lipase 5 Units/L (11-82); Osmolality,Calculated 269 (280-300); Potassium 4.5 mEq/L (3.5-5.1); Sodium 131 mEq/L (136-145); Total Protein 6.7 g/dL (6.4-8.9); eGFR For African Americans > 60 (> 60); eGFR For Non-African Americans > 60 (> 60)
[2020-11-19] MEDS ORDERED: Piperacillin/Tazobactam 3.375 GM in Water for inj. (sterile) 20 ML IVP ONE (14:29)
[2020-11-19] MEDS ORDERED: Ondansetron 4 MG/2 ML VIAL IVP PRN (15:01)
[2020-11-19] MEDS ORDERED: Naloxone 0.4 MG/ML INJ IVP PRN ×2 (15:01→20:00)
[2020-11-19] MEDS ORDERED: Acetaminophen 325 MG TABLET PO PRN (15:01)
[2020-11-19] MEDS ORDERED: Dextrose Gel 15 GM/37.5 ML TUBE PO PRN ×4 (15:05→20:00)
[2020-11-19] MEDS ORDERED: *HR* Dextrose 50 % in Water (Vial) 50 ML VIAL IVP PRN ×3 (15:05→20:00)
[2020-11-19] MEDS ORDERED: D5% in Water 1,000 ML IVC PRN ×2 (15:05→20:00)
[2020-11-19] MEDS ORDERED: Piperacillin/Tazobactam 3.375 GM in 0.9 % Sodium Chloride Mini Bag 100 ML IVPB SCH (16:00)
[2020-11-19 16:11] LABS: Influenza A PCR Negative (Negative); Influenza B PCR Negative (Negative); Resp. Syncytial Virus PCR Negative (Negative)
[2020-11-19 16:17] LABS: SARS-CoV-2 by PCR (In House) Negative (Negative)
[2020-11-19] MEDS ORDERED: *HR* Propofol 200 MG/20 ML VIAL IVP ONE (16:30)
[2020-11-19] MEDS ORDERED: *HR* Dextrose 50 % in Water (Vial) 50 ML VIAL ONE (16:49)
[2020-11-19] MEDS ORDERED: Lidocaine HCL 4 ML Topical Solution (Laryng-O-Jet Kit Sterile Pak) TP ONE (16:55)
[2020-11-19] MEDS ORDERED: *HR* Rocuronium Bromide 50 MG/5 ML VIAL ONE (16:55)
[2020-11-19] MEDS ORDERED: *HR* Succinylcholine 200 MG/10 ML VIAL IVP ONE (16:55)
[2020-11-19] MEDS ORDERED: D5% in 0.9% NACL 1,000 ML IVC ONE (16:57)
[2020-11-19] MEDS ORDERED: D5% in 0.9% NACL 1,000 ML IVC SCH (17:00)
[2020-11-19] MEDS ORDERED: *HR* FentaNYL (PF) 100 MCG/2 ML VIAL ONE (17:31)
[2020-11-19] MEDS ORDERED: Insulin LISPRO 300 UNITS/3 ML VIAL SUBQ SCH (18:00)
[2020-11-19] MEDS ORDERED: *HR* Labetalol 20 MG/4 ML SYRINGE IVP PRN (19:08)
[2020-11-19] MEDS ORDERED: Famotidine 20 MG/2 ML VIAL IVP ONE (19:08)
[2020-11-19] MEDS ORDERED: *HR* OxyCODONE Immed Rel 5 MG TABLET PO PRN (19:08)
[2020-11-19] MEDS ORDERED: *HR* HYDROmorphone (PF) 1 MG/ML SYRINGE IVP PRN (19:08)
[2020-11-19] MEDS ORDERED: Promethazine 6.25 MG in Water for inj. (sterile) 20 ML IVPB PRN (19:08)
[2020-11-19] MEDS ORDERED: *HR* HYDROmorphone 2 MG TABLET PO PRN (19:08)
[2020-11-19] MEDS ORDERED: Acetaminophen IV 1,000 MG/100 ML BAG IVPB ONE (19:08)
[2020-11-19] MEDS: 0.9 % Sodium Chloride 1,000 ML IVC SCH (21:31)
[2020-11-20] MEDS ORDERED: Piperacillin/Tazobactam 3.375 GM in 0.9 % Sodium Chloride Mini Bag 100 ML IVPB SCH
[2020-11-20] MEDS: Piperacillin/Tazobactam 3.375 GM in 0.9 % Sodium Chloride Mini Bag 100 ML IVPB SCH ×3 (00:17→17:26)
[2020-11-20] MEDS: Insulin LISPRO 300 UNITS/3 ML VIAL SUBQ SCH ×5 (00:41→20:57)
[2020-11-20] MEDS: 0.9 % Sodium Chloride 1,000 ML IVC SCH ×5 (05:45→21:01)
[2020-11-20] MEDS: Acetaminophen 325 MG TABLET PO PRN ×2 (05:54→11:49)
[2020-11-20 08:03] LABS: Hematocrit 33.9 % (35.3-44.9); Mean Corpuscular HGB Conc 31.3 g/dL (31.6-35.5); Mean Corpuscular Hemoglobin 28.6 pg (28.0-33.3); Mean Corpuscular Volume 91.4 fL (83.0-100.0); Mean Platelet Volume 10.6 fL (9.4-12.4); Platelet Count 199 K/mcL (140-400); Red Blood Count 3.71 M/mcL (3.82-4.97); White Blood Count 14.2 K/mcL (4.3-11.1)
[2020-11-20 08:07] LABS: Hemoglobin 10.6 g/dL (11.5-15.4)
[2020-11-20 08:24] LABS: BUN/Creatinine Ratio 24 (6-26); Blood Urea Nitrogen 14 mg/dL (8-23); Calcium 8.3 mg/dL (8.6-10.3); Carbon Dioxide 24 mEq/L (23-29); Chloride 99 mEq/L (98-107); Glucose 269 mg/dL (70-105); Magnesium 1.7 mg/dL (1.6-2.6); Osmolality,Calculated 280 (280-300); Potassium 4.1 mEq/L (3.5-5.1); Sodium 130 mEq/L (136-145); eGFR For African Americans > 60 (> 60); eGFR For Non-African Americans > 60 (> 60)
[2020-11-20] MEDS ORDERED: Fluticasone Propionate Nasal 50 MCG/SPRAY BOTTLE NS SCH (09:00)
[2020-11-20] MEDS: amLODIPine 5 MG TABLET PO SCH (09:09)
[2020-11-20] MEDS: Fluticasone Propionate Nasal 50 MCG/SPRAY BOTTLE NS SCH (11:41)
[2020-11-20] MEDS ORDERED: *HR* OxyCODONE/APAP 5/325 TABLET PO PRN (13:38)
[2020-11-20] MEDS: *HR* HYDROcodone/Acet 5/325 mg TABLET PO PRN ×2 (14:27→20:56)
[2020-11-20] MEDS: Insulin DETEMIR 100 UNIT/ML X5UNITS SUBQ SCH (20:56)
[2020-11-20] MEDS: Aspirin Enteric Coated 81 MG Tablet PO SCH (20:56)
[2020-11-20] MEDS: *HR* LORazepam 1 MG TABLET PO PRN (21:00)
[2020-11-21] MEDS ORDERED: Ondansetron Oral Soln 2 MG/2.5 ML ORAL.SYG PO STA
[2020-11-21] MEDS: Piperacillin/Tazobactam 3.375 GM in 0.9 % Sodium Chloride Mini Bag 100 ML IVPB SCH ×3 (01:57→21:30)
[2020-11-21] MEDS: 0.9 % Sodium Chloride 1,000 ML IVC SCH (01:58)
[2020-11-21 02:26] LABS: Hematocrit 32.3 % (35.3-44.9); Hemoglobin 10.4 g/dL (11.5-15.4); Mean Corpuscular HGB Conc 32.2 g/dL (31.6-35.5); Mean Corpuscular Hemoglobin 29.1 pg (28.0-33.3); Mean Corpuscular Volume 90.5 fL (83.0-100.0); Mean Platelet Volume 10.5 fL (9.4-12.4); Platelet Count 197 K/mcL (140-400); Red Blood Count 3.57 M/mcL (3.82-4.97); Red Cell Distribution Width 15.1 % (11.5-14.5); White Blood Count 12.6 K/mcL (4.3-11.1)
[2020-11-21 02:49] LABS: BUN/Creatinine Ratio 24 (6-26); Blood Urea Nitrogen 12 mg/dL (8-23); Calcium 8.4 mg/dL (8.6-10.3); Carbon Dioxide 24 mEq/L (23-29); Chloride 97 mEq/L (98-107); Glucose 161 mg/dL (70-105); Magnesium 1.7 mg/dL (1.6-2.6); Osmolality,Calculated 267 (280-300); Sodium 127 mEq/L (136-145); eGFR For African Americans > 60 (> 60); eGFR For Non-African Americans > 60 (> 60)
[2020-11-21] MEDS: Insulin LISPRO 300 UNITS/3 ML VIAL SUBQ SCH ×4 (08:24→21:31)
[2020-11-21] MEDS: amLODIPine 5 MG TABLET PO SCH (09:03)
[2020-11-21] MEDS: lisinopriL 10 MG TABLET PO SCH (09:05)
[2020-11-21] MEDS: Fluticasone Propionate Nasal 50 MCG/SPRAY BOTTLE NS SCH (09:06)
[2020-11-21] MEDS: Ondansetron 4 MG/2 ML VIAL IVP PRN ×2 (09:26→18:35)
[2020-11-21] MEDS: *HR* Heparin 5,000 UNIT/ML VIAL SQ SCH ×2 (12:07→17:41)
[2020-11-21] MEDS: *HR* HYDROcodone/Acet 5/325 mg TABLET PO PRN (13:57)
[2020-11-21] MEDS ORDERED: *HR* Promethazine 25 MG/ML VIAL IM PRN (18:49)
[2020-11-21] MEDS: Aspirin Enteric Coated 81 MG Tablet PO SCH (21:29)
[2020-11-21] MEDS: Insulin DETEMIR 100 UNIT/ML X5UNITS SUBQ SCH (21:30)
[2020-11-22] MEDS: Piperacillin/Tazobactam 3.375 GM in 0.9 % Sodium Chloride Mini Bag 100 ML IVPB SCH ×3 (06:17→21:09)
[2020-11-22] MEDS: *HR* Heparin 5,000 UNIT/ML VIAL SQ SCH ×2 (06:18→16:40)
[2020-11-22 07:05] LABS: Hemoglobin 9.8 g/dL (11.5-15.4); Mean Corpuscular HGB Conc 31.6 g/dL (31.6-35.5); Mean Corpuscular Hemoglobin 28.5 pg (28.0-33.3); Mean Corpuscular Volume 90.1 fL (83.0-100.0); Mean Platelet Volume 10.7 fL (9.4-12.4); Platelet Count 217 K/mcL (140-400); Red Blood Count 3.44 M/mcL (3.82-4.97); Red Cell Distribution Width 14.9 % (11.5-14.5); White Blood Count 10.7 K/mcL (4.3-11.1)
[2020-11-22 07:29] LABS: BUN/Creatinine Ratio 26 (6-26); Blood Urea Nitrogen 12 mg/dL (8-23); Calcium 8.6 mg/dL (8.6-10.3); Carbon Dioxide 26 mEq/L (23-29); Chloride 96 mEq/L (98-107); Glucose 164 mg/dL (70-105); Osmolality,Calculated 273 (280-300); Potassium 3.6 mEq/L (3.5-5.1); Sodium 130 mEq/L (136-145); eGFR For African Americans > 60 (> 60); eGFR For Non-African Americans > 60 (> 60)
[2020-11-22] MEDS: Fluticasone Propionate Nasal 50 MCG/SPRAY BOTTLE NS SCH (09:22)
[2020-11-22] MEDS: lisinopriL 10 MG TABLET PO SCH (09:24)
[2020-11-22] MEDS: amLODIPine 5 MG TABLET PO SCH (09:24)
[2020-11-22] MEDS: Insulin LISPRO 300 UNITS/3 ML VIAL SUBQ SCH ×4 (09:25→21:10)
[2020-11-22] MEDS: Ondansetron 4 MG/2 ML VIAL IVP PRN ×2 (09:31→16:40)
[2020-11-22] MEDS ORDERED: Metoclopramide 10 MG/2 ML VIAL IVP ONE (13:20)
[2020-11-22] MEDS: Aspirin Enteric Coated 81 MG Tablet PO SCH (20:07)
[2020-11-22] MEDS: Insulin DETEMIR 100 UNIT/ML X5UNITS SUBQ SCH (21:10)
[2020-11-22] MEDS: *HR* LORazepam 1 MG TABLET PO PRN (22:50)
[2020-11-23] MEDS: Piperacillin/Tazobactam 3.375 GM in 0.9 % Sodium Chloride Mini Bag 100 ML IVPB SCH ×3 (05:19→20:42)
[2020-11-23] MEDS: *HR* Heparin 5,000 UNIT/ML VIAL SQ SCH ×2 (05:20→18:36)
[2020-11-23 06:43] LABS: Hematocrit 30.5 % (35.3-44.9); Hemoglobin 9.9 g/dL (11.5-15.4); Mean Corpuscular HGB Conc 32.5 g/dL (31.6-35.5); Mean Corpuscular Hemoglobin 28.9 pg (28.0-33.3); Mean Corpuscular Volume 89.2 fL (83.0-100.0); Mean Platelet Volume 10.5 fL (9.4-12.4); Platelet Count 231 K/mcL (140-400); Red Blood Count 3.42 M/mcL (3.82-4.97); Red Cell Distribution Width 14.6 % (11.5-14.5); White Blood Count 9.3 K/mcL (4.3-11.1)
[2020-11-23 06:44] LABS: Alanine Aminotransferase 20 Units/L (7-52); Albumin 2.8 g/dL (3.5-5.7); Albumin/Globulin Ratio 0.9 (1.1-2.2); Alkaline Phosphatase 85 Units/L (34-104); Aspartate Amino Transferase 30 Units/L (13-39); BUN/Creatinine Ratio 17 (6-26); Bilirubin,Total 0.8 mg/dL (0.3-1.0); Blood Urea Nitrogen 8 mg/dL (8-23); Calcium 8.5 mg/dL (8.6-10.3); Carbon Dioxide 28 mEq/L (23-29); Chloride 94 mEq/L (98-107); Globulin 3.2 g/dL (2.4-3.5); Glucose 206 mg/dL (70-105); Magnesium 1.6 mg/dL (1.6-2.6); Osmolality,Calculated 274 (280-300); Potassium 3.3 mEq/L (3.5-5.1); Sodium 130 mEq/L (136-145); eGFR For African Americans > 60 (> 60); eGFR For Non-African Americans > 60 (> 60)
[2020-11-23] MEDS: Ondansetron 4 MG/2 ML VIAL IVP PRN ×2 (08:00→20:40)
[2020-11-23] MEDS: Insulin LISPRO 300 UNITS/3 ML VIAL SUBQ SCH ×4 (08:02→20:51)
[2020-11-23] MEDS: Fluticasone Propionate Nasal 50 MCG/SPRAY BOTTLE NS SCH (08:02)
[2020-11-23] MEDS: amLODIPine 5 MG TABLET PO SCH (08:16)
[2020-11-23] MEDS: lisinopriL 10 MG TABLET PO SCH (08:16)
[2020-11-23] MEDS: Metoclopramide 10 MG/2 ML VIAL IVP SCH (18:37)
[2020-11-23] MEDS ORDERED: 0.9 % Sodium Chloride 1,000 ML IVC SCH (19:00)
[2020-11-23] MEDS: Aspirin Enteric Coated 81 MG Tablet PO SCH (20:34)
[2020-11-23] MEDS: Insulin DETEMIR 100 UNIT/ML X5UNITS SUBQ SCH (20:52)
[2020-11-24] MEDS: Metoclopramide 10 MG/2 ML VIAL IVP SCH ×4 (00:39→17:56)
[2020-11-24 01:33] LABS: Hematocrit 30.4 % (35.3-44.9); Hemoglobin 9.8 g/dL (11.5-15.4); Mean Corpuscular HGB Conc 32.2 g/dL (31.6-35.5); Mean Corpuscular Hemoglobin 28.3 pg (28.0-33.3); Mean Corpuscular Volume 87.9 fL (83.0-100.0); Mean Platelet Volume 10.1 fL (9.4-12.4); Platelet Count 239 K/mcL (140-400); Red Blood Count 3.46 M/mcL (3.82-4.97); Red Cell Distribution Width 14.7 % (11.5-14.5); White Blood Count 7.8 K/mcL (4.3-11.1)
[2020-11-24 01:50] LABS: BUN/Creatinine Ratio 16 (6-26); Blood Urea Nitrogen 7 mg/dL (8-23); Calcium 8.4 mg/dL (8.6-10.3); Carbon Dioxide 29 mEq/L (23-29); Chloride 95 mEq/L (98-107); Glucose 185 mg/dL (70-105); Osmolality,Calculated 275 (280-300); Potassium 3.4 mEq/L (3.5-5.1); Sodium 131 mEq/L (136-145); eGFR For African Americans > 60 (> 60); eGFR For Non-African Americans > 60 (> 60)
[2020-11-24] MEDS: Piperacillin/Tazobactam 3.375 GM in 0.9 % Sodium Chloride Mini Bag 100 ML IVPB SCH ×3 (05:44→20:31)
[2020-11-24] MEDS: *HR* Heparin 5,000 UNIT/ML VIAL SQ SCH ×2 (05:45→17:56)
[2020-11-24] MEDS: Insulin LISPRO 300 UNITS/3 ML VIAL SUBQ SCH ×4 (08:08→21:21)
[2020-11-24] MEDS: Ondansetron 4 MG/2 ML VIAL IVP PRN ×2 (10:13→18:32)
[2020-11-24] MEDS: lisinopriL 10 MG TABLET PO SCH (10:26)
[2020-11-24] MEDS: amLODIPine 5 MG TABLET PO SCH (10:26)
[2020-11-24] MEDS: Fluticasone Propionate Nasal 50 MCG/SPRAY BOTTLE NS SCH (10:27)
[2020-11-24] MEDS: Aspirin Enteric Coated 81 MG Tablet PO SCH (20:29)
[2020-11-24] MEDS: Insulin DETEMIR 100 UNIT/ML X5UNITS SUBQ SCH (21:19)
[2020-11-25] MEDS: Metoclopramide 10 MG/2 ML VIAL IVP SCH ×3 (00:47→12:18)
[2020-11-25] MEDS: Piperacillin/Tazobactam 3.375 GM in 0.9 % Sodium Chloride Mini Bag 100 ML IVPB SCH ×2 (05:59→12:17)
[2020-11-25] MEDS: *HR* Heparin 5,000 UNIT/ML VIAL SQ SCH ×2 (06:00→16:52)
[2020-11-25 06:42] LABS: Hematocrit 30.9 % (35.3-44.9); Hemoglobin 9.8 g/dL (11.5-15.4); Mean Corpuscular HGB Conc 31.7 g/dL (31.6-35.5); Mean Corpuscular Hemoglobin 28.3 pg (28.0-33.3); Mean Corpuscular Volume 89.3 fL (83.0-100.0); Platelet Count 241 K/mcL (140-400); Red Blood Count 3.46 M/mcL (3.82-4.97); Red Cell Distribution Width 14.7 % (11.5-14.5); White Blood Count 7.2 K/mcL (4.3-11.1)
[2020-11-25 07:00] LABS: BUN/Creatinine Ratio 25 (6-26); Blood Urea Nitrogen 10 mg/dL (8-23); Calcium 8.4 mg/dL (8.6-10.3); Carbon Dioxide 35 mEq/L (23-29); Chloride 98 mEq/L (98-107); Glucose 115 mg/dL (70-105); Osmolality,Calculated 284 (280-300); Potassium 3.1 mEq/L (3.5-5.1); Sodium 137 mEq/L (136-145); eGFR For African Americans > 60 (> 60); eGFR For Non-African Americans > 60 (> 60)
[2020-11-25] MEDS: Insulin LISPRO 300 UNITS/3 ML VIAL SUBQ SCH ×4 (09:12→21:53)
[2020-11-25] MEDS: amLODIPine 5 MG TABLET PO SCH (09:37)
[2020-11-25] MEDS: lisinopriL 10 MG TABLET PO SCH (09:37)
[2020-11-25] MEDS: Fluticasone Propionate Nasal 50 MCG/SPRAY BOTTLE NS SCH (09:51)
[2020-11-25] MEDS: Psyllium 1 PACKET POWD.PACK PO SCH ×2 (16:59→22:27)
[2020-11-25] MEDS: Insulin DETEMIR 100 UNIT/ML X5UNITS SUBQ SCH (21:56)
[2020-11-25] MEDS: Aspirin Enteric Coated 81 MG Tablet PO SCH (21:56)
[2020-11-26] MEDS: *HR* Heparin 5,000 UNIT/ML VIAL SQ SCH (05:28)
[2020-11-26 07:47] VITALS: BP 139/70
[2020-11-26] MEDS: Insulin LISPRO 300 UNITS/3 ML VIAL SUBQ SCH (08:50)
[2020-11-26] MEDS: amLODIPine 5 MG TABLET PO SCH (08:51)
[2020-11-26] MEDS: lisinopriL 10 MG TABLET PO SCH (08:51)
[2020-11-26] MEDS: Psyllium 1 PACKET POWD.PACK PO SCH (08:51)
[2020-11-26] MEDS: Fluticasone Propionate Nasal 50 MCG/SPRAY BOTTLE NS SCH (08:52)
[2020-11-26] MEDS ORDERED: Potassium Chloride Elixir 20 MEQ/15 ML UDC PO SCH (09:00)
[2020-11-26] MEDS ORDERED: FLU Vac QV 20-21 (6Month+)/PF 0.5 ML SYRINGE IM ONE (11:06)
== END 2020-11-26 11:40 | disposition home health service (06) | DRG 854 ==
LOC: 3ANU 11:13 → EMEROOARM 11:13 → 3ANU 16:41 → SUATTDRO 18:38
PROVIDERS: ADMIT Internal Medicine; ATTEND Internal Medicine

== ENCOUNTER 2020-12-10 14:47 | Inpatient (IN) ==
[2020-12-10] MEDS ORDERED: 0.9 % Sodium Chloride 1,000 ML IVC ONE (15:46)
[2020-12-10] MEDS ORDERED: Ondansetron 4 MG/2 ML VIAL IVP ONE (15:46)
[2020-12-10 16:57] LABS: Basophils % 0.5 %; Eosinophils # 0.1 K/mcL (0.0-0.6); Eosinophils % 1.5 %; Hematocrit 33.8 % (35.3-44.9); Hemoglobin 10.5 g/dL (11.5-15.4); Immature Granulocytes % 0.4 % (0-4); Lymphocytes % 14.2 %; Mean Corpuscular HGB Conc 31.1 g/dL (31.6-35.5); Mean Corpuscular Hemoglobin 27.8 pg (28.0-33.3); Mean Corpuscular Volume 89.4 fL (83.0-100.0); Monocytes # 0.8 K/mcL (0.0-1.3); Monocytes % 11.1 %; Neutrophils # 5.3 K/mcL (1.6-8.9); Platelet Count 339 K/mcL (140-400); Red Blood Count 3.78 M/mcL (3.82-4.97); Red Cell Distribution Width 14.7 % (11.5-14.5); Segmented Neutrophils % 72.3 %; White Blood Count 7.3 K/mcL (4.3-11.1)
[2020-12-10 17:04] LABS: INR 1.3; Prothrombin Time 14.7 Seconds (9.4-12.1)
[2020-12-10 17:07] LABS: Activated Partial Thrombo Time 33.7 Seconds (26.0-36.0)
[2020-12-10 17:19] LABS: Alanine Aminotransferase 16 Units/L (7-52); Albumin 3.3 g/dL (3.5-5.7); Albumin/Globulin Ratio 0.9 (1.1-2.2); Alkaline Phosphatase 107 Units/L (34-104); Aspartate Amino Transferase 30 Units/L (13-39); BUN/Creatinine Ratio 19 (6-26); Bilirubin,Direct 0.1 mg/dL (0.0-0.2); Bilirubin,Indirect 0.4 mg/dL (0.0-1.0); Bilirubin,Total 0.5 mg/dL (0.3-1.0); Blood Urea Nitrogen 11 mg/dL (8-23); Calcium 8.8 mg/dL (8.6-10.3); Carbon Dioxide 29 mEq/L (23-29); Chloride 95 mEq/L (98-107); Globulin 3.5 g/dL (2.4-3.5); Glucose 102 mg/dL (70-105); Lipase 5 Units/L (11-82); Osmolality,Calculated 274 (280-300); Potassium 4.2 mEq/L (3.5-5.1); Sodium 132 mEq/L (136-145); Total Protein 6.8 g/dL (6.4-8.9); Troponin I < 0.03 ng/mL (< 0.04); eGFR For African Americans > 60 (> 60); eGFR For Non-African Americans > 60 (> 60)
[2020-12-10] MEDS ORDERED: Ketorolac 15 MG/ML VIAL IVP PRN (18:25)
[2020-12-10] MEDS ORDERED: Naloxone 0.4 MG/ML INJ IVP PRN (18:25)
[2020-12-10] MEDS ORDERED: Ondansetron 4 MG/2 ML VIAL IVP PRN (18:25)
[2020-12-10] MEDS ORDERED: D5% in Water 1,000 ML IVC PRN (18:27)
[2020-12-10] MEDS ORDERED: *HR* Dextrose 50 % in Water (Vial) 50 ML VIAL IVP PRN (18:27)
[2020-12-10] MEDS ORDERED: Dextrose Gel 15 GM/37.5 ML TUBE PO PRN ×2 (18:27)
[2020-12-10] MEDS ORDERED: D5% in 0.45% NACL 1,000 ML IVC SCH (18:30)
[2020-12-10] MEDS: D5% in 0.45% NACL 1,000 ML IVC SCH (21:08)
[2020-12-10] MEDS ORDERED: *HR* Promethazine 25 MG/ML VIAL IM PRN (21:53)
[2020-12-10] MEDS ORDERED: *HR* LORazepam 2 MG/ML VIAL IVP SCH (22:00)
[2020-12-10] MEDS: *HR* Heparin 5,000 UNIT/ML VIAL SQ SCH (22:44)
[2020-12-10] MEDS ORDERED: Chloraseptic Spray 177 ML BOTTLE MM PRN (22:52)
[2020-12-11] MEDS: Insulin LISPRO 300 UNITS/3 ML VIAL SUBQ SCH ×4 (00:44→23:35)
[2020-12-11 01:03] LABS: Bilirubin,Urine Negative (Negative); Blood,Urine Negative (Negative); Clarity,Urine Clear (Clear); Color,Urine Colorless (Yellow); Glucose,Urine (UA) Normal (Normal); Ketones,Urine Negative (Negative); Leukocyte Esterase,Urine Negative (Negative); Nitrite,Urine Negative (Negative); Protein,Urine Negative (Neg-Trace); Specific Gravity,Urine 1.008 (1.010-1.025); Urobilinogen,Urine Normal (Normal)
[2020-12-11] MEDS: D5% in 0.45% NACL 1,000 ML IVC SCH (05:30)
[2020-12-11] MEDS: *HR* Heparin 5,000 UNIT/ML VIAL SQ SCH ×3 (05:31→22:11)
[2020-12-11 06:35] LABS: Basophils % 0.5 %; Eosinophils # 0.1 K/mcL (0.0-0.6); Eosinophils % 2.1 %; Hemoglobin 9.9 g/dL (11.5-15.4); Immature Granulocytes % 0.5 % (0-4); Lymphocytes # 0.8 K/mcL (0.6-4.6); Lymphocytes % 14.8 %; Mean Corpuscular HGB Conc 30.9 g/dL (31.6-35.5); Mean Corpuscular Hemoglobin 27.6 pg (28.0-33.3); Mean Corpuscular Volume 89.1 fL (83.0-100.0); Mean Platelet Volume 10.2 fL (9.4-12.4); Monocytes # 0.6 K/mcL (0.0-1.3); Monocytes % 11.1 %; Platelet Count 317 K/mcL (140-400); Red Blood Count 3.59 M/mcL (3.82-4.97); Red Cell Distribution Width 14.8 % (11.5-14.5); White Blood Count 5.7 K/mcL (4.3-11.1)
[2020-12-11 06:54] LABS: BUN/Creatinine Ratio 15 (6-26); Blood Urea Nitrogen 7 mg/dL (8-23); Calcium 8.5 mg/dL (8.6-10.3); Carbon Dioxide 27 mEq/L (23-29); Chloride 97 mEq/L (98-107); Glucose 225 mg/dL (70-105); Magnesium 1.7 mg/dL (1.6-2.6); Osmolality,Calculated 275 (280-300); Phosphorous 2.9 mg/dL (2.7-4.5); Sodium 130 mEq/L (136-145); eGFR For African Americans > 60 (> 60); eGFR For Non-African Americans > 60 (> 60)
[2020-12-11] MEDS ORDERED: *HR* Vasopressin 20 UNIT/ML VIAL ONE (07:25)
[2020-12-11] MEDS ORDERED: Albumin Human 5% 12.5 GM/250 ML IV.SOLN ONE (07:25)
[2020-12-11] MEDS ORDERED: Acetaminophen IV 0 MG/0 ML BAG IVPB ONE (07:25)
[2020-12-11] MEDS ORDERED: Lidocaine HCL 4 ML Topical Solution (Laryng-O-Jet Kit Sterile Pak) TP ONE (07:41)
[2020-12-11] MEDS ORDERED: *HR* FentaNYL (PF) 100 MCG/2 ML VIAL ONE (07:50)
[2020-12-11] MEDS ORDERED: *HR* HYDROMORPHONE 2 MG/ML VIAL ONE (07:50)
[2020-12-11] MEDS ORDERED: *HR* Propofol 200 MG/20 ML VIAL IVP ONE (07:51)
[2020-12-11] MEDS ORDERED: *HR* Rocuronium Bromide 50 MG/5 ML VIAL ONE ×2 (07:51→11:48)
[2020-12-11] MEDS ORDERED: *HR* Succinylcholine 200 MG/10 ML VIAL IVP ONE (07:51)
[2020-12-11] MEDS ORDERED: Ondansetron 4 MG/2 ML VIAL ONE (07:51)
[2020-12-11] MEDS ORDERED: *HR* Magnesium Sulfate 1 GM/2 ML VIAL ONE (07:51)
[2020-12-11] MEDS ORDERED: Dexamethasone 4 MG/ML VIAL ONE (07:51)
[2020-12-11] MEDS ORDERED: Lidocaine -MPF 2% 2 ML VIAL ONE (07:51)
[2020-12-11] MEDS ORDERED: cefOXitin 1,000 MG, Sodium Chloride IRRigation 1,000 ML IR ONE ×2 (08:30→13:41)
[2020-12-11] MEDS ORDERED: *HR* PHENYLEPHRINE 1,000 MCG/10 ML SYRINGE IVP ONE (10:06)
[2020-12-11] MEDS ORDERED: CeFAZolin Syr 2,000MG/20 ML 2,000 MG/20 ML SYRINGE IVPB ONE ×2 (10:13→13:41)
[2020-12-11] MEDS ORDERED: *HR* OxyCODONE Immed Rel 5 MG TABLET PO PRN (10:46)
[2020-12-11] MEDS ORDERED: *HR* HYDROmorphone (PF) 1 MG/ML SYRINGE IVP PRN (10:46)
[2020-12-11] MEDS ORDERED: *HR* Labetalol 20 MG/4 ML SYRINGE IVP ONE (12:05)
[2020-12-11] MEDS ORDERED: Ondansetron 4 MG/2 ML VIAL IVP PRN (13:41)
[2020-12-11] MEDS ORDERED: D5% in Water 1,000 ML IVC PRN (13:41)
[2020-12-11] MEDS ORDERED: Ketorolac 15 MG/ML VIAL IVP PRN (13:41)
[2020-12-11] MEDS ORDERED: Naloxone 0.4 MG/ML INJ IVP PRN (13:41)
[2020-12-11] MEDS ORDERED: Dextrose Gel 15 GM/37.5 ML TUBE PO PRN ×2 (13:41)
[2020-12-11] MEDS ORDERED: *HR* Dextrose 50 % in Water (Vial) 50 ML VIAL IVP PRN (13:41)
[2020-12-11] MEDS ORDERED: *HR* Promethazine 25 MG/ML VIAL IM PRN (13:41)
[2020-12-11] MEDS ORDERED: Chloraseptic Spray 177 ML BOTTLE MM PRN (13:41)
[2020-12-11] MEDS: Ondansetron 4 MG/2 ML VIAL IVP PRN (20:35)
[2020-12-12] MEDS ORDERED: Morphine Sulfate 2 MG/ML SYRINGE IVP ONE (01:04)
[2020-12-12 03:40] LABS: Basophils % 0.2 %; Hematocrit 31.9 % (35.3-44.9); Hemoglobin 10.3 g/dL (11.5-15.4); Immature Granulocytes % 0.3 % (0-4); Lymphocytes # 0.8 K/mcL (0.6-4.6); Lymphocytes % 6.6 %; Mean Corpuscular HGB Conc 32.3 g/dL (31.6-35.5); Mean Corpuscular Hemoglobin 28.7 pg (28.0-33.3); Mean Corpuscular Volume 88.9 fL (83.0-100.0); Mean Platelet Volume 10.7 fL (9.4-12.4); Monocytes % 8.1 %; Neutrophils # 10.8 K/mcL (1.6-8.9); Platelet Count 362 K/mcL (140-400); Red Blood Count 3.59 M/mcL (3.82-4.97); Red Cell Distribution Width 14.7 % (11.5-14.5); Segmented Neutrophils % 84.8 %
[2020-12-12 03:41] LABS: White Blood Count 12.7 K/mcL (4.3-11.1)
[2020-12-12 03:53] LABS: INR 1.4; Prothrombin Time 15.6 Seconds (9.4-12.1)
[2020-12-12 03:55] LABS: BUN/Creatinine Ratio 27 (6-26); Blood Urea Nitrogen 14 mg/dL (8-23); Calcium 8.9 mg/dL (8.6-10.3); Carbon Dioxide 29 mEq/L (23-29); Chloride 94 mEq/L (98-107); Glucose 174 mg/dL (70-105); Magnesium 1.9 mg/dL (1.6-2.6); Osmolality,Calculated 277 (280-300); Phosphorous 3.9 mg/dL (2.7-4.5); Potassium 4.1 mEq/L (3.5-5.1); Sodium 131 mEq/L (136-145); eGFR For African Americans > 60 (> 60); eGFR For Non-African Americans > 60 (> 60)
[2020-12-12] MEDS: *HR* Heparin 5,000 UNIT/ML VIAL SQ SCH ×3 (05:19→21:31)
[2020-12-12] MEDS: Insulin LISPRO 300 UNITS/3 ML VIAL SUBQ SCH ×4 (05:19→19:21)
[2020-12-12] MEDS: Pantoprazole 40 MG VIAL IVP SCH (07:53)
[2020-12-12] MEDS: Ondansetron 4 MG/2 ML VIAL IVP PRN (09:46)
[2020-12-12] MEDS: Dextromethorphan Polistrx(12h) 30 MG/5 ML UDC PO SCH ×2 (12:56→20:00)
[2020-12-12] MEDS: Acetaminophen IV 1,000 MG/100 ML BAG IVPB SCH ×2 (12:56→19:20)
[2020-12-12] MEDS: *HR* LORazepam 2 MG/ML VIAL IVP PRN ×2 (13:00→21:32)
[2020-12-12] MEDS: 0.9 % Sodium Chloride 1,000 ML IVC SCH (15:36)
[2020-12-12] MEDS ORDERED: cefTRIAXone 1,000 MG in 0.9 % Sodium Chloride Mini Bag 100 ML IVPB ONE (17:06)
[2020-12-12] MEDS ORDERED: Azithromycin 500 MG in 0.9 % Sodium Chloride 250 ML IVPB ONE (17:06)
[2020-12-13] MEDS: Insulin LISPRO 300 UNITS/3 ML VIAL SUBQ SCH ×4 (00:28→20:14)
[2020-12-13] MEDS: Acetaminophen IV 1,000 MG/100 ML BAG IVPB SCH ×4 (00:28→17:45)
[2020-12-13 03:14] LABS: Basophils % 0.3 %; Eosinophils # 0.2 K/mcL (0.0-0.6); Eosinophils % 1.5 %; Hematocrit 27.6 % (35.3-44.9); Immature Granulocytes % 0.5 % (0-4); Lymphocytes # 1.3 K/mcL (0.6-4.6); Lymphocytes % 9.7 %; Mean Corpuscular HGB Conc 31.5 g/dL (31.6-35.5); Mean Corpuscular Hemoglobin 28.2 pg (28.0-33.3); Mean Corpuscular Volume 89.3 fL (83.0-100.0); Mean Platelet Volume 10.4 fL (9.4-12.4); Monocytes # 1.3 K/mcL (0.0-1.3); Monocytes % 10.2 %; Neutrophils # 10.1 K/mcL (1.6-8.9); Platelet Count 295 K/mcL (140-400); Red Blood Count 3.09 M/mcL (3.82-4.97); Red Cell Distribution Width 15.1 % (11.5-14.5); Segmented Neutrophils % 77.8 %
[2020-12-13 03:15] LABS: Hemoglobin 8.7 g/dL (11.5-15.4)
[2020-12-13 03:31] LABS: BUN/Creatinine Ratio 56 (6-26); Blood Urea Nitrogen 25 mg/dL (8-23); Calcium 8.3 mg/dL (8.6-10.3); Carbon Dioxide 29 mEq/L (23-29); Chloride 96 mEq/L (98-107); Glucose 156 mg/dL (70-105); Magnesium 1.7 mg/dL (1.6-2.6); Osmolality,Calculated 282 (280-300); Phosphorous 3.1 mg/dL (2.7-4.5); Potassium 3.6 mEq/L (3.5-5.1); Sodium 132 mEq/L (136-145); eGFR For African Americans > 60 (> 60); eGFR For Non-African Americans > 60 (> 60)
[2020-12-13] MEDS: *HR* Heparin 5,000 UNIT/ML VIAL SQ SCH ×3 (06:01→21:42)
[2020-12-13] MEDS: 0.9 % Sodium Chloride 1,000 ML IVC SCH (06:01)
[2020-12-13 08:21] LABS: Hematocrit 28.7 % (35.3-44.9)
[2020-12-13] MEDS: Pantoprazole 40 MG VIAL IVP SCH (08:36)
[2020-12-13] MEDS ORDERED: Isovue-370 500 ML BOTTLE IVP ONE (09:27)
[2020-12-13] MEDS: Dextromethorphan Polistrx(12h) 30 MG/5 ML UDC PO SCH ×2 (10:09→17:48)
[2020-12-13] MEDS ORDERED: Isovue-370 500 ML BOTTLE PO ONE (11:49)
[2020-12-13] MEDS: Piperacillin/Tazobactam 3.375 GM in 0.9 % Sodium Chloride Mini Bag 100 ML IVPB SCH (15:56)
[2020-12-13] MEDS ORDERED: cefTRIAXone 1,000 MG in 0.9 % Sodium Chloride Mini Bag 100 ML IVPB SCH (17:00)
[2020-12-13] MEDS: Azithromycin 500 MG in 0.9 % Sodium Chloride 250 ML IVPB SCH (21:42)
[2020-12-13] MEDS: *HR* LORazepam 2 MG/ML VIAL IVP PRN (21:43)
[2020-12-14] MEDS: Insulin LISPRO 300 UNITS/3 ML VIAL SUBQ SCH ×5 (00:54→23:57)
[2020-12-14] MEDS: Acetaminophen IV 1,000 MG/100 ML BAG IVPB SCH ×4 (00:55→17:58)
[2020-12-14] MEDS: Piperacillin/Tazobactam 3.375 GM in 0.9 % Sodium Chloride Mini Bag 100 ML IVPB SCH ×4 (00:56→23:57)
[2020-12-14] MEDS: *HR* Heparin 5,000 UNIT/ML VIAL SQ SCH ×3 (06:38→20:51)
[2020-12-14] MEDS: Dextromethorphan Polistrx(12h) 30 MG/5 ML UDC PO SCH ×2 (06:38→17:58)
[2020-12-14 08:11] LABS: Basophils % 0.3 %; Eosinophils # 0.2 K/mcL (0.0-0.6); Hematocrit 26.3 % (35.3-44.9); Hemoglobin 8.4 g/dL (11.5-15.4); Immature Granulocytes % 0.7 % (0-4); Lymphocytes # 0.8 K/mcL (0.6-4.6); Lymphocytes % 6.6 %; Mean Corpuscular HGB Conc 31.9 g/dL (31.6-35.5); Mean Corpuscular Hemoglobin 28.3 pg (28.0-33.3); Mean Corpuscular Volume 88.6 fL (83.0-100.0); Mean Platelet Volume 10.4 fL (9.4-12.4); Monocytes # 0.8 K/mcL (0.0-1.3); Monocytes % 7.2 %; Neutrophils # 9.5 K/mcL (1.6-8.9); Platelet Count 266 K/mcL (140-400); Red Blood Count 2.97 M/mcL (3.82-4.97); Red Cell Distribution Width 14.9 % (11.5-14.5); Segmented Neutrophils % 83.2 %; White Blood Count 11.5 K/mcL (4.3-11.1)
[2020-12-14] MEDS: Pantoprazole 40 MG VIAL IVP SCH (08:14)
[2020-12-14 08:41] LABS: BUN/Creatinine Ratio 45 (6-26); Blood Urea Nitrogen 17 mg/dL (8-23); Carbon Dioxide 26 mEq/L (23-29); Chloride 97 mEq/L (98-107); Glucose 156 mg/dL (70-105); Magnesium 1.5 mg/dL (1.6-2.6); Osmolality,Calculated 283 (280-300); Phosphorous 2.8 mg/dL (2.7-4.5); Potassium 3.5 mEq/L (3.5-5.1); Sodium 134 mEq/L (136-145); eGFR For African Americans > 60 (> 60); eGFR For Non-African Americans > 60 (> 60)
[2020-12-14] MEDS: Azithromycin 500 MG in 0.9 % Sodium Chloride 250 ML IVPB SCH ×2 (21:17→22:08)
[2020-12-14] MEDS: *HR* LORazepam 2 MG/ML VIAL IVP PRN (23:56)
[2020-12-15] MEDS: Dextromethorphan Polistrx(12h) 30 MG/5 ML UDC PO SCH ×2 (05:58→18:48)
[2020-12-15] MEDS: *HR* Heparin 5,000 UNIT/ML VIAL SQ SCH ×3 (05:59→20:55)
[2020-12-15 08:12] LABS: Hematocrit 25.3 % (35.3-44.9); Mean Corpuscular HGB Conc 31.6 g/dL (31.6-35.5); Mean Corpuscular Hemoglobin 28.5 pg (28.0-33.3); Mean Platelet Volume 10.6 fL (9.4-12.4); Platelet Count 295 K/mcL (140-400); Red Blood Count 2.81 M/mcL (3.82-4.97); Red Cell Distribution Width 14.7 % (11.5-14.5); White Blood Count 9.7 K/mcL (4.3-11.1)
[2020-12-15 08:15] LABS: BUN/Creatinine Ratio 49 (6-26); Blood Urea Nitrogen 18 mg/dL (8-23); Calcium 7.9 mg/dL (8.6-10.3); Carbon Dioxide 29 mEq/L (23-29); Chloride 98 mEq/L (98-107); Glucose 164 mg/dL (70-105); Magnesium 1.7 mg/dL (1.6-2.6); Osmolality,Calculated 286 (280-300); Potassium 3.3 mEq/L (3.5-5.1); Sodium 135 mEq/L (136-145); eGFR For African Americans > 60 (> 60); eGFR For Non-African Americans > 60 (> 60)
[2020-12-15] MEDS ORDERED: Acetaminophen 325 MG TABLET PO PRN (09:45)
[2020-12-15] MEDS: Piperacillin/Tazobactam 3.375 GM in 0.9 % Sodium Chloride Mini Bag 100 ML IVPB SCH ×2 (10:32→18:50)
[2020-12-15] MEDS: Insulin LISPRO 300 UNITS/3 ML VIAL SUBQ SCH ×4 (10:32→20:55)
[2020-12-15] MEDS: Pantoprazole 40 MG VIAL IVP SCH (10:33)
[2020-12-15] MEDS ORDERED: GI Cocktail 40 ML EACH PO ONE (15:46)
[2020-12-15] MEDS ORDERED: Furosemide 20 MG/2 ML VIAL IVP ONE (16:27)
[2020-12-15] MEDS: *HR* LORazepam 2 MG/ML VIAL IVP PRN (20:56)
[2020-12-15] MEDS: Azithromycin 500 MG in 0.9 % Sodium Chloride 250 ML IVPB SCH (23:32)
[2020-12-16] MEDS: Piperacillin/Tazobactam 3.375 GM in 0.9 % Sodium Chloride Mini Bag 100 ML IVPB SCH ×4 (00:34→23:53)
[2020-12-16] MEDS: Dextromethorphan Polistrx(12h) 30 MG/5 ML UDC PO SCH (05:35)
[2020-12-16] MEDS: *HR* Heparin 5,000 UNIT/ML VIAL SQ SCH ×3 (05:36→20:38)
[2020-12-16 06:00] LABS: Hematocrit 25.9 % (35.3-44.9); Hemoglobin 8.3 g/dL (11.5-15.4); Mean Corpuscular Hemoglobin 28.5 pg (28.0-33.3); Mean Platelet Volume 10.2 fL (9.4-12.4); Platelet Count 278 K/mcL (140-400); Red Blood Count 2.91 M/mcL (3.82-4.97); White Blood Count 9.9 K/mcL (4.3-11.1)
[2020-12-16 06:45] LABS: BUN/Creatinine Ratio 32 (6-26); Blood Urea Nitrogen 13 mg/dL (8-23); Carbon Dioxide 30 mEq/L (23-29); Chloride 95 mEq/L (98-107); Glucose 224 mg/dL (70-105); Magnesium 1.6 mg/dL (1.6-2.6); Osmolality,Calculated 283 (280-300); Potassium 3.7 mEq/L (3.5-5.1); Sodium 133 mEq/L (136-145); eGFR For African Americans > 60 (> 60); eGFR For Non-African Americans > 60 (> 60)
[2020-12-16] MEDS ORDERED: Furosemide 20 MG/2 ML VIAL IVP ONE (07:17)
[2020-12-16] MEDS: Pantoprazole 40 MG VIAL IVP SCH (09:52)
[2020-12-16] MEDS: Furosemide 20 MG/2 ML VIAL IVP SCH ×2 (10:14→20:38)
[2020-12-16] MEDS: Nystatin POWDER 30 GM BOTTLE TP SCH ×3 (10:16→21:42)
[2020-12-16] MEDS: Insulin LISPRO 300 UNITS/3 ML VIAL SUBQ SCH ×4 (10:16→20:39)
[2020-12-16 15:03] LABS: VBG HCO3 32 mEq/L (21-27); VBG PCO2 52 mmHg (41-51); VBG PO2 71 mmHg (25-50)
[2020-12-16] MEDS: Aspirin Enteric Coated 81 MG Tablet PO SCH (20:37)
[2020-12-17 04:25] LABS: Hemoglobin 8.2 g/dL (11.5-15.4); Mean Corpuscular HGB Conc 31.5 g/dL (31.6-35.5); Mean Corpuscular Hemoglobin 27.8 pg (28.0-33.3); Mean Corpuscular Volume 88.1 fL (83.0-100.0); Platelet Count 297 K/mcL (140-400); Red Blood Count 2.95 M/mcL (3.82-4.97); Red Cell Distribution Width 15.2 % (11.5-14.5); White Blood Count 10.4 K/mcL (4.3-11.1)
[2020-12-17 04:45] LABS: BUN/Creatinine Ratio 20 (6-26); Blood Urea Nitrogen 10 mg/dL (8-23); Calcium 8.2 mg/dL (8.6-10.3); Carbon Dioxide 34 mEq/L (23-29); Chloride 92 mEq/L (98-107); Glucose 267 mg/dL (70-105); Osmolality,Calculated 284 (280-300); Potassium 3.7 mEq/L (3.5-5.1); Sodium 133 mEq/L (136-145); eGFR For African Americans > 60 (> 60); eGFR For Non-African Americans > 60 (> 60)
[2020-12-17] MEDS: *HR* Heparin 5,000 UNIT/ML VIAL SQ SCH ×3 (05:16→20:21)
[2020-12-17] MEDS: Furosemide 20 MG/2 ML VIAL IVP SCH ×2 (07:39→20:09)
[2020-12-17] MEDS: amLODIPine 5 MG TABLET PO SCH (07:39)
[2020-12-17] MEDS: Insulin LISPRO 300 UNITS/3 ML VIAL SUBQ SCH ×4 (07:40→20:17)
[2020-12-17] MEDS: Piperacillin/Tazobactam 3.375 GM in 0.9 % Sodium Chloride Mini Bag 100 ML IVPB SCH ×3 (07:41→23:39)
[2020-12-17] MEDS: Insulin DETEMIR 100 UNIT/ML X5UNITS SUBQ SCH (12:25)
[2020-12-17] MEDS: Nystatin POWDER 30 GM BOTTLE TP SCH ×3 (12:26→20:18)
[2020-12-17] MEDS: Aspirin Enteric Coated 81 MG Tablet PO SCH (20:09)
[2020-12-18] MEDS: *HR* Heparin 5,000 UNIT/ML VIAL SQ SCH ×3 (05:26→21:20)
[2020-12-18] MEDS: Furosemide 20 MG/2 ML VIAL IVP SCH ×2 (09:41→21:20)
[2020-12-18] MEDS: amLODIPine 5 MG TABLET PO SCH (09:41)
[2020-12-18] MEDS: Insulin DETEMIR 100 UNIT/ML X5UNITS SUBQ SCH (09:42)
[2020-12-18] MEDS: Piperacillin/Tazobactam 3.375 GM in 0.9 % Sodium Chloride Mini Bag 100 ML IVPB SCH (09:42)
[2020-12-18] MEDS: Insulin LISPRO 300 UNITS/3 ML VIAL SUBQ SCH ×4 (09:42→21:20)
[2020-12-18] MEDS: Nystatin POWDER 30 GM BOTTLE TP SCH ×3 (09:43→21:21)
[2020-12-18] MEDS: Aspirin Enteric Coated 81 MG Tablet PO SCH (21:19)
[2020-12-19] MEDS: *HR* Heparin 5,000 UNIT/ML VIAL SQ SCH ×3 (05:49→20:19)
[2020-12-19] MEDS: amLODIPine 5 MG TABLET PO SCH (09:43)
[2020-12-19] MEDS: Furosemide 20 MG/2 ML VIAL IVP SCH ×2 (09:43→20:19)
[2020-12-19] MEDS: Nystatin POWDER 30 GM BOTTLE TP SCH ×3 (09:44→20:19)
[2020-12-19] MEDS: Insulin LISPRO 300 UNITS/3 ML VIAL SUBQ SCH ×4 (09:45→20:20)
[2020-12-19] MEDS: Insulin DETEMIR 100 UNIT/ML X5UNITS SUBQ SCH (09:46)
[2020-12-19] MEDS: polyethylene glycoL 3350 17 GM POWD.PACK PO SCH ×2 (11:04→20:19)
[2020-12-19] MEDS: Aspirin Enteric Coated 81 MG Tablet PO SCH (20:19)
[2020-12-20] MEDS: *HR* Heparin 5,000 UNIT/ML VIAL SQ SCH (05:46)
[2020-12-20] MEDS: amLODIPine 5 MG TABLET PO SCH (09:10)
[2020-12-20] MEDS: Insulin DETEMIR 100 UNIT/ML X5UNITS SUBQ SCH (09:10)
[2020-12-20] MEDS: Furosemide 20 MG/2 ML VIAL IVP SCH (09:10)
[2020-12-20] MEDS: polyethylene glycoL 3350 17 GM POWD.PACK PO SCH (09:10)
[2020-12-20] MEDS: Insulin LISPRO 300 UNITS/3 ML VIAL SUBQ SCH ×2 (09:12→12:19)
[2020-12-20] MEDS: Nystatin POWDER 30 GM BOTTLE TP SCH (09:13)
[2020-12-20 10:38] LABS: Adenovirus Not Detected (Not Detect); Bordetella Pertussis Not Detected (Not Detect); Chlamydophila pneumoniae Not Detected (Not Detect); Coronavirus 229E Not Detected (Not Detect); Coronavirus HKU1 Not Detected (Not Detect); Coronavirus NL63 Not Detected (Not Detect); Coronavirus OC43 Not Detected (Not Detect); Human Metapneumovirus Not Detected (Not Detect); Human Rhinovirus/Enterovirus Not Detected (Not Detect); Influenza A Subtype 2009 H1 Not Detected (Not Detect); Influenza B Not Detected (Not Detect); Mycoplasma pneumoniae Not Detected (Not Detect); Parainfluenza Virus 1 Not Detected (Not Detect); Parainfluenza Virus 2 Not Detected (Not Detect); Parainfluenza Virus 3 Not Detected (Not Detect); Parainfluenza Virus 4 Not Detected (Not Detect); Respiratory Syncytial Virus Not Detected (Not Detect); SARS-CoV-2 Not Detected (Not Detect)
[2020-12-20 10:54] VITALS: BP 114/71
[2020-12-20 11:45] LABS: Hematocrit 27.8 % (35.3-44.9); Hemoglobin 8.8 g/dL (11.5-15.4)
== END 2020-12-20 13:41 | DRG 329 ==
LOC: EMEROOARM 14:47 → 3ANU 14:47 → SUATTDRO 18:29 → 3ANU 19:53 → SUATTDRO 12-12 18:21
PROVIDERS: ADMIT Internal Medicine; ATTEND Internal Medicine

== ENCOUNTER 2020-12-25 22:09 | Observation (INO) ==
[2020-12-25] MEDS ORDERED: Isovue-370 500 ML BOTTLE IVP ONE (22:29)
[2020-12-25] MEDS ORDERED: Ondansetron 4 MG/2 ML VIAL IVP ONE (22:31)
[2020-12-25] MEDS ORDERED: Famotidine 20 MG/2 ML VIAL IVP ONE (22:31)
[2020-12-25] MEDS ORDERED: 0.9 % Sodium Chloride 1,000 ML IVC ONE (22:34)
[2020-12-25 23:33] LABS: Bilirubin,Urine Negative (Negative); Blood,Urine Negative (Negative); Clarity,Urine Clear (Clear); Color,Urine Light-Yellow (Yellow); Glucose,Urine (UA) Normal (Normal); Ketones,Urine 10 mg/dL (Negative); Leukocyte Esterase,Urine Negative (Negative); Nitrite,Urine Negative (Negative); PH,Urine 7.5 pH Units (5.0-8.0); Protein,Urine Trace mg/dL (Neg-Trace); Specific Gravity,Urine 1.017 (1.010-1.025)
[2020-12-26 00:22] LABS: Alanine Aminotransferase 12 Units/L (7-52); Albumin 3.1 g/dL (3.5-5.7); Albumin/Globulin Ratio 0.9 (1.1-2.2); Alkaline Phosphatase 77 Units/L (34-104); BUN/Creatinine Ratio 26 (6-26); Bilirubin,Direct 0.3 mg/dL (0.0-0.2); Bilirubin,Indirect 0.5 mg/dL (0.0-1.0); Bilirubin,Total 0.8 mg/dL (0.3-1.0); Blood Urea Nitrogen 14 mg/dL (8-23); Calcium 9.1 mg/dL (8.6-10.3); Carbon Dioxide 33 mEq/L (23-29); Chloride 87 mEq/L (98-107); Globulin 3.3 g/dL (2.4-3.5); Glucose 206 mg/dL (70-105); Lipase 7 Units/L (11-82); Osmolality,Calculated 274 (280-300); Potassium 4.4 mEq/L (3.5-5.1); Sodium 129 mEq/L (136-145); Total Protein 6.4 g/dL (6.4-8.9); eGFR For African Americans > 60 (> 60); eGFR For Non-African Americans > 60 (> 60)
[2020-12-26 00:30] LABS: Basophils # 0.1 K/mcL (0.0-0.2); Basophils % 0.5 %; Eosinophils # 0.3 K/mcL (0.0-0.6); Eosinophils % 2.7 %; Hematocrit 27.7 % (35.3-44.9); Hemoglobin 8.7 g/dL (11.5-15.4); Immature Granulocytes % 0.5 % (0-4); Lymphocytes # 1.1 K/mcL (0.6-4.6); Lymphocytes % 11.2 %; Mean Corpuscular HGB Conc 31.4 g/dL (31.6-35.5); Mean Corpuscular Hemoglobin 27.4 pg (28.0-33.3); Mean Corpuscular Volume 87.4 fL (83.0-100.0); Mean Platelet Volume 10.2 fL (9.4-12.4); Monocytes # 1.1 K/mcL (0.0-1.3); Monocytes % 10.6 %; Neutrophils # 7.6 K/mcL (1.6-8.9); Platelet Count 456 K/mcL (140-400); Red Blood Count 3.17 M/mcL (3.82-4.97); Red Cell Distribution Width 15.5 % (11.5-14.5); Segmented Neutrophils % 74.5 %; White Blood Count 10.1 K/mcL (4.3-11.1)
[2020-12-26 01:27] LABS: Aspartate Amino Transferase 26 Units/L (13-39)
[2020-12-26] MEDS ORDERED: *HR* Promethazine 25 MG/ML VIAL IM PRN (03:07)
[2020-12-26] MEDS ORDERED: Naloxone 0.4 MG/ML INJ IVP PRN (03:07)
[2020-12-26] MEDS ORDERED: Ondansetron 4 MG/2 ML VIAL IVP PRN (03:07)
[2020-12-26] MEDS ORDERED: Acetaminophen 325 MG TABLET PO PRN (03:13)
[2020-12-26] MEDS ORDERED: Ringers Solution, Lactated 1,000 ML IVC SCH (03:15)
[2020-12-26 06:02] LABS: Basophils # 0.1 K/mcL (0.0-0.2); Basophils % 0.6 %; Eosinophils # 0.2 K/mcL (0.0-0.6); Eosinophils % 2.4 %; Hematocrit 26.9 % (35.3-44.9); Hemoglobin 8.4 g/dL (11.5-15.4); Immature Granulocytes % 0.8 % (0-4); Lymphocytes # 1.1 K/mcL (0.6-4.6); Lymphocytes % 10.9 %; Mean Corpuscular HGB Conc 31.2 g/dL (31.6-35.5); Mean Corpuscular Hemoglobin 27.5 pg (28.0-33.3); Mean Corpuscular Volume 87.9 fL (83.0-100.0); Mean Platelet Volume 10.9 fL (9.4-12.4); Monocytes # 1.2 K/mcL (0.0-1.3); Monocytes % 12.1 %; Neutrophils # 7.1 K/mcL (1.6-8.9); Platelet Count 379 K/mcL (140-400); Red Blood Count 3.06 M/mcL (3.82-4.97); Red Cell Distribution Width 15.5 % (11.5-14.5); Segmented Neutrophils % 73.2 %; White Blood Count 9.7 K/mcL (4.3-11.1)
[2020-12-26 06:21] LABS: BUN/Creatinine Ratio 28 (6-26); Blood Urea Nitrogen 13 mg/dL (8-23); Calcium 8.8 mg/dL (8.6-10.3); Carbon Dioxide 27 mEq/L (23-29); Chloride 92 mEq/L (98-107); Glucose 210 mg/dL (70-105); Osmolality,Calculated 268 (280-300); Potassium 4.5 mEq/L (3.5-5.1); Sodium 126 mEq/L (136-145); eGFR For African Americans > 60 (> 60); eGFR For Non-African Americans > 60 (> 60)
[2020-12-26] MEDS: polyethylene glycoL 3350 17 GM POWD.PACK PO SCH (09:24)
[2020-12-26] MEDS: 0.9 % Sodium Chloride 1,000 ML IVC SCH ×2 (09:24→19:57)
[2020-12-26] MEDS: Bisacodyl 10 MG RECTAL SUPPOSITORY RC SCH (09:24)
[2020-12-26] MEDS ORDERED: Dextrose Gel 15 GM/37.5 ML TUBE PO PRN ×2 (11:09)
[2020-12-26] MEDS ORDERED: D5% in Water 1,000 ML IVC PRN (11:09)
[2020-12-26] MEDS ORDERED: *HR* Dextrose 50 % in Water (Vial) 50 ML VIAL IVP PRN (11:09)
[2020-12-26] MEDS: Insulin LISPRO 300 UNITS/3 ML VIAL SUBQ SCH ×2 (11:59→17:03)
[2020-12-26] MEDS ORDERED: Chloraseptic Spray 177 ML BOTTLE PO PRN (16:28)
[2020-12-26] MEDS: MOM Conc 10 ML UD.LIQ PO SCH (19:56)
[2020-12-26] MEDS: Aspirin Enteric Coated 81 MG Tablet PO SCH (19:57)
[2020-12-26] MEDS: Insulin DETEMIR 100 UNIT/ML X5UNITS SUBQ SCH (20:50)
[2020-12-27 09:04] LABS: Basophils # 0.1 K/mcL (0.0-0.2); Basophils % 0.7 %; Eosinophils # 0.3 K/mcL (0.0-0.6); Eosinophils % 4.4 %; Hematocrit 27.4 % (35.3-44.9); Hemoglobin 8.4 g/dL (11.5-15.4); Immature Granulocytes % 0.5 % (0-4); Lymphocytes # 0.9 K/mcL (0.6-4.6); Lymphocytes % 12.3 %; Mean Corpuscular HGB Conc 30.7 g/dL (31.6-35.5); Mean Corpuscular Hemoglobin 27.6 pg (28.0-33.3); Mean Corpuscular Volume 90.1 fL (83.0-100.0); Monocytes # 0.9 K/mcL (0.0-1.3); Monocytes % 12.2 %; Neutrophils # 5.1 K/mcL (1.6-8.9); Platelet Count 401 K/mcL (140-400); Red Blood Count 3.04 M/mcL (3.82-4.97); Red Cell Distribution Width 15.5 % (11.5-14.5); Segmented Neutrophils % 69.9 %; White Blood Count 7.3 K/mcL (4.3-11.1)
[2020-12-27] MEDS: Insulin LISPRO 300 UNITS/3 ML VIAL SUBQ SCH ×3 (09:06→17:13)
[2020-12-27] MEDS: Cholecalciferol (D-3) 1,000 UNIT (25MCG) TABLET PO SCH (09:10)
[2020-12-27] MEDS: Bisacodyl 10 MG RECTAL SUPPOSITORY RC SCH (09:10)
[2020-12-27] MEDS: Cyanocobalamin (B-12) 1,000 MCG TABLET PO SCH (09:10)
[2020-12-27] MEDS: Loratadine 10 MG TABLET PO SCH (09:10)
[2020-12-27] MEDS: Lactobacillus 1 EACH CAP.SPRINK PO SCH (09:10)
[2020-12-27] MEDS: polyethylene glycoL 3350 17 GM POWD.PACK PO SCH (09:10)
[2020-12-27 09:18] LABS: Alanine Aminotransferase 9 Units/L (7-52); Albumin 2.9 g/dL (3.5-5.7); Albumin/Globulin Ratio 0.9 (1.1-2.2); Alkaline Phosphatase 78 Units/L (34-104); Aspartate Amino Transferase 22 Units/L (13-39); BUN/Creatinine Ratio 16 (6-26); Bilirubin,Total 0.7 mg/dL (0.3-1.0); Blood Urea Nitrogen 7 mg/dL (8-23); Calcium 8.8 mg/dL (8.6-10.3); Carbon Dioxide 29 mEq/L (23-29); Chloride 98 mEq/L (98-107); Globulin 3.1 g/dL (2.4-3.5); Glucose 125 mg/dL (70-105); Osmolality,Calculated 275 (280-300); Potassium 4.1 mEq/L (3.5-5.1); Sodium 133 mEq/L (136-145); eGFR For African Americans > 60 (> 60); eGFR For Non-African Americans > 60 (> 60)
[2020-12-27] MEDS ORDERED: Isovue-370 500 ML BOTTLE IVP ONE (15:58)
[2020-12-27] MEDS: *HR* LORazepam 1 MG TABLET PO PRN (17:14)
[2020-12-27] MEDS: MOM Conc 10 ML UD.LIQ PO SCH (21:06)
[2020-12-27] MEDS: Aspirin Enteric Coated 81 MG Tablet PO SCH (21:06)
[2020-12-27] MEDS: Insulin DETEMIR 100 UNIT/ML X5UNITS SUBQ SCH (21:13)
[2020-12-28] MEDS: Cholecalciferol (D-3) 1,000 UNIT (25MCG) TABLET PO SCH (09:03)
[2020-12-28] MEDS: Lactobacillus 1 EACH CAP.SPRINK PO SCH (09:03)
[2020-12-28] MEDS: Cyanocobalamin (B-12) 1,000 MCG TABLET PO SCH (09:03)
[2020-12-28] MEDS: Loratadine 10 MG TABLET PO SCH (09:03)
[2020-12-28] MEDS: Insulin LISPRO 300 UNITS/3 ML VIAL SUBQ SCH ×3 (09:04→17:24)
[2020-12-28] MEDS: polyethylene glycoL 3350 17 GM POWD.PACK PO SCH (09:04)
[2020-12-28] MEDS: Bisacodyl 10 MG RECTAL SUPPOSITORY RC SCH (09:04)
[2020-12-28] MEDS: Insulin DETEMIR 100 UNIT/ML X5UNITS SUBQ SCH (21:19)
[2020-12-28] MEDS: Aspirin Enteric Coated 81 MG Tablet PO SCH (21:21)
[2020-12-28] MEDS: MOM Conc 10 ML UD.LIQ PO SCH (21:22)
[2020-12-29] MEDS: *HR* LORazepam 1 MG TABLET PO PRN (00:19)
[2020-12-29] MEDS: Insulin LISPRO 300 UNITS/3 ML VIAL SUBQ SCH ×2 (08:16→12:47)
[2020-12-29] MEDS: Cholecalciferol (D-3) 1,000 UNIT (25MCG) TABLET PO SCH (08:25)
[2020-12-29] MEDS: Cyanocobalamin (B-12) 1,000 MCG TABLET PO SCH (08:26)
[2020-12-29] MEDS: Loratadine 10 MG TABLET PO SCH (08:26)
[2020-12-29] MEDS: Lactobacillus 1 EACH CAP.SPRINK PO SCH (08:26)
[2020-12-29] MEDS: Bisacodyl 10 MG RECTAL SUPPOSITORY RC SCH (08:26)
[2020-12-29] MEDS: polyethylene glycoL 3350 17 GM POWD.PACK PO SCH (08:26)
[2020-12-29 15:02] VITALS: BP 116/58
== END 2020-12-29 16:12 | disposition home health service (06) ==
LOC: EMEROOARM 22:09 → 3ANU 22:09 → SUATTDRO 12-26 02:08 → 3ANU 12-26 03:02
PROVIDERS: ADMIT Family Medicine; ATTEND Student in an Organized Health Care Education/Training Program